=== PATIENT | male | born 1985 | race Caucasian/White ===

== ENCOUNTER 2016-09-05 02:10 | Emergency (ER) | payer MEDICARE, OTHER ==
[~2016-09-05] VITALS: Ht 165.1 cm; Wt 104.5 kg
[~2016-09-05 02:10] MED LIST: AMIT25TA9 PO; OLAN10TA20 PO
[2016-09-05] MEDS ORDERED: CLON1 PO (02:27)
[2016-09-05] MEDS ORDERED: GABA-531 PO (02:27)
[2016-09-05] MEDS ORDERED: ANTIBIOTIC PO (02:27)
[2016-09-05 03:05] LABS: ANION GAP 15 mmol/L (8-16); BASOPHILS # (AUTO) 0.05 K/uL (0.00-0.20); BASOPHILS % (AUTO) 0.5 % (0.0-2.0); CARBON DIOXIDE 21 mmol/L (22-29); CHLORIDE 109 mmol/L (98-107); CREATININE 1.21 mg/dL (0.60-1.30); EOSINOPHILS # (AUTO) 0.06 K/uL (0.00-0.70); EOSINOPHILS % (AUTO) 0.66 % (1.0-6.0); GLOMERULAR FILTR. RATE CALC > 60 mL/min (>60); HEMOGLOBIN 17.2 g/dL (13.5-17.5); LYMPHOCYTES # (AUTO) 2.4 K/uL (1.0-4.8); LYMPHOCYTES % (AUTO) 26.3 % (22.0-44.0); MEAN CORPUSCULAR HEMOGLOBIN 30.3 pg (26.0-34.0); MEAN CORPUSCULAR HGB CONC 33.7 G/dL (31.0-37.0); MEAN CORPUSCULAR VOLUME 90 fL (80-100); MONOCYTES # (AUTO) 0.6 K/uL (0.1-1.0); MONOCYTES % (AUTO) 6.6 % (2.0-9.0); NEUTROPHILS % (AUTO) 65.8 % (40.0-70.0); PLATELET COUNT (AUTO) 338 K/uL (150-450); POTASSIUM 3.7 mmol/L (3.5-5.1); RED BLOOD CELL COUNT(AUTO) 5.68 MIL/uL (4.50-5.90); RED CELL DISTRIBUTION WIDTH 13.1 % (11.5-14.5); SODIUM SERUM 145 mmol/L (136-145); UREA NITROGEN, BLOOD 7 mg/dL (7-18); WHITE BLOOD COUNT (AUTO) 9.1 K/uL (4.5-11.0)
[2016-09-05 03:12] LABS: ALANINE AMINOTRANSFERASE 58 U/L (12-78); ALBUMIN 4.5 g/dL (3.4-5.0); ASPARTATE AMINOTRANSFERASE 35 U/L (15-37); BILIRUBIN,TOTAL 0.3 mg/dL (0.1-1.0); TOTAL PROTEIN, SERUM 8.5 g/dL (6.4-8.2)
[2016-09-05 03:24] VITALS: BP 111/85
[2016-09-05] MEDS ORDERED: ClonazePAM 1 MG TABLET PO ONE (03:45)
== END 2016-09-05 03:59 | disposition home or self-care (01) ==
LOC: EMS 02:12
DX: F32.9 Major depressive disorder, single episode, unspecified (principal); F20.9 Schizophrenia, unspecified; F41.9 Anxiety disorder, unspecified
CPT/HCPCS: 36415; 80053; 80307; 85025; 99285; G0480

== ENCOUNTER 2017-01-21 14:20 | Inpatient (IN) | payer MEDICARE, OTHER ==
[~2017-01-21] VITALS: Ht 172.7 cm; Wt 85.9 kg
[~2017-01-21 14:20] MED LIST changes: -AMIT25TA9 PO; +ANTIBIOTIC PO; +CLON1 PO; +GABA-531 PO; -OLAN10TA20 PO
[2017-01-21 15:54] LABS: BASOPHILS % (AUTO) 0.4 % (0.0-2.0); EOSINOPHILS % (AUTO) 0.1 % (1.0-6.0); HEMATOCRIT 49.3 % (41-53); HEMOGLOBIN 17.1 g/dL (13.5-17.5); LYMPHOCYTES # (AUTO) 2.4 K/uL (1.0-4.8); LYMPHOCYTES % (AUTO) 18.6 % (22.0-44.0); MEAN CORPUSCULAR HEMOGLOBIN 30.7 pg (26.0-34.0); MEAN CORPUSCULAR HGB CONC 34.8 G/dL (31.0-37.0); MEAN CORPUSCULAR VOLUME 88 fL (80-100); MONOCYTES # (AUTO) 0.9 K/uL (0.1-1.0); MONOCYTES % (AUTO) 7.3 % (2.0-9.0); NEUTROPHILS # (AUTO) 9.3 K/uL (1.8-7.7); NEUTROPHILS % (AUTO) 73.6 % (40.0-70.0); PLATELET COUNT (AUTO) 290 K/uL (150-450); RED BLOOD CELL COUNT(AUTO) 5.59 MIL/uL (4.50-5.90); RED CELL DISTRIBUTION WIDTH 13.7 % (11.5-14.5); WHITE BLOOD COUNT (AUTO) 12.7 K/uL (4.5-11.0)
[2017-01-21 16:20] LABS: ALANINE AMINOTRANSFERASE 35 U/L (12-78); ALBUMIN 5.1 g/dL (3.4-5.0); ANION GAP 12 mmol/L (8-16); ASPARTATE AMINOTRANSFERASE 19 U/L (15-37); BILIRUBIN,TOTAL 1.6 mg/dL (0.1-1.0); CALCIUM, TOTAL 10.3 mg/dL (8.8-10.5); CARBON DIOXIDE 28 mmol/L (22-29); CHLORIDE 101 mmol/L (98-107); CREATININE 0.99 mg/dL (0.60-1.30); GLOMERULAR FILTR. RATE CALC > 60 mL/min (>60); POTASSIUM 4.2 mmol/L (3.5-5.1); SODIUM SERUM 141 mmol/L (136-145); TOTAL PROTEIN, SERUM 9.1 g/dL (6.4-8.2); UREA NITROGEN, BLOOD 24 mg/dL (7-18)
[2017-01-21] MEDS ORDERED: LORazepam 2 MG TABLET PO ONE (19:30)
[2017-01-21] MEDS ORDERED: BENZTROPINE MESYLATE 1 MG TABLET PO ONE (19:30)
[2017-01-21] MEDS ORDERED: HALOPERIDOL 5 MG TABLET PO ONE (19:30)
[2017-01-21] MEDS ORDERED: INFLUENZA VIRUS VACCINE QVS 2017-18 (3YR+)/PF 60 MCG/0.5 ML SYRINGE IM ONE (21:30)
[2017-01-21] MEDS ORDERED: -PHARMACY VACCINE NOTE- MISC ONE ×2 (21:30)
[2017-01-21] MEDS ORDERED: PNEUMOCOCCAL VACCINE POLYVALENT 0.5 ML VIAL [PPSV23] IM ONE (21:30)
[2017-01-21] MEDS: ZOLPIDEM TARTRATE 10 MG TABLET PO PRN (22:23)
[2017-01-21] MEDS: QUEtiapine FUMARATE 100 MG TABLET PO PRN (22:27)
[2017-01-22 08:11] VITALS: BP 114/66
[2017-01-22 08:45] LABS: APPEARANCE,URINE TURBID (CLEAR); GLUCOSE, URINE (UA) NEGATIVE (NEGATIVE); KETONES,URINE 15 mg/dL (NEGATIVE); LEUKOCYTE ESTERASE ,URINE NEGATIVE (NEGATIVE); OCCULT BLOOD,URINE NEGATIVE (NEGATIVE); PROTEIN,URINE TRACE (NEGATIVE)
[2017-01-22 09:04] LABS: SQUAMOUS EPITHELIAL CELL,UR Few /LPF (None Seen); WBC,URINE 0-2 /HPF (0-5)
[2017-01-22 09:05] LABS: AMORPHOUS SEDIMENT,UR Many /LPF (None Seen); CALCIUM OXALATE CRYSTALS,UR Rare /LPF (None Seen)
[2017-01-22] MEDS ORDERED: MAGNESIUM HYDROXIDE SUSPENSION 30 ML UDCUP PO PRN (13:45)
[2017-01-22] MEDS ORDERED: PROMETHAZINE HCL 25 MG TABLET PO PRN (13:45)
[2017-01-22] MEDS ORDERED: GuaiFENesin/D-METHORPHAN [SUGAR-FREE] 200-20MG/10 ML SYRUP UDCUP PO PRN (13:45)
[2017-01-22] MEDS ORDERED: OLANZapine 5 MG RAPDIS TABLET PO PRN (13:45)
[2017-01-22] MEDS ORDERED: LOPERAMIDE HCL 2 MG CAPSULE PO PRN (13:45)
[2017-01-22] MEDS ORDERED: ACETAMINOPHEN 325 MG TABLET PO PRN (13:45)
[2017-01-22] MEDS ORDERED: MAG HYDROX/AL HYDROX/SIMETH ES 30 ML SUSPENSION UDCUP PO PRN (13:45)
[2017-01-22] MEDS ORDERED: HydrOXYzine PAMOATE 50 MG CAPSULE PO PRN (13:45)
[2017-01-22] MEDS: LORazepam 2 MG TABLET PO PRN (16:02)
[2017-01-22 16:06] VITALS: BP 119/69
[2017-01-22] MEDS: THIAMINE HCL 100 MG TABLET PO SCH (16:31)
[2017-01-22] MEDS: QUEtiapine FUMARATE 100 MG TABLET PO PRN (17:26)
[2017-01-22] MEDS: DIVALPROEX SODIUM 500 MG ER TABLET PO SCH (20:27)
[2017-01-22] MEDS ORDERED: OLANZapine 5 MG RAPDIS TABLET PO SCH (21:00)
[2017-01-23 08:13] VITALS: BP 117/68
[2017-01-23] MEDS: NALTREXONE HCL 50 MG TABLET PO SCH (08:16)
[2017-01-23] MEDS: MULTIVITAMINS WITH MINERALS, THERAPEUTIC TABLET PO SCH (08:17)
[2017-01-23] MEDS: THIAMINE HCL 100 MG TABLET PO SCH ×2 (08:17→16:18)
[2017-01-23] MEDS: FOLIC ACID 1 MG TABLET PO SCH (08:17)
[2017-01-23 16:01] VITALS: BP 111/62
[2017-01-23] MEDS: OLANZapine 10 MG RAPDIS TABLET PO SCH (20:32)
[2017-01-23] MEDS: DIVALPROEX SODIUM 500 MG ER TABLET PO SCH (20:32)
[2017-01-23] MEDS: ZOLPIDEM TARTRATE 10 MG TABLET PO PRN (20:40)
[2017-01-23] MEDS: LORazepam 2 MG TABLET PO PRN (21:24)
[2017-01-24 00:03] VITALS: BP 118/76
[2017-01-24 08:24] VITALS: BP 118/60
[2017-01-24] MEDS: MULTIVITAMINS WITH MINERALS, THERAPEUTIC TABLET PO SCH (08:37)
[2017-01-24] MEDS: NALTREXONE HCL 50 MG TABLET PO SCH (08:37)
[2017-01-24] MEDS: THIAMINE HCL 100 MG TABLET PO SCH ×2 (08:37→16:33)
[2017-01-24] MEDS: FOLIC ACID 1 MG TABLET PO SCH (08:37)
[2017-01-24 16:20] VITALS: BP 111/65
[2017-01-24] MEDS: DIVALPROEX SODIUM 500 MG ER TABLET PO SCH (20:40)
[2017-01-24] MEDS: OLANZapine 10 MG RAPDIS TABLET PO SCH (20:40)
[2017-01-24] MEDS: LORazepam 2 MG TABLET PO PRN (21:38)
[2017-01-25 06:23] VITALS: BP 104/60
[2017-01-25 08:00] VITALS: BP 120/66
[2017-01-25] MEDS: NALTREXONE HCL 50 MG TABLET PO SCH (08:41)
[2017-01-25] MEDS: FOLIC ACID 1 MG TABLET PO SCH (08:41)
[2017-01-25] MEDS: MULTIVITAMINS WITH MINERALS, THERAPEUTIC TABLET PO SCH (08:41)
[2017-01-25] MEDS: THIAMINE HCL 100 MG TABLET PO SCH ×2 (08:41→16:37)
[2017-01-25 16:01] VITALS: BP 121/66
[2017-01-25] MEDS: DIVALPROEX SODIUM 500 MG ER TABLET PO SCH (20:43)
[2017-01-25] MEDS: OLANZapine 10 MG RAPDIS TABLET PO SCH (20:43)
[2017-01-25] MEDS: LORazepam 2 MG TABLET PO PRN (21:23)
[2017-01-26 00:04] VITALS: BP 117/75
[2017-01-26] MEDS: ZOLPIDEM TARTRATE 10 MG TABLET PO PRN ×2 (00:07→22:39)
[2017-01-26] MEDS: MULTIVITAMINS WITH MINERALS, THERAPEUTIC TABLET PO SCH (08:33)
[2017-01-26] MEDS: NALTREXONE HCL 50 MG TABLET PO SCH (08:33)
[2017-01-26] MEDS: FOLIC ACID 1 MG TABLET PO SCH (08:33)
[2017-01-26] MEDS: THIAMINE HCL 100 MG TABLET PO SCH ×2 (08:33→16:52)
[2017-01-26 08:35] VITALS: BP 119/63
[2017-01-26] MEDS: LORazepam 2 MG TABLET PO PRN ×2 (14:27→19:34)
[2017-01-26 16:34] VITALS: BP 110/80
[2017-01-26] MEDS: DIVALPROEX SODIUM 500 MG ER TABLET PO SCH (20:51)
[2017-01-26] MEDS: OLANZapine 10 MG RAPDIS TABLET PO SCH (20:51)
[2017-01-27 00:15] VITALS: BP 128/93
[2017-01-27] MEDS: LORazepam 2 MG TABLET PO PRN ×3 (00:26→19:12)
[2017-01-27 08:27] VITALS: BP 115/69
[2017-01-27] MEDS: MULTIVITAMINS WITH MINERALS, THERAPEUTIC TABLET PO SCH (08:35)
[2017-01-27] MEDS: FOLIC ACID 1 MG TABLET PO SCH (08:35)
[2017-01-27] MEDS: THIAMINE HCL 100 MG TABLET PO SCH ×2 (08:35→16:30)
[2017-01-27] MEDS: NALTREXONE HCL 50 MG TABLET PO SCH (08:35)
[2017-01-27 08:48] LABS: BASOPHILS % (AUTO) 0.8 % (0.0-2.0); EOSINOPHILS % (AUTO) 2.2 % (1.0-6.0); HEMATOCRIT 43.9 % (41-53); LYMPHOCYTES # (AUTO) 3.3 K/uL (1.0-4.8); LYMPHOCYTES % (AUTO) 35.8 % (22.0-44.0); MEAN CORPUSCULAR HEMOGLOBIN 30.1 pg (26.0-34.0); MEAN CORPUSCULAR HGB CONC 34.2 G/dL (31.0-37.0); MEAN CORPUSCULAR VOLUME 88 fL (80-100); MONOCYTES # (AUTO) 0.6 K/uL (0.1-1.0); MONOCYTES % (AUTO) 6.4 % (2.0-9.0); NEUTROPHILS # (AUTO) 5.1 K/uL (1.8-7.7); NEUTROPHILS % (AUTO) 54.8 % (40.0-70.0); PLATELET COUNT (AUTO) 267 K/uL (150-450); RED BLOOD CELL COUNT(AUTO) 4.99 MIL/uL (4.50-5.90); RED CELL DISTRIBUTION WIDTH 14.1 % (11.5-14.5); WHITE BLOOD COUNT (AUTO) 9.3 K/uL (4.5-11.0)
[2017-01-27] MEDS ORDERED: DIVA500T52 PO (14:43)
[2017-01-27 16:03] VITALS: BP 117/76
[2017-01-27] MEDS: DIVALPROEX SODIUM 500 MG ER TABLET PO SCH (20:16)
[2017-01-27] MEDS: OLANZapine 10 MG RAPDIS TABLET PO SCH (20:16)
[2017-01-27] MEDS: ZOLPIDEM TARTRATE 10 MG TABLET PO PRN (20:55)
[2017-01-28 00:02] VITALS: BP 121/79
[2017-01-28 08:19] VITALS: BP 121/70
[2017-01-28] MEDS: FOLIC ACID 1 MG TABLET PO SCH (08:25)
[2017-01-28] MEDS: THIAMINE HCL 100 MG TABLET PO SCH ×2 (08:25→16:28)
[2017-01-28] MEDS: NALTREXONE HCL 50 MG TABLET PO SCH (08:25)
[2017-01-28] MEDS: MULTIVITAMINS WITH MINERALS, THERAPEUTIC TABLET PO SCH (08:25)
[2017-01-28] MEDS: LORazepam 2 MG TABLET PO PRN (13:17)
[2017-01-28] MEDS ORDERED: NALT50TA PO (15:30)
[2017-01-28] MEDS ORDERED: DIVA500T52 PO (15:30)
[2017-01-28] MEDS ORDERED: OLAN10TA22 PO (15:30)
[2017-01-28 16:02] VITALS: BP 115/72
[2017-01-28] MEDS: DIVALPROEX SODIUM 500 MG ER TABLET PO SCH (20:20)
[2017-01-28] MEDS: OLANZapine 10 MG RAPDIS TABLET PO SCH (20:21)
[2017-01-29 00:05] VITALS: BP 121/78
[2017-01-29] MEDS: MULTIVITAMINS WITH MINERALS, THERAPEUTIC TABLET PO SCH (08:22)
[2017-01-29] MEDS: FOLIC ACID 1 MG TABLET PO SCH (08:22)
[2017-01-29] MEDS: NALTREXONE HCL 50 MG TABLET PO SCH (08:22)
[2017-01-29 08:23] VITALS: BP 117/57
[2017-01-29] MEDS: THIAMINE HCL 100 MG TABLET PO SCH (08:23)
== END 2017-01-29 13:53 | disposition home or self-care (01) | DRG 885 ==
LOC: EMS 14:23 → B2X 19:48
PROVIDERS: ADMIT Psychiatry & Neurology Psychiatry; ATTEND Psychiatry & Neurology Psychiatry
DX: F20.0 Paranoid schizophrenia (principal); Z91.19 Patient's noncompliance with other medical treatment and regimen; E66.9 Obesity, unspecified; G47.00 Insomnia, unspecified; Z79.899 Other long term (current) drug therapy; Z81.8 Family history of other mental and behavioral disorders; Z28.21 Immunization not carried out because of patient refusal
CPT/HCPCS: 80307; 87081; 87086; 99285; G0480

== ENCOUNTER 2017-05-13 22:40 | Emergency (ER) | payer MEDICARE ==
[~2017-05-13] VITALS: Ht 170.2 cm; Wt 85.3 kg
[~2017-05-13 22:40] MED LIST changes: -ANTIBIOTIC PO; -CLON1 PO; +DIVA500T52 PO; -GABA-531 PO; +NALT50TA PO; +OLAN10TA22 PO
[2017-05-14] MEDS ORDERED: LORazepam 1 MG TABLET PO ONE (01:45)
[2017-05-14 01:53] VITALS: BP 133/86
== END 2017-05-14 01:53 | disposition home or self-care (01) ==
LOC: EMS 22:43
DX: F41.9 Anxiety disorder, unspecified (principal); G47.00 Insomnia, unspecified; F20.9 Schizophrenia, unspecified; Z79.899 Other long term (current) drug therapy
CPT/HCPCS: 99284

== ENCOUNTER 2017-05-15 23:05 | Emergency (ER) | payer MEDICARE ==
[~2017-05-15] VITALS: Ht 170.2 cm; Wt 100.0 kg
[2017-05-16 03:57] VITALS: BP 126/90
[2017-05-16] MEDS ORDERED: ClonazePAM 1 MG TABLET PO ONE (04:00)
== END 2017-05-16 05:00 | disposition home or self-care (01) ==
LOC: EMS 23:07
DX: G47.00 Insomnia, unspecified (principal); F41.9 Anxiety disorder, unspecified; F20.9 Schizophrenia, unspecified; Z76.0 Encounter for issue of repeat prescription
CPT/HCPCS: 99283

== ENCOUNTER 2017-08-01 13:34 | Emergency (ER) | payer MEDICARE, MEDICAID ==
[~2017-08-01] VITALS: Ht 175.3 cm; Wt 90.9 kg
[2017-08-01 13:38] VITALS: BP 153/103
== END 2017-08-01 15:27 | disposition left against medical advice (07) ==
LOC: EMS 13:36
DX: F20.0 Paranoid schizophrenia (principal); F41.9 Anxiety disorder, unspecified
CPT/HCPCS: 99284

== ENCOUNTER 2017-08-08 13:31 | Inpatient (IN) | payer MEDICARE, MEDICAID ==
[~2017-08-08] VITALS: Ht 167.6 cm; Wt 92.5 kg
[2017-08-08 16:37] LABS: BASOPHILS % (AUTO) 0.5 % (0.0-2.0); EOSINOPHILS % (AUTO) 0.1 % (1.0-6.0); HEMATOCRIT 45.5 % (41-53); LYMPHOCYTES # (AUTO) 1.1 K/uL (1.0-4.8); LYMPHOCYTES % (AUTO) 6.5 % (22.0-44.0); MEAN CORPUSCULAR HEMOGLOBIN 30.3 pg (26.0-34.0); MEAN CORPUSCULAR HGB CONC 35.1 G/dL (31.0-37.0); MEAN CORPUSCULAR VOLUME 86 fL (80-100); MONOCYTES # (AUTO) 1.1 K/uL (0.1-1.0); MONOCYTES % (AUTO) 6.4 % (2.0-9.0); NEUTROPHILS # (AUTO) 14.3 K/uL (1.8-7.7); PLATELET COUNT (AUTO) 261 K/uL (150-450); RED BLOOD CELL COUNT(AUTO) 5.27 MIL/uL (4.50-5.90); RED CELL DISTRIBUTION WIDTH 13.1 % (11.5-14.5)
[2017-08-08 16:38] LABS: NEUTROPHILS % (AUTO) 86.5 % (40.0-70.0)
[2017-08-08 16:46] LABS: ANION GAP 5 mmol/L (8-16); CALCIUM, TOTAL 8.8 mg/dL (8.8-10.5); CARBON DIOXIDE 28 mmol/L (22-29); CHLORIDE 105 mmol/L (98-107); CREATININE 0.98 mg/dL (0.60-1.30); GLOMERULAR FILTR. RATE CALC > 60 mL/min (>60); GLUCOSE,RANDOM 101 mg/dL (70-110); SODIUM SERUM 138 mmol/L (136-145); UREA NITROGEN, BLOOD 17 mg/dL (7-18)
[2017-08-08 16:54] LABS: ALANINE AMINOTRANSFERASE 46 U/L (12-78); ALBUMIN 4.3 g/dL (3.4-5.0); ALKALINE PHOSPHATASE 86 U/L (46-116); ASPARTATE AMINOTRANSFERASE 24 U/L (15-37); BILIRUBIN,TOTAL 1.5 mg/dL (0.1-1.0); TOTAL PROTEIN, SERUM 8.1 g/dL (6.4-8.2)
[2017-08-08 17:16] LABS: VALPROIC ACID < 3 mcg/mL (50-100)
[2017-08-08] MEDS ORDERED: LORazepam 2 MG/ML VIAL IM ONE (17:45)
[2017-08-08] MEDS ORDERED: HALOPERIDOL LACTATE 5 MG/ML VIAL IM ONE (17:45)
[2017-08-08] MEDS ORDERED: LORazepam 2 MG TABLET PO PRN (18:15)
[2017-08-08] MEDS ORDERED: HALOPERIDOL 5 MG TABLET PO PRN (18:15)
[2017-08-08] MEDS ORDERED: ZOLPIDEM TARTRATE 10 MG TABLET PO PRN (18:15)
[2017-08-08 21:37] VITALS: BP 123/73
[2017-08-09 06:40] VITALS: BP 127/75
[2017-08-09 08:24] VITALS: BP 107/65
[2017-08-09 09:06] LABS: BASOPHILS % (AUTO) 0.4 % (0.0-2.0); EOSINOPHILS % (AUTO) 0.2 % (1.0-6.0); HEMATOCRIT 46.8 % (41-53); HEMOGLOBIN 16.4 g/dL (13.5-17.5); LYMPHOCYTES # (AUTO) 2.2 K/uL (1.0-4.8); LYMPHOCYTES % (AUTO) 12.7 % (22.0-44.0); MEAN CORPUSCULAR HEMOGLOBIN 30.5 pg (26.0-34.0); MEAN CORPUSCULAR VOLUME 87 fL (80-100); MONOCYTES # (AUTO) 1.5 K/uL (0.1-1.0); MONOCYTES % (AUTO) 8.5 % (2.0-9.0); NEUTROPHILS # (AUTO) 13.9 K/uL (1.8-7.7); NEUTROPHILS % (AUTO) 78.2 % (40.0-70.0); PLATELET COUNT (AUTO) 280 K/uL (150-450); RED BLOOD CELL COUNT(AUTO) 5.38 MIL/uL (4.50-5.90); RED CELL DISTRIBUTION WIDTH 13.3 % (11.5-14.5)
[2017-08-09] MEDS ORDERED: IBUPROFEN 400 MG TABLET PO PRN (10:00)
[2017-08-09] MEDS ORDERED: ACETAMINOPHEN 325 MG TABLET PO PRN (10:00)
[2017-08-09 16:04] VITALS: BP 126/73
[2017-08-09] MEDS: OLANZapine 10 MG TABLET PO SCH (20:57)
[2017-08-09] MEDS: DIVALPROEX SODIUM 500 MG ER TABLET PO SCH (20:57)
[2017-08-09] MEDS ORDERED: DIVALPROEX SODIUM 500 MG DR TABLET PO SCH (21:00)
[2017-08-10 00:15] VITALS: BP 128/88
[2017-08-10 08:29] VITALS: BP 133/72
[2017-08-10 08:50] LABS: AMPHET/METH SCREEN,URINE NEGATIVE (NEGATIVE); BARBITURATE SCREEN, URINE NEGATIVE (NEGATIVE); BENZODIAZEPINES SCREEN,URINE NEGATIVE (NEGATIVE); CANNABINOID SCREEN,URINE POSITIVE (NEGATIVE); COCAINE SCREEN,URINE NEGATIVE (NEGATIVE); METHADONE SCREEN, URINE NEGATIVE (NEGATIVE); OPIATE SCREEN,URINE NEGATIVE (NEGATIVE)
[2017-08-10 08:51] LABS: PHENCYCLIDINE SCREEN,URINE NEGATIVE (NEGATIVE)
[2017-08-10 16:03] VITALS: BP 117/71
[2017-08-10] MEDS: OLANZapine 10 MG TABLET PO SCH (20:40)
[2017-08-10] MEDS: DIVALPROEX SODIUM 500 MG ER TABLET PO SCH (20:42)
[2017-08-11 00:30] VITALS: BP 135/78
[2017-08-11 07:54] LABS: APPEARANCE,URINE CLOUDY (CLEAR); BILIRUBIN,URINE NEGATIVE (NEGATIVE); GLUCOSE, URINE (UA) NEGATIVE (NEGATIVE); KETONES,URINE NEGATIVE (NEGATIVE); LEUKOCYTE ESTERASE ,URINE NEGATIVE (NEGATIVE); NITRATE,URINE NEGATIVE (NEGATIVE); OCCULT BLOOD,URINE NEGATIVE (NEGATIVE); PROTEIN,URINE NEGATIVE (NEGATIVE)
[2017-08-11 08:05] LABS: RBC,URINE None Seen /HPF (0-2)
[2017-08-11 08:06] LABS: AMORPHOUS SEDIMENT,UR Moderate /LPF (None Seen); BACTERIA,URINE Few /HPF (None Seen); SQUAMOUS EPITHELIAL CELL,UR None Seen /LPF (None Seen); WBC,URINE 0-2 /HPF (0-5)
[2017-08-11 08:15] VITALS: BP 126/74
[2017-08-11 13:03] LABS: AMPHET/METH SCREEN,URINE NEGATIVE (NEGATIVE); BARBITURATE SCREEN, URINE NEGATIVE (NEGATIVE); BENZODIAZEPINES SCREEN,URINE NEGATIVE (NEGATIVE); CANNABINOID SCREEN,URINE POSITIVE (NEGATIVE); COCAINE SCREEN,URINE NEGATIVE (NEGATIVE); METHADONE SCREEN, URINE NEGATIVE (NEGATIVE); OPIATE SCREEN,URINE NEGATIVE (NEGATIVE)
[2017-08-11 13:07] LABS: PHENCYCLIDINE SCREEN,URINE NEGATIVE (NEGATIVE)
[2017-08-11 16:05] VITALS: BP 117/63
[2017-08-11] MEDS: MAGNESIUM HYDROXIDE SUSPENSION 30 ML UDCUP PO PRN (16:30)
[2017-08-11] MEDS: OLANZapine 10 MG TABLET PO SCH (20:34)
[2017-08-11] MEDS: DIVALPROEX SODIUM 500 MG ER TABLET PO SCH (20:34)
[2017-08-12 05:26] VITALS: BP 126/84
[2017-08-12 08:28] VITALS: BP 127/79
[2017-08-12 16:04] VITALS: BP 127/73
[2017-08-12] MEDS: MAGNESIUM HYDROXIDE SUSPENSION 30 ML UDCUP PO PRN (18:45)
[2017-08-12] MEDS: DIVALPROEX SODIUM 500 MG ER TABLET PO SCH (20:41)
[2017-08-12] MEDS: OLANZapine 10 MG TABLET PO SCH (20:41)
[2017-08-13 05:51] VITALS: BP 118/81
[2017-08-13 08:19] VITALS: BP 123/79
[2017-08-13 16:07] VITALS: BP 111/65
[2017-08-13] MEDS: OLANZapine 10 MG TABLET PO SCH (20:42)
[2017-08-13] MEDS: DIVALPROEX SODIUM 500 MG ER TABLET PO SCH (20:42)
[2017-08-14 02:04] VITALS: BP 123/67
[2017-08-14 08:14] VITALS: BP 129/85
[2017-08-14 08:45] LABS: BASOPHILS % (AUTO) 0.7 % (0.0-2.0); EOSINOPHILS % (AUTO) 1.5 % (1.0-6.0); HEMATOCRIT 42.7 % (41-53); HEMOGLOBIN 15.4 g/dL (13.5-17.5); LYMPHOCYTES # (AUTO) 3.9 K/uL (1.0-4.8); MEAN CORPUSCULAR HEMOGLOBIN 30.9 pg (26.0-34.0); MEAN CORPUSCULAR HGB CONC 35.9 G/dL (31.0-37.0); MEAN CORPUSCULAR VOLUME 86 fL (80-100); MONOCYTES # (AUTO) 0.8 K/uL (0.1-1.0); MONOCYTES % (AUTO) 7.4 % (2.0-9.0); NEUTROPHILS # (AUTO) 5.9 K/uL (1.8-7.7); NEUTROPHILS % (AUTO) 54.4 % (40.0-70.0); PLATELET COUNT (AUTO) 314 K/uL (150-450); RED BLOOD CELL COUNT(AUTO) 4.97 MIL/uL (4.50-5.90); RED CELL DISTRIBUTION WIDTH 12.8 % (11.5-14.5)
[2017-08-14 16:12] VITALS: BP 141/84
[2017-08-14] MEDS: OLANZapine 10 MG TABLET PO SCH (20:37)
[2017-08-14] MEDS: DIVALPROEX SODIUM 500 MG ER TABLET PO SCH (20:37)
[2017-08-15 02:11] VITALS: BP 124/73
[2017-08-15 08:39] VITALS: BP 132/85
[2017-08-15] MEDS ORDERED: OLAN10TA3 PO (10:04)
== END 2017-08-15 13:10 | disposition home or self-care (01) | DRG 885 ==
LOC: EMS 13:32 → B2X 19:11
PROVIDERS: ADMIT Psychiatry & Neurology Child & Adolescent Psychiatry; ATTEND Psychiatry & Neurology Child & Adolescent Psychiatry
DX: F20.0 Paranoid schizophrenia (principal); R45.851 Suicidal ideations; D72.829 Elevated white blood cell count, unspecified; E66.9 Obesity, unspecified; G47.00 Insomnia, unspecified; K59.00 Constipation, unspecified; E80.6 Other disorders of bilirubin metabolism; F41.9 Anxiety disorder, unspecified; Z91.14 Patient's other noncompliance with medication regimen; Z79.899 Other long term (current) drug therapy; Z68.32 Body mass index [BMI] 32.0-32.9, adult
CPT/HCPCS: 80307; 84443; 90472; 99285; G0480; J1630; J2060

== ENCOUNTER 2018-01-03 01:06 | Emergency (ER) | payer MEDICARE, MEDICAID ==
[~2018-01-03] VITALS: Ht 170.2 cm; Wt 101.0 kg
[~2018-01-03 01:06] MED LIST changes: -DIVA500T52 PO; -NALT50TA PO; -OLAN10TA22 PO; +OLAN10TA3 PO; +SERT100T12 PO
[2018-01-03 02:03] LABS: BASOPHILS % (AUTO) 0.8 % (0.0-2.0); EOSINOPHILS % (AUTO) 0.2 % (1.0-6.0); HEMATOCRIT 48.6 % (41-53); HEMOGLOBIN 17.1 g/dL (13.5-17.5); LYMPHOCYTES # (AUTO) 2.9 K/uL (1.0-4.8); LYMPHOCYTES % (AUTO) 19.2 % (22.0-44.0); MEAN CORPUSCULAR HEMOGLOBIN 30.4 pg (26.0-34.0); MEAN CORPUSCULAR HGB CONC 35.3 G/dL (31.0-37.0); MEAN CORPUSCULAR VOLUME 86 fL (80-100); MONOCYTES # (AUTO) 1.2 K/uL (0.1-1.0); MONOCYTES % (AUTO) 7.9 % (2.0-9.0); NEUTROPHILS % (AUTO) 71.9 % (40.0-70.0); PLATELET COUNT (AUTO) 338 K/uL (150-450); RED BLOOD CELL COUNT(AUTO) 5.64 MIL/uL (4.50-5.90)
[2018-01-03 02:12] LABS: ANION GAP 12 mmol/L (8-16); CALCIUM, TOTAL 9.2 mg/dL (8.8-10.5); CARBON DIOXIDE 23 mmol/L (22-29); CHLORIDE 103 mmol/L (98-107); CREATININE 1.04 mg/dL (0.60-1.30); GLOMERULAR FILTR. RATE CALC > 60 mL/min (>60); GLUCOSE,RANDOM 101 mg/dL (70-110); POTASSIUM 4.3 mmol/L (3.5-5.1); SODIUM SERUM 138 mmol/L (136-145); UREA NITROGEN, BLOOD 9 mg/dL (7-18)
[2018-01-03 02:18] LABS: ALANINE AMINOTRANSFERASE 63 U/L (12-78); ALBUMIN 4.5 g/dL (3.4-5.0); ALKALINE PHOSPHATASE 89 U/L (46-116); ASPARTATE AMINOTRANSFERASE 68 U/L (15-37); BILIRUBIN,TOTAL 0.7 mg/dL (0.1-1.0); TOTAL PROTEIN, SERUM 8.3 g/dL (6.4-8.2)
[2018-01-03 03:40] LABS: AMPHET/METH SCREEN,URINE POSITIVE (NEGATIVE); BARBITURATE SCREEN, URINE NEGATIVE (NEGATIVE); BENZODIAZEPINES SCREEN,URINE NEGATIVE (NEGATIVE); CANNABINOID SCREEN,URINE NEGATIVE (NEGATIVE); COCAINE SCREEN,URINE NEGATIVE (NEGATIVE); METHADONE SCREEN, URINE NEGATIVE (NEGATIVE); OPIATE SCREEN,URINE NEGATIVE (NEGATIVE); PHENCYCLIDINE SCREEN,URINE NEGATIVE (NEGATIVE)
[2018-01-03 06:12] VITALS: BP 121/71
== END 2018-01-03 06:05 | disposition home or self-care (01) ==
LOC: EMS 01:07
DX: F20.0 Paranoid schizophrenia (principal); F41.9 Anxiety disorder, unspecified; Z79.899 Other long term (current) drug therapy; F15.10 Other stimulant abuse, uncomplicated; F15.129 Other stimulant abuse with intoxication, unspecified
CPT/HCPCS: 36415; 80053; 80307; 85025; 99285; G0480

== ENCOUNTER 2018-02-11 17:04 | Inpatient (IN) | payer MEDICARE, MEDICAID ==
[~2018-02-11] VITALS: Ht 170.2 cm; Wt 103.4 kg
[2018-02-11] MEDS ORDERED: ZOLPIDEM TARTRATE 10 MG TABLET PO PRN (17:45)
[2018-02-11] MEDS ORDERED: HALOPERIDOL 5 MG TABLET PO PRN (17:45)
[2018-02-11] MEDS ORDERED: ALBUTEROL SULFATE HFA 90 MCG/PUFF 8 GM INHALER IH PRN (20:15)
[2018-02-11] MEDS ORDERED: NICOTINE 14 MG/24 HOUR PATCH TD PRN (20:15)
[2018-02-11] MEDS ORDERED: GuaiFENesin/D-METHORPHAN [SUGAR-FREE] 200-20MG/10 ML SYRUP UDCUP PO PRN (20:15)
[2018-02-11] MEDS ORDERED: IBUPROFEN 400 MG TABLET PO PRN (20:15)
[2018-02-11] MEDS ORDERED: PETROLATUM,WHITE 71 GM JELLY TP PRN (20:15)
[2018-02-11] MEDS ORDERED: DOCUSATE SODIUM 100 MG CAPSULE PO PRN (20:15)
[2018-02-11] MEDS ORDERED: MAGNESIUM HYDROXIDE SUSPENSION 30 ML UDCUP PO PRN (20:15)
[2018-02-11] MEDS ORDERED: MAG HYDROX/AL HYDROX/SIMETH ES 30 ML SUSPENSION UDCUP PO PRN (20:15)
[2018-02-11] MEDS ORDERED: ACETAMINOPHEN 325 MG TABLET PO PRN (20:15)
[2018-02-11] MEDS ORDERED: CloNIDine HCL 0.1 MG TABLET PO PRN (20:15)
[2018-02-11] MEDS ORDERED: ONDANSETRON HCL 4 MG TABLET PO PRN (20:15)
[2018-02-11] MEDS ORDERED: LOPERAMIDE HCL 2 MG CAPSULE PO PRN (20:15)
[2018-02-11] MEDS: SERTRALINE HCL 100 MG TABLET PO SCH (20:34)
[2018-02-11] MEDS: OLANZapine 10 MG TABLET PO SCH (20:34)
[2018-02-11 21:18] VITALS: BP 128/79
[2018-02-12 05:39] VITALS: BP 121/67
[2018-02-12 08:23] LABS: BASOPHILS % (AUTO) 0.5 % (0.0-2.0); EOSINOPHILS % (AUTO) 0.5 % (1.0-6.0); HEMATOCRIT 46.7 % (41-53); HEMOGLOBIN 16.3 g/dL (13.5-17.5); LYMPHOCYTES # (AUTO) 2.6 K/uL (1.0-4.8); LYMPHOCYTES % (AUTO) 24.3 % (22.0-44.0); MEAN CORPUSCULAR HEMOGLOBIN 30.7 pg (26.0-34.0); MEAN CORPUSCULAR HGB CONC 34.9 G/dL (31.0-37.0); MEAN CORPUSCULAR VOLUME 88 fL (80-100); MONOCYTES # (AUTO) 0.7 K/uL (0.1-1.0); MONOCYTES % (AUTO) 6.3 % (2.0-9.0); NEUTROPHILS # (AUTO) 7.2 K/uL (1.8-7.7); NEUTROPHILS % (AUTO) 68.4 % (40.0-70.0); PLATELET COUNT (AUTO) 296 K/uL (150-450); RED CELL DISTRIBUTION WIDTH 13.7 % (11.5-14.5)
[2018-02-12 08:24] VITALS: BP 137/80
[2018-02-12 08:31] LABS: HEMOGLOBIN A1C 5.2 % (4.5-6.2)
[2018-02-12 08:44] LABS: ALANINE AMINOTRANSFERASE 51 U/L (12-78); ALKALINE PHOSPHATASE 80 U/L (46-116); ANION GAP 9 mmol/L (8-16); ASPARTATE AMINOTRANSFERASE 27 U/L (15-37); BILIRUBIN,TOTAL 0.6 mg/dL (0.1-1.0); CALCIUM, TOTAL 8.8 mg/dL (8.8-10.5); CARBON DIOXIDE 26 mmol/L (22-29); CHLORIDE 106 mmol/L (98-107); CHOL/HDL RATIO 5.4 (4.2-7.3); CHOLESTEROL 179 mg/dL (131-200); CREATININE 0.95 mg/dL (0.60-1.30); FREE T4 (FREE THYROXINE) 1.18 ng/dL (0.76-1.46); GLOMERULAR FILTR. RATE CALC > 60 mL/min (>60); GLUCOSE,RANDOM 102 mg/dL (70-110); HDL CHOLESTEROL 33 mg/dL (40-60); LDL CHOL (CALC.) 128 mg/dL (0-130); POTASSIUM 4.2 mmol/L (3.5-5.1); SODIUM SERUM 141 mmol/L (136-145); TOTAL PROTEIN, SERUM 7.3 g/dL (6.4-8.2); TRIGLYCERIDES 92 mg/dL (15-150); UREA NITROGEN, BLOOD 16 mg/dL (7-18)
[2018-02-12 16:07] VITALS: BP 141/87
[2018-02-12 18:00] VITALS: BP 126/72
[2018-02-12] MEDS: SERTRALINE HCL 100 MG TABLET PO SCH (20:34)
[2018-02-12] MEDS: OLANZapine 10 MG TABLET PO SCH (20:34)
[2018-02-12] MEDS: DiphenhydrAMINE HCL 25 MG CAPSULE PO SCH (20:34)
[2018-02-13 04:56] VITALS: BP 121/72
[2018-02-13 08:19] VITALS: BP 172/101
[2018-02-13 09:20] VITALS: BP 118/86
[2018-02-13 16:10] VITALS: BP 119/90
[2018-02-13] MEDS: OLANZapine 10 MG TABLET PO SCH (20:32)
[2018-02-13] MEDS: SERTRALINE HCL 100 MG TABLET PO SCH (20:32)
[2018-02-13] MEDS: DiphenhydrAMINE HCL 25 MG CAPSULE PO SCH (20:32)
[2018-02-14 06:33] VITALS: BP 123/96
[2018-02-14 08:00] VITALS: BP 125/86
[2018-02-14 16:08] VITALS: BP 129/81
[2018-02-14] MEDS: SERTRALINE HCL 100 MG TABLET PO SCH (20:41)
[2018-02-14] MEDS: DiphenhydrAMINE HCL 25 MG CAPSULE PO SCH (20:41)
[2018-02-14] MEDS: OLANZapine 10 MG TABLET PO SCH (20:41)
[2018-02-15 04:51] VITALS: BP 126/78
[2018-02-15 08:57] VITALS: BP 139/87
[2018-02-15 16:14] VITALS: BP 122/87
[2018-02-15] MEDS: OLANZapine 10 MG TABLET PO SCH (20:38)
[2018-02-15] MEDS: SERTRALINE HCL 100 MG TABLET PO SCH (20:38)
[2018-02-15] MEDS: DiphenhydrAMINE HCL 25 MG CAPSULE PO SCH (20:38)
[2018-02-16 06:43] VITALS: BP 120/81
[2018-02-16 08:28] VITALS: BP 132/67
[2018-02-16 16:07] VITALS: BP 124/85
[2018-02-16] MEDS: DiphenhydrAMINE HCL 25 MG CAPSULE PO SCH (20:40)
[2018-02-16] MEDS: SERTRALINE HCL 100 MG TABLET PO SCH (20:40)
[2018-02-16] MEDS: OLANZapine 10 MG TABLET PO SCH (20:40)
[2018-02-17 05:32] VITALS: BP 130/86
[2018-02-17 08:17] VITALS: BP 140/83
[2018-02-17 16:35] VITALS: BP 135/93
[2018-02-17] MEDS: DIVALPROEX SODIUM 500 MG ER TABLET PO SCH (17:35)
[2018-02-17] MEDS: DiphenhydrAMINE HCL 25 MG CAPSULE PO SCH (20:42)
[2018-02-17] MEDS: OLANZapine 10 MG TABLET PO SCH (20:43)
[2018-02-17] MEDS: SERTRALINE HCL 100 MG TABLET PO SCH (20:43)
[2018-02-18 06:19] VITALS: BP 128/86
[2018-02-18 08:11] VITALS: BP_SYST 133; BP_SYST 140; BP_DIAS 91; BP_DIAS 99
[2018-02-18] MEDS: DIVALPROEX SODIUM 500 MG ER TABLET PO SCH (08:46)
[2018-02-18] MEDS ORDERED: BuPROPion HCL XL 150 MG ER TABLET PO SCH (10:45)
[2018-02-18] MEDS: TOPIRAMATE 25 MG TABLET PO SCH (16:11)
[2018-02-18 17:03] VITALS: BP 129/97
[2018-02-18] MEDS: SERTRALINE HCL 100 MG TABLET PO SCH (20:29)
[2018-02-18] MEDS: OLANZapine 10 MG TABLET PO SCH (20:29)
[2018-02-18] MEDS: DiphenhydrAMINE HCL 25 MG CAPSULE PO SCH (20:29)
[2018-02-19 05:04] VITALS: BP 118/86
[2018-02-19 08:25] VITALS: BP 136/89
[2018-02-19] MEDS: TOPIRAMATE 25 MG TABLET PO SCH ×2 (08:54→16:30)
[2018-02-19 16:12] VITALS: BP 134/85
[2018-02-19] MEDS: OLANZapine 10 MG TABLET PO SCH (19:55)
[2018-02-19] MEDS: SERTRALINE HCL 100 MG TABLET PO SCH (19:55)
[2018-02-19] MEDS: DiphenhydrAMINE HCL 25 MG CAPSULE PO SCH (19:55)
[2018-02-20 07:04] VITALS: BP 133/97
[2018-02-20] MEDS: TOPIRAMATE 25 MG TABLET PO SCH ×2 (08:21→16:23)
[2018-02-20 08:24] LABS: BASOPHILS % (AUTO) 0.6 % (0.0-2.0); EOSINOPHILS % (AUTO) 3.7 % (1.0-6.0); HEMATOCRIT 46.4 % (41-53); HEMOGLOBIN 16.1 g/dL (13.5-17.5); LYMPHOCYTES # (AUTO) 3.5 K/uL (1.0-4.8); LYMPHOCYTES % (AUTO) 30.6 % (22.0-44.0); MEAN CORPUSCULAR HEMOGLOBIN 29.7 pg (26.0-34.0); MEAN CORPUSCULAR HGB CONC 34.6 G/dL (31.0-37.0); MEAN CORPUSCULAR VOLUME 86 fL (80-100); MONOCYTES # (AUTO) 0.8 K/uL (0.1-1.0); NEUTROPHILS # (AUTO) 6.6 K/uL (1.8-7.7); NEUTROPHILS % (AUTO) 58.1 % (40.0-70.0); PLATELET COUNT (AUTO) 324 K/uL (150-450); RED CELL DISTRIBUTION WIDTH 13.6 % (11.5-14.5)
[2018-02-20 08:43] LABS: ALANINE AMINOTRANSFERASE 90 U/L (12-78); ALBUMIN 3.5 g/dL (3.4-5.0); ALKALINE PHOSPHATASE 113 U/L (46-116); ANION GAP 10 mmol/L (8-16); ASPARTATE AMINOTRANSFERASE 43 U/L (15-37); BILIRUBIN,TOTAL 0.3 mg/dL (0.1-1.0); CALCIUM, TOTAL 8.5 mg/dL (8.8-10.5); CARBON DIOXIDE 24 mmol/L (22-29); CHLORIDE 106 mmol/L (98-107); CREATININE 0.95 mg/dL (0.60-1.30); GLOMERULAR FILTR. RATE CALC > 60 mL/min (>60); GLUCOSE,RANDOM 85 mg/dL (70-110); POTASSIUM 3.7 mmol/L (3.5-5.1); SODIUM SERUM 140 mmol/L (136-145); TOTAL PROTEIN, SERUM 7.1 g/dL (6.4-8.2); UREA NITROGEN, BLOOD 17 mg/dL (7-18); VALPROIC ACID 4 mcg/mL (50-100)
[2018-02-20 09:06] VITALS: BP 121/78
[2018-02-20] MEDS: LORazepam 2 MG TABLET PO PRN (14:46)
[2018-02-20 17:58] VITALS: BP 132/86
[2018-02-20] MEDS: OLANZapine 10 MG TABLET PO SCH (20:43)
[2018-02-20] MEDS: SERTRALINE HCL 100 MG TABLET PO SCH (20:43)
[2018-02-20] MEDS: DiphenhydrAMINE HCL 25 MG CAPSULE PO SCH (20:43)
[2018-02-21 06:33] VITALS: BP 124/76
[2018-02-21 08:20] VITALS: BP 114/80
[2018-02-21 08:42] LABS: BASOPHILS % (AUTO) 0.7 % (0.0-2.0); EOSINOPHILS % (AUTO) 3.1 % (1.0-6.0); HEMATOCRIT 47.2 % (41-53); HEMOGLOBIN 16.4 g/dL (13.5-17.5); LYMPHOCYTES # (AUTO) 3.6 K/uL (1.0-4.8); LYMPHOCYTES % (AUTO) 34.1 % (22.0-44.0); MEAN CORPUSCULAR HEMOGLOBIN 30.4 pg (26.0-34.0); MEAN CORPUSCULAR HGB CONC 34.8 G/dL (31.0-37.0); MEAN CORPUSCULAR VOLUME 87 fL (80-100); MONOCYTES # (AUTO) 0.9 K/uL (0.1-1.0); MONOCYTES % (AUTO) 7.9 % (2.0-9.0); NEUTROPHILS # (AUTO) 5.8 K/uL (1.8-7.7); NEUTROPHILS % (AUTO) 54.2 % (40.0-70.0); PLATELET COUNT (AUTO) 332 K/uL (150-450); RED CELL DISTRIBUTION WIDTH 13.7 % (11.5-14.5)
[2018-02-21] MEDS: TOPIRAMATE 25 MG TABLET PO SCH ×2 (09:27→16:26)
[2018-02-21] MEDS: LORazepam 2 MG TABLET PO PRN (12:56)
[2018-02-21 16:00] VITALS: BP 114/61
[2018-02-21] MEDS: SERTRALINE HCL 100 MG TABLET PO SCH (21:18)
[2018-02-21] MEDS: OLANZapine 10 MG TABLET PO SCH (21:18)
[2018-02-21] MEDS: DiphenhydrAMINE HCL 25 MG CAPSULE PO SCH (21:19)
[2018-02-22] VITALS: BP 119/88
[2018-02-22 08:10] VITALS: BP 118/82
[2018-02-22] MEDS: TOPIRAMATE 25 MG TABLET PO SCH ×2 (08:32→16:20)
[2018-02-22 16:25] VITALS: BP 121/90
[2018-02-22] MEDS: OLANZapine 10 MG TABLET PO SCH (20:23)
[2018-02-22] MEDS: DiphenhydrAMINE HCL 25 MG CAPSULE PO SCH (20:23)
[2018-02-22] MEDS: SERTRALINE HCL 100 MG TABLET PO SCH (20:23)
[2018-02-23 03:52] VITALS: BP 129/90
[2018-02-23 08:20] VITALS: BP 132/83
[2018-02-23] MEDS: TOPIRAMATE 25 MG TABLET PO SCH ×2 (08:37→16:11)
[2018-02-23 17:46] VITALS: BP 118/60
[2018-02-23] MEDS: SERTRALINE HCL 100 MG TABLET PO SCH (20:35)
[2018-02-23] MEDS: DiphenhydrAMINE HCL 25 MG CAPSULE PO SCH (20:35)
[2018-02-23] MEDS: OLANZapine 10 MG TABLET PO SCH (20:35)
[2018-02-24 03:50] VITALS: BP 120/86
[2018-02-24 08:26] VITALS: BP 121/82
[2018-02-24] MEDS: TOPIRAMATE 25 MG TABLET PO SCH ×2 (08:43→16:25)
[2018-02-24] MEDS: LORazepam 2 MG TABLET PO PRN (16:25)
[2018-02-24 16:31] VITALS: BP 113/80
[2018-02-24] MEDS: OLANZapine 10 MG TABLET PO SCH (20:34)
[2018-02-24] MEDS: DiphenhydrAMINE HCL 25 MG CAPSULE PO SCH (20:34)
[2018-02-24] MEDS: SERTRALINE HCL 100 MG TABLET PO SCH (20:34)
[2018-02-25 00:23] VITALS: BP 125/92
[2018-02-25 08:00] VITALS: BP 140/88
[2018-02-25] MEDS: TOPIRAMATE 25 MG TABLET PO SCH ×2 (08:50→16:45)
[2018-02-25] MEDS: LORazepam 2 MG TABLET PO PRN (12:02)
[2018-02-25 16:34] VITALS: BP 111/87
[2018-02-25] MEDS: OLANZapine 10 MG TABLET PO SCH (20:27)
[2018-02-25] MEDS: SERTRALINE HCL 100 MG TABLET PO SCH (20:27)
[2018-02-25] MEDS: DiphenhydrAMINE HCL 25 MG CAPSULE PO SCH (20:27)
[2018-02-26 02:56] VITALS: BP 124/93
[2018-02-26 08:16] VITALS: BP 126/72
[2018-02-26] MEDS: TOPIRAMATE 25 MG TABLET PO SCH ×2 (09:05→16:28)
[2018-02-26] MEDS: LORazepam 2 MG TABLET PO PRN ×2 (11:17→16:28)
[2018-02-26 17:04] VITALS: BP 137/95
[2018-02-26] MEDS: DiphenhydrAMINE HCL 25 MG CAPSULE PO SCH (20:22)
[2018-02-26] MEDS: OLANZapine 10 MG TABLET PO SCH (20:22)
[2018-02-26] MEDS: SERTRALINE HCL 100 MG TABLET PO SCH (20:22)
[2018-02-26] MEDS: ZOLPIDEM TARTRATE 10 MG TABLET PO PRN (22:11)
[2018-02-27 01:37] VITALS: BP 118/62
[2018-02-27] MEDS: TOPIRAMATE 25 MG TABLET PO SCH ×2 (08:27→16:35)
[2018-02-27 08:32] VITALS: BP 116/84
[2018-02-27] MEDS: LORazepam 2 MG TABLET PO PRN ×2 (10:59→15:57)
[2018-02-27 16:18] VITALS: BP 121/74
[2018-02-27] MEDS: DiphenhydrAMINE HCL 25 MG CAPSULE PO SCH (20:30)
[2018-02-27] MEDS: SERTRALINE HCL 100 MG TABLET PO SCH (20:30)
[2018-02-27] MEDS: OLANZapine 10 MG TABLET PO SCH (20:30)
[2018-02-27] MEDS: ZOLPIDEM TARTRATE 10 MG TABLET PO PRN (23:51)
[2018-02-28 00:05] VITALS: BP 128/78
[2018-02-28] MEDS: LORazepam 2 MG TABLET PO PRN ×2 (00:32→09:45)
[2018-02-28 08:15] VITALS: BP 124/84
[2018-02-28] MEDS: TOPIRAMATE 25 MG TABLET PO SCH (08:28)
[2018-02-28] MEDS ORDERED: SERT100T12 PO (11:32)
[2018-02-28] MEDS ORDERED: DIPH50 PO (11:32)
[2018-02-28] MEDS ORDERED: TOPI25 PO (11:32)
== END 2018-02-28 12:30 | disposition home or self-care (01) | DRG 885 ==
LOC: B2X 17:46
PROVIDERS: ADMIT Psychiatry & Neurology Psychiatry; ATTEND Psychiatry & Neurology Psychiatry
DX: F20.0 Paranoid schizophrenia (principal); Z28.21 Immunization not carried out because of patient refusal; D72.829 Elevated white blood cell count, unspecified; E78.5 Hyperlipidemia, unspecified; F10.10 Alcohol abuse, uncomplicated; F12.90 Cannabis use, unspecified, uncomplicated; G47.33 Obstructive sleep apnea (adult) (pediatric); I10 Essential (primary) hypertension; K21.9 Gastro-esophageal reflux disease without esophagitis; Z91.19 Patient's noncompliance with other medical treatment and regimen; E05.90 Thyrotoxicosis, unspecified without thyrotoxic crisis or storm; F19.10 Other psychoactive substance abuse, uncomplicated; Z71.41 Alcohol abuse counseling and surveillance of alcoholic; Z71.51 Drug abuse counseling and surveillance of drug abuser; F41.9 Anxiety disorder, unspecified
CPT/HCPCS: 83036; 84439; 84443

== ENCOUNTER 2018-03-20 22:58 | Emergency (ER) | payer MEDICARE, MEDICAID ==
[~2018-03-20] VITALS: Ht 170.2 cm; Wt 107.7 kg
[~2018-03-20 22:58] MED LIST changes: +DIPH50 PO; +TOPI25 PO
[2018-03-20 23:34] LABS: APPEARANCE,URINE CLEAR (CLEAR); BILIRUBIN,URINE NEGATIVE (NEGATIVE); GLUCOSE, URINE (UA) NEGATIVE (NEGATIVE); KETONES,URINE NEGATIVE (NEGATIVE); LEUKOCYTE ESTERASE ,URINE NEGATIVE (NEGATIVE); NITRATE,URINE NEGATIVE (NEGATIVE); OCCULT BLOOD,URINE NEGATIVE (NEGATIVE); PROTEIN,URINE NEGATIVE (NEGATIVE); UROBILINOGEN,URINE 0.2 mg/dL (<=1.0)
[2018-03-20 23:39] LABS: AMPHET/METH SCREEN,URINE NEGATIVE (NEGATIVE); BARBITURATE SCREEN, URINE NEGATIVE (NEGATIVE); BENZODIAZEPINES SCREEN,URINE NEGATIVE (NEGATIVE); CANNABINOID SCREEN,URINE NEGATIVE (NEGATIVE); COCAINE SCREEN,URINE NEGATIVE (NEGATIVE); METHADONE SCREEN, URINE NEGATIVE (NEGATIVE); OPIATE SCREEN,URINE NEGATIVE (NEGATIVE); PHENCYCLIDINE SCREEN,URINE NEGATIVE (NEGATIVE)
[2018-03-21] MEDS ORDERED: ALPRAZolam 1 MG TABLET PO ONE (00:15)
[2018-03-21 00:40] LABS: BASOPHILS % (AUTO) 0.9 % (0.0-2.0); EOSINOPHILS % (AUTO) 0.4 % (1.0-6.0); HEMATOCRIT 45.4 % (41-53); HEMOGLOBIN 15.4 g/dL (13.5-17.5); LYMPHOCYTES # (AUTO) 2.5 K/uL (1.0-4.8); LYMPHOCYTES % (AUTO) 24.6 % (22.0-44.0); MEAN CORPUSCULAR HEMOGLOBIN 29.5 pg (26.0-34.0); MEAN CORPUSCULAR HGB CONC 33.9 G/dL (31.0-37.0); MEAN CORPUSCULAR VOLUME 87 fL (80-100); MONOCYTES # (AUTO) 0.9 K/uL (0.1-1.0); MONOCYTES % (AUTO) 8.8 % (2.0-9.0); NEUTROPHILS # (AUTO) 6.6 K/uL (1.8-7.7); NEUTROPHILS % (AUTO) 65.3 % (40.0-70.0); PLATELET COUNT (AUTO) 344 K/uL (150-450); RED BLOOD CELL COUNT(AUTO) 5.23 MIL/uL (4.50-5.90); RED CELL DISTRIBUTION WIDTH 13.8 % (11.5-14.5)
[2018-03-21 00:49] LABS: ANION GAP 13 mmol/L (8-16); CALCIUM, TOTAL 9.1 mg/dL (8.8-10.5); CARBON DIOXIDE 23 mmol/L (22-29); CHLORIDE 105 mmol/L (98-107); CREATININE 0.98 mg/dL (0.60-1.30); GLOMERULAR FILTR. RATE CALC > 60 mL/min (>60); GLUCOSE,RANDOM 135 mg/dL (70-110); SODIUM SERUM 141 mmol/L (136-145); UREA NITROGEN, BLOOD 9 mg/dL (7-18)
[2018-03-21 00:55] LABS: ALANINE AMINOTRANSFERASE 48 U/L (12-78); ALBUMIN 3.8 g/dL (3.4-5.0); ALKALINE PHOSPHATASE 94 U/L (46-116); ASPARTATE AMINOTRANSFERASE 26 U/L (15-37); BILIRUBIN,TOTAL 0.2 mg/dL (0.1-1.0); TOTAL PROTEIN, SERUM 7.6 g/dL (6.4-8.2)
[2018-03-21 01:00] VITALS: BP 130/80
== END 2018-03-21 01:33 | disposition home or self-care (01) ==
LOC: EMS 22:59
DX: F41.9 Anxiety disorder, unspecified (principal); R00.0 Tachycardia, unspecified; F20.9 Schizophrenia, unspecified; F29 Unspecified psychosis not due to a substance or known physiological condition
CPT/HCPCS: 36415; 80053; 80307; 81003; 84484; 85025; 93005; 99284; G0480

== ENCOUNTER 2018-05-04 21:49 | Inpatient (IN) | payer MEDICAID, MEDICARE ==
[~2018-05-04] VITALS: Ht 170.2 cm; Wt 104.8 kg
[2018-05-04 22:43] VITALS: BP 136/85
[2018-05-05 00:20] VITALS: BP 115/81
[2018-05-05] MEDS: ZOLPIDEM TARTRATE 10 MG TABLET PO PRN (00:33)
[2018-05-05] MEDS: LORazepam 2 MG TABLET PO PRN ×4 (00:33→17:28)
[2018-05-05 05:30] VITALS: BP 120/70
[2018-05-05] MEDS ORDERED: ONDANSETRON HCL 4 MG TABLET PO PRN (07:45)
[2018-05-05] MEDS ORDERED: NICOTINE 14 MG/24 HOUR PATCH TD PRN (07:45)
[2018-05-05] MEDS ORDERED: CloNIDine HCL 0.1 MG TABLET PO PRN (07:45)
[2018-05-05] MEDS ORDERED: MAG HYDROX/AL HYDROX/SIMETH ES 30 ML SUSPENSION UDCUP PO PRN (07:45)
[2018-05-05] MEDS ORDERED: MAGNESIUM HYDROXIDE SUSPENSION 30 ML UDCUP PO PRN (07:45)
[2018-05-05] MEDS ORDERED: ACETAMINOPHEN 325 MG TABLET PO PRN (07:45)
[2018-05-05] MEDS ORDERED: ALBUTEROL SULFATE HFA 90 MCG/PUFF 8 GM INHALER IH PRN (07:45)
[2018-05-05] MEDS ORDERED: GuaiFENesin/D-METHORPHAN [SUGAR-FREE] 200-20MG/10 ML SYRUP UDCUP PO PRN (07:45)
[2018-05-05] MEDS ORDERED: DOCUSATE SODIUM 100 MG CAPSULE PO PRN (07:45)
[2018-05-05] MEDS ORDERED: IBUPROFEN 400 MG TABLET PO PRN (07:45)
[2018-05-05] MEDS ORDERED: LOPERAMIDE HCL 2 MG CAPSULE PO PRN (07:45)
[2018-05-05] MEDS ORDERED: PETROLATUM,WHITE 71 GM JELLY TP PRN (07:45)
[2018-05-05 08:24] LABS: BASOPHILS % (AUTO) 0.3 % (0.0-2.0); EOSINOPHILS % (AUTO) 0.7 % (1.0-6.0); HEMATOCRIT 47.9 % (41-53); HEMOGLOBIN 16.4 g/dL (13.5-17.5); LYMPHOCYTES # (AUTO) 2.1 K/uL (1.0-4.8); LYMPHOCYTES % (AUTO) 21.3 % (22.0-44.0); MEAN CORPUSCULAR HEMOGLOBIN 29.5 pg (26.0-34.0); MEAN CORPUSCULAR HGB CONC 34.3 G/dL (31.0-37.0); MEAN CORPUSCULAR VOLUME 86 fL (80-100); MONOCYTES # (AUTO) 0.7 K/uL (0.1-1.0); MONOCYTES % (AUTO) 6.8 % (2.0-9.0); NEUTROPHILS # (AUTO) 6.9 K/uL (1.8-7.7); NEUTROPHILS % (AUTO) 70.9 % (40.0-70.0); PLATELET COUNT (AUTO) 291 K/uL (150-450); RED BLOOD CELL COUNT(AUTO) 5.57 MIL/uL (4.50-5.90); RED CELL DISTRIBUTION WIDTH 13.8 % (11.5-14.5)
[2018-05-05 08:26] VITALS: BP 122/78
[2018-05-05 09:01] LABS: HEMOGLOBIN A1C 5.5 % (4.5-6.2)
[2018-05-05 09:25] LABS: ALANINE AMINOTRANSFERASE 43 U/L (12-78); ALBUMIN 3.6 g/dL (3.4-5.0); ALKALINE PHOSPHATASE 60 U/L (46-116); ANION GAP 11 mmol/L (8-16); ASPARTATE AMINOTRANSFERASE 29 U/L (15-37); BILIRUBIN,TOTAL 0.4 mg/dL (0.1-1.0); CALCIUM, TOTAL 8.8 mg/dL (8.8-10.5); CARBON DIOXIDE 24 mmol/L (22-29); CHLORIDE 103 mmol/L (98-107); CHOL/HDL RATIO 5.8 (4.2-7.3); CHOLESTEROL 175 mg/dL (131-200); CREATININE 0.75 mg/dL (0.60-1.30); FREE T4 (FREE THYROXINE) 1.35 ng/dL (0.76-1.46); GLOMERULAR FILTR. RATE CALC > 60 mL/min (>60); GLUCOSE,RANDOM 92 mg/dL (70-110); HDL CHOLESTEROL 30 mg/dL (40-60); LDL CHOL (CALC.) 116 mg/dL (0-130); POTASSIUM 3.6 mmol/L (3.5-5.1); SODIUM SERUM 138 mmol/L (136-145); THYROID STIMULATING HORMONE 0.68 uIU/mL (0.36-3.74); TOTAL PROTEIN, SERUM 6.7 g/dL (6.4-8.2); TRIGLYCERIDES 145 mg/dL (15-150); UREA NITROGEN, BLOOD 9 mg/dL (7-18)
[2018-05-05] MEDS: BuPROPion HCL XL 150 MG ER TABLET PO SCH (10:00)
[2018-05-05] MEDS: DIVALPROEX SODIUM 500 MG ER TABLET PO SCH ×4 (10:00→17:00)
[2018-05-05] MEDS: TOPIRAMATE 25 MG TABLET PO SCH ×2 (10:07→16:47)
[2018-05-05 17:45] VITALS: BP 116/66
[2018-05-05] MEDS: OLANZapine 10 MG TABLET PO SCH (21:30)
[2018-05-05] MEDS: DiphenhydrAMINE HCL 25 MG CAPSULE PO SCH (21:30)
[2018-05-05] MEDS: SERTRALINE HCL 100 MG TABLET PO SCH (21:30)
[2018-05-06 06:22] VITALS: BP 118/68
[2018-05-06] MEDS: BuPROPion HCL XL 150 MG ER TABLET PO SCH ×2 (08:15→08:58)
[2018-05-06] MEDS: DIVALPROEX SODIUM 500 MG ER TABLET PO SCH ×4 (08:15→17:00)
[2018-05-06] MEDS: TOPIRAMATE 25 MG TABLET PO SCH ×2 (08:16→16:19)
[2018-05-06 08:20] VITALS: BP 137/72
[2018-05-06 08:53] LABS: BASOPHILS % (AUTO) 0.7 % (0.0-2.0); EOSINOPHILS % (AUTO) 1.3 % (1.0-6.0); HEMATOCRIT 49.8 % (41-53); HEMOGLOBIN 16.9 g/dL (13.5-17.5); LYMPHOCYTES # (AUTO) 2.9 K/uL (1.0-4.8); LYMPHOCYTES % (AUTO) 29.8 % (22.0-44.0); MEAN CORPUSCULAR HEMOGLOBIN 29.4 pg (26.0-34.0); MEAN CORPUSCULAR HGB CONC 33.9 G/dL (31.0-37.0); MEAN CORPUSCULAR VOLUME 87 fL (80-100); MONOCYTES # (AUTO) 0.6 K/uL (0.1-1.0); NEUTROPHILS # (AUTO) 6.1 K/uL (1.8-7.7); NEUTROPHILS % (AUTO) 62.2 % (40.0-70.0); PLATELET COUNT (AUTO) 280 K/uL (150-450); RED BLOOD CELL COUNT(AUTO) 5.73 MIL/uL (4.50-5.90); RED CELL DISTRIBUTION WIDTH 13.9 % (11.5-14.5)
[2018-05-06 09:08] LABS: HEMOGLOBIN A1C 5.2 % (4.5-6.2)
[2018-05-06 09:47] LABS: ALANINE AMINOTRANSFERASE 42 U/L (12-78); ALBUMIN 3.6 g/dL (3.4-5.0); ALKALINE PHOSPHATASE 61 U/L (46-116); ANION GAP 10 mmol/L (8-16); ASPARTATE AMINOTRANSFERASE 24 U/L (15-37); BILIRUBIN,TOTAL 0.5 mg/dL (0.1-1.0); CALCIUM, TOTAL 8.9 mg/dL (8.8-10.5); CARBON DIOXIDE 23 mmol/L (22-29); CHLORIDE 105 mmol/L (98-107); CHOL/HDL RATIO 5.6 (4.2-7.3); CHOLESTEROL 178 mg/dL (131-200); CREATININE 0.93 mg/dL (0.60-1.30); GLOMERULAR FILTR. RATE CALC > 60 mL/min (>60); GLUCOSE,RANDOM 81 mg/dL (70-110); HDL CHOLESTEROL 32 mg/dL (40-60); LDL CHOL (CALC.) 121 mg/dL (0-130); POTASSIUM 4.4 mmol/L (3.5-5.1); SODIUM SERUM 138 mmol/L (136-145); THYROID STIMULATING HORMONE 0.23 uIU/mL (0.36-3.74); TOTAL PROTEIN, SERUM 6.5 g/dL (6.4-8.2); TRIGLYCERIDES 123 mg/dL (15-150); UREA NITROGEN, BLOOD 12 mg/dL (7-18)
[2018-05-06] MEDS: LORazepam 2 MG TABLET PO PRN ×2 (10:06→20:58)
[2018-05-06 16:07] VITALS: BP 113/66
[2018-05-06] MEDS: DiphenhydrAMINE HCL 25 MG CAPSULE PO SCH ×2 (20:02→21:00)
[2018-05-06] MEDS: OLANZapine 10 MG TABLET PO SCH ×2 (20:02→21:00)
[2018-05-06] MEDS: SERTRALINE HCL 100 MG TABLET PO SCH ×2 (20:03→21:00)
[2018-05-06] MEDS: ZOLPIDEM TARTRATE 10 MG TABLET PO PRN (20:42)
[2018-05-07 00:55] VITALS: BP 119/74
[2018-05-07] MEDS: LORazepam 2 MG TABLET PO PRN ×3 (08:30→17:09)
[2018-05-07] MEDS: DIVALPROEX SODIUM 500 MG ER TABLET PO SCH ×2 (08:41→16:10)
[2018-05-07] MEDS: TOPIRAMATE 25 MG TABLET PO SCH ×2 (08:42→16:09)
[2018-05-07] MEDS: BuPROPion HCL XL 150 MG ER TABLET PO SCH (08:42)
[2018-05-07 09:10] VITALS: BP 125/72
[2018-05-07 16:45] VITALS: BP 122/91
[2018-05-07] MEDS: DiphenhydrAMINE HCL 25 MG CAPSULE PO SCH (20:05)
[2018-05-07] MEDS: OLANZapine 10 MG TABLET PO SCH (20:05)
[2018-05-07] MEDS: SERTRALINE HCL 100 MG TABLET PO SCH (20:05)
[2018-05-08 00:51] VITALS: BP 118/70
[2018-05-08] MEDS: TOPIRAMATE 25 MG TABLET PO SCH ×2 (08:08→16:18)
[2018-05-08] MEDS: DIVALPROEX SODIUM 500 MG ER TABLET PO SCH ×2 (08:08→16:18)
[2018-05-08 08:34] VITALS: BP 121/69
[2018-05-08] MEDS: BuPROPion HCL XL 150 MG ER TABLET PO SCH (09:00)
[2018-05-08] MEDS: LORazepam 2 MG TABLET PO PRN ×2 (13:02→17:27)
[2018-05-08 16:07] VITALS: BP 120/80
[2018-05-08] MEDS: OLANZapine 10 MG TABLET PO SCH (20:13)
[2018-05-08] MEDS: DiphenhydrAMINE HCL 25 MG CAPSULE PO SCH (20:13)
[2018-05-08] MEDS: SERTRALINE HCL 100 MG TABLET PO SCH (20:13)
[2018-05-09 01:25] VITALS: BP 118/78
[2018-05-09 08:42] VITALS: BP 124/81
[2018-05-09] MEDS: BuPROPion HCL XL 150 MG ER TABLET PO SCH (09:22)
[2018-05-09] MEDS: TOPIRAMATE 25 MG TABLET PO SCH ×3 (09:22→17:00)
[2018-05-09] MEDS: DIVALPROEX SODIUM 500 MG ER TABLET PO SCH ×3 (09:23→17:00)
[2018-05-09] MEDS: LORazepam 2 MG TABLET PO PRN ×2 (12:51→17:37)
[2018-05-09 16:51] VITALS: BP 147/90
[2018-05-09] MEDS: DiphenhydrAMINE HCL 25 MG CAPSULE PO SCH (20:56)
[2018-05-09] MEDS: OLANZapine 10 MG TABLET PO SCH (20:57)
[2018-05-09] MEDS: SERTRALINE HCL 100 MG TABLET PO SCH (20:57)
[2018-05-10 01:39] VITALS: BP 120/68
[2018-05-10] MEDS: LORazepam 2 MG TABLET PO PRN ×2 (08:17→13:18)
[2018-05-10] MEDS: TOPIRAMATE 25 MG TABLET PO SCH ×3 (08:17→16:48)
[2018-05-10 08:18] VITALS: BP 124/90
[2018-05-10] MEDS: BuPROPion HCL XL 150 MG ER TABLET PO SCH (08:21)
[2018-05-10] MEDS: DIVALPROEX SODIUM 500 MG ER TABLET PO SCH ×3 (08:21→16:48)
[2018-05-10 16:10] VITALS: BP 113/65
[2018-05-10] MEDS: DiphenhydrAMINE HCL 25 MG CAPSULE PO SCH (20:30)
[2018-05-10] MEDS: OLANZapine 10 MG TABLET PO SCH (20:30)
[2018-05-10] MEDS: SERTRALINE HCL 100 MG TABLET PO SCH (20:30)
[2018-05-11 00:47] VITALS: BP 105/65
[2018-05-11 08:19] VITALS: BP 118/68
[2018-05-11] MEDS: DIVALPROEX SODIUM 500 MG ER TABLET PO SCH ×2 (08:21→16:14)
[2018-05-11] MEDS: TOPIRAMATE 25 MG TABLET PO SCH ×2 (08:21→16:14)
[2018-05-11] MEDS: BuPROPion HCL XL 150 MG ER TABLET PO SCH (08:31)
[2018-05-11] MEDS: LORazepam 2 MG TABLET PO PRN ×2 (11:17→17:10)
[2018-05-11 16:42] VITALS: BP 107/60
[2018-05-11] MEDS: OLANZapine 10 MG TABLET PO SCH (20:18)
[2018-05-11] MEDS: DiphenhydrAMINE HCL 25 MG CAPSULE PO SCH (20:18)
[2018-05-11] MEDS: SERTRALINE HCL 100 MG TABLET PO SCH (20:18)
[2018-05-12 00:57] VITALS: BP 118/73
[2018-05-12 08:22] VITALS: BP 123/88
[2018-05-12] MEDS: DIVALPROEX SODIUM 500 MG ER TABLET PO SCH ×2 (08:25→16:58)
[2018-05-12] MEDS: BuPROPion HCL XL 150 MG ER TABLET PO SCH (08:25)
[2018-05-12] MEDS: TOPIRAMATE 25 MG TABLET PO SCH ×2 (08:25→16:58)
[2018-05-12] MEDS: LORazepam 2 MG TABLET PO PRN ×2 (10:09→16:58)
[2018-05-12 16:21] VITALS: BP_SYST 88
[2018-05-12] MEDS: OLANZapine 10 MG TABLET PO SCH (20:22)
[2018-05-12] MEDS: ZOLPIDEM TARTRATE 10 MG TABLET PO PRN (20:22)
[2018-05-12] MEDS: SERTRALINE HCL 100 MG TABLET PO SCH (20:22)
[2018-05-12] MEDS: DiphenhydrAMINE HCL 25 MG CAPSULE PO SCH (20:22)
[2018-05-13 00:20] VITALS: BP 121/75
[2018-05-13] MEDS: BuPROPion HCL XL 150 MG ER TABLET PO SCH (08:03)
[2018-05-13] MEDS: DIVALPROEX SODIUM 500 MG ER TABLET PO SCH ×2 (08:03→16:35)
[2018-05-13] MEDS: TOPIRAMATE 25 MG TABLET PO SCH ×2 (08:03→16:35)
[2018-05-13 08:20] VITALS: BP 121/72
[2018-05-13] MEDS: LORazepam 2 MG TABLET PO PRN ×2 (11:28→16:07)
[2018-05-13 16:21] VITALS: BP 120/78
[2018-05-13] MEDS: DiphenhydrAMINE HCL 25 MG CAPSULE PO SCH (20:04)
[2018-05-13] MEDS: SERTRALINE HCL 100 MG TABLET PO SCH (20:05)
[2018-05-13] MEDS: OLANZapine 10 MG TABLET PO SCH (20:06)
[2018-05-14 01:22] VITALS: BP 111/76
[2018-05-14 08:11] VITALS: BP 116/87
[2018-05-14] MEDS: TOPIRAMATE 25 MG TABLET PO SCH ×2 (09:03→16:09)
[2018-05-14] MEDS: DIVALPROEX SODIUM 500 MG ER TABLET PO SCH ×2 (09:03→16:09)
[2018-05-14] MEDS: BuPROPion HCL XL 150 MG ER TABLET PO SCH (09:03)
[2018-05-14] MEDS: LORazepam 2 MG TABLET PO PRN ×3 (11:06→21:54)
[2018-05-14 16:10] VITALS: BP 117/86
[2018-05-14] MEDS: SERTRALINE HCL 100 MG TABLET PO SCH (20:11)
[2018-05-14] MEDS: DiphenhydrAMINE HCL 25 MG CAPSULE PO SCH (20:11)
[2018-05-14] MEDS: OLANZapine 10 MG TABLET PO SCH (20:12)
[2018-05-14] MEDS: ZOLPIDEM TARTRATE 10 MG TABLET PO PRN (20:19)
[2018-05-15 00:42] VITALS: BP 112/70
[2018-05-15 08:30] VITALS: BP 110/61
[2018-05-15] MEDS: TOPIRAMATE 25 MG TABLET PO SCH (09:01)
[2018-05-15] MEDS: DIVALPROEX SODIUM 500 MG ER TABLET PO SCH (09:01)
[2018-05-15] MEDS: BuPROPion HCL XL 150 MG ER TABLET PO SCH (09:01)
[2018-05-15] MEDS: LORazepam 2 MG TABLET PO PRN (10:15)
[2018-05-15] MEDS ORDERED: DIVA250T4 PO (11:00)
[2018-05-15] MEDS ORDERED: OLAN10TA3 PO (11:00)
[2018-05-15] MEDS ORDERED: BUPR-93 PO (11:00)
[2018-05-15] MEDS ORDERED: SERT100T12 PO (11:00)
[2018-05-15] MEDS ORDERED: TOPI25 PO (11:00)
[2018-05-15] MEDS ORDERED: DIPH50 PO (11:02)
== END 2018-05-15 13:30 | disposition home or self-care (01) | DRG 885 ==
LOC: B2S 22:39 → EDSTATUS 23:00 → B2S 05-05 08:58
PROVIDERS: ADMIT Psychiatry & Neurology Child & Adolescent Psychiatry; ATTEND Psychiatry & Neurology Child & Adolescent Psychiatry
DX: F20.0 Paranoid schizophrenia (principal); F10.10 Alcohol abuse, uncomplicated; K59.00 Constipation, unspecified
CPT/HCPCS: 83036; 84439; 84443

== ENCOUNTER 2018-05-20 12:36 | Inpatient (IN) | payer MEDICARE ==
[~2018-05-20] VITALS: Ht 172.7 cm; Wt 103.4 kg
[~2018-05-20 12:36] MED LIST changes: +BUPR-93 PO; +DIVA250T4 PO
[2018-05-20 14:40] VITALS: BP 128/91
[2018-05-20] MEDS ORDERED: DIVA-78 PO (15:17)
[2018-05-20 17:11] VITALS: BP 132/90
[2018-05-20] MEDS: LORazepam 2 MG TABLET PO PRN (19:13)
[2018-05-20] MEDS: ZOLPIDEM TARTRATE 10 MG TABLET PO PRN (20:52)
[2018-05-20] MEDS: HALOPERIDOL 5 MG TABLET PO PRN (21:38)
[2018-05-20] MEDS ORDERED: PETROLATUM,WHITE 28 GM JELLY TP PRN (21:45)
[2018-05-20] MEDS ORDERED: MAGNESIUM HYDROXIDE SUSPENSION 30 ML UDCUP PO PRN (21:45)
[2018-05-20] MEDS ORDERED: CloNIDine HCL 0.1 MG TABLET PO PRN (21:45)
[2018-05-20] MEDS ORDERED: NICOTINE 14 MG/24 HOUR PATCH TD PRN (21:45)
[2018-05-20] MEDS ORDERED: LOPERAMIDE HCL 2 MG CAPSULE PO PRN (21:45)
[2018-05-20] MEDS ORDERED: ACETAMINOPHEN 325 MG TABLET PO PRN (21:45)
[2018-05-20] MEDS ORDERED: ONDANSETRON HCL 4 MG TABLET PO PRN (21:45)
[2018-05-20] MEDS ORDERED: GuaiFENesin/D-METHORPHAN [SUGAR-FREE] 200-20MG/10 ML SYRUP UDCUP PO PRN (21:45)
[2018-05-20] MEDS ORDERED: MAG HYDROX/AL HYDROX/SIMETH ES 30 ML SUSPENSION UDCUP PO PRN (21:45)
[2018-05-20] MEDS ORDERED: DOCUSATE SODIUM 100 MG CAPSULE PO PRN (21:45)
[2018-05-20] MEDS ORDERED: ALBUTEROL SULFATE HFA 90 MCG/PUFF 8 GM INHALER IH PRN (21:45)
[2018-05-21 07:16] VITALS: BP 140/89
[2018-05-21 08:25] VITALS: BP 122/68
[2018-05-21 08:27] LABS: BASOPHILS % (AUTO) 0.6 % (0.0-2.0); EOSINOPHILS % (AUTO) 0.1 % (1.0-6.0); HEMATOCRIT 49.7 % (41-53); HEMOGLOBIN 16.6 g/dL (13.5-17.5); LYMPHOCYTES # (AUTO) 2.8 K/uL (1.0-4.8); LYMPHOCYTES % (AUTO) 26.3 % (22.0-44.0); MEAN CORPUSCULAR HGB CONC 33.4 G/dL (31.0-37.0); MEAN CORPUSCULAR VOLUME 87 fL (80-100); MONOCYTES # (AUTO) 1.1 K/uL (0.1-1.0); MONOCYTES % (AUTO) 10.6 % (2.0-9.0); NEUTROPHILS # (AUTO) 6.7 K/uL (1.8-7.7); NEUTROPHILS % (AUTO) 62.4 % (40.0-70.0); PLATELET COUNT (AUTO) 297 K/uL (150-450); RED BLOOD CELL COUNT(AUTO) 5.71 MIL/uL (4.50-5.90); RED CELL DISTRIBUTION WIDTH 13.9 % (11.5-14.5)
[2018-05-21 08:53] LABS: ALANINE AMINOTRANSFERASE 56 U/L (12-78); ALKALINE PHOSPHATASE 79 U/L (46-116); ANION GAP 11 mmol/L (8-16); ASPARTATE AMINOTRANSFERASE 27 U/L (15-37); BILIRUBIN,TOTAL 0.7 mg/dL (0.1-1.0); CALCIUM, TOTAL 9.3 mg/dL (8.8-10.5); CARBON DIOXIDE 25 mmol/L (22-29); CHLORIDE 104 mmol/L (98-107); CHOLESTEROL 209 mg/dL (131-200); CREATININE 0.83 mg/dL (0.60-1.30); FREE T4 (FREE THYROXINE) 1.16 ng/dL (0.76-1.46); GLOMERULAR FILTR. RATE CALC > 60 mL/min (>60); GLUCOSE,RANDOM 94 mg/dL (70-110); HDL CHOLESTEROL 26 mg/dL (40-60); LDL CHOL (CALC.) 151 mg/dL (0-130); POTASSIUM 4.1 mmol/L (3.5-5.1); SODIUM SERUM 140 mmol/L (136-145); THYROID STIMULATING HORMONE 0.71 uIU/mL (0.36-3.74); TOTAL PROTEIN, SERUM 7.2 g/dL (6.4-8.2); TRIGLYCERIDES 160 mg/dL (15-150); UREA NITROGEN, BLOOD 15 mg/dL (7-18)
[2018-05-21 09:18] LABS: HEMOGLOBIN A1C 5.6 % (4.5-6.2)
[2018-05-21] MEDS: DIVALPROEX SODIUM 500 MG DR TABLET PO SCH ×2 (10:47→16:33)
[2018-05-21] MEDS: BuPROPion HCL XL 150 MG ER TABLET PO SCH (10:47)
[2018-05-21] MEDS: LORazepam 2 MG TABLET PO PRN (13:09)
[2018-05-21 16:19] VITALS: BP 140/77
[2018-05-21] MEDS: OLANZapine 10 MG TABLET PO SCH (20:46)
[2018-05-21] MEDS: ZOLPIDEM TARTRATE 10 MG TABLET PO PRN (20:54)
[2018-05-22 04:35] VITALS: BP 107/80
[2018-05-22] MEDS: IBUPROFEN 400 MG TABLET PO PRN (04:48)
[2018-05-22 08:19] VITALS: BP 140/74
[2018-05-22] MEDS: DIVALPROEX SODIUM 500 MG DR TABLET PO SCH ×2 (08:40→16:37)
[2018-05-22] MEDS: BuPROPion HCL XL 150 MG ER TABLET PO SCH (08:40)
[2018-05-22] MEDS: LORazepam 2 MG TABLET PO PRN ×2 (11:53→16:24)
[2018-05-22 16:46] VITALS: BP 140/81
[2018-05-22] MEDS: OLANZapine 10 MG TABLET PO SCH (20:38)
[2018-05-22] MEDS: ZOLPIDEM TARTRATE 10 MG TABLET PO PRN (20:52)
[2018-05-23 02:53] VITALS: BP 134/84
[2018-05-23] MEDS: LORazepam 2 MG TABLET PO PRN ×3 (06:43→16:17)
[2018-05-23 08:16] VITALS: BP 120/66
[2018-05-23] MEDS: BuPROPion HCL XL 150 MG ER TABLET PO SCH (08:39)
[2018-05-23] MEDS: DIVALPROEX SODIUM 500 MG DR TABLET PO SCH ×2 (08:40→16:34)
[2018-05-23] MEDS: HALOPERIDOL 5 MG TABLET PO PRN (12:32)
[2018-05-23 16:55] VITALS: BP 142/95
[2018-05-23] MEDS: OLANZapine 10 MG TABLET PO SCH (20:35)
[2018-05-23] MEDS: ZOLPIDEM TARTRATE 10 MG TABLET PO PRN (21:04)
[2018-05-24 00:16] VITALS: BP 132/82
[2018-05-24] MEDS: LORazepam 2 MG TABLET PO PRN ×4 (07:00→22:52)
[2018-05-24 08:17] VITALS: BP 126/82
[2018-05-24] MEDS: DIVALPROEX SODIUM 500 MG DR TABLET PO SCH ×2 (08:35→16:47)
[2018-05-24] MEDS: BuPROPion HCL XL 150 MG ER TABLET PO SCH (08:35)
[2018-05-24 16:18] VITALS: BP 140/80
[2018-05-24] MEDS: OLANZapine 10 MG TABLET PO SCH (20:37)
[2018-05-24] MEDS: ZOLPIDEM TARTRATE 10 MG TABLET PO PRN (20:54)
[2018-05-25 01:33] VITALS: BP 144/68
[2018-05-25 08:29] VITALS: BP 108/66
[2018-05-25] MEDS: BuPROPion HCL XL 150 MG ER TABLET PO SCH (08:45)
[2018-05-25] MEDS: DIVALPROEX SODIUM 500 MG DR TABLET PO SCH ×2 (08:45→16:26)
[2018-05-25] MEDS: LORazepam 2 MG TABLET PO PRN ×3 (10:51→20:15)
[2018-05-25 16:09] VITALS: BP 123/72
[2018-05-25] MEDS: OLANZapine 10 MG TABLET PO SCH (20:15)
[2018-05-26 01:23] VITALS: BP 120/73
[2018-05-26] MEDS: DIVALPROEX SODIUM 500 MG DR TABLET PO SCH ×2 (08:18→16:39)
[2018-05-26] MEDS: LORazepam 2 MG TABLET PO PRN ×3 (08:18→19:19)
[2018-05-26] MEDS: BuPROPion HCL XL 150 MG ER TABLET PO SCH (08:18)
[2018-05-26 08:26] VITALS: BP 138/77
[2018-05-26 16:17] VITALS: BP 122/73
[2018-05-26] MEDS: OLANZapine 10 MG TABLET PO SCH (20:34)
[2018-05-27 00:34] VITALS: BP 104/61
[2018-05-27] MEDS: ZOLPIDEM TARTRATE 10 MG TABLET PO PRN (00:46)
[2018-05-27] MEDS: LORazepam 2 MG TABLET PO PRN ×4 (01:16→23:41)
[2018-05-27 08:31] VITALS: BP 122/81
[2018-05-27] MEDS: DIVALPROEX SODIUM 500 MG DR TABLET PO SCH ×2 (08:35→16:37)
[2018-05-27] MEDS: BuPROPion HCL XL 150 MG ER TABLET PO SCH (08:35)
[2018-05-27 12:14] VITALS: BP 135/92
[2018-05-27] MEDS: IBUPROFEN 400 MG TABLET PO PRN (12:14)
[2018-05-27 16:19] VITALS: BP 140/86
[2018-05-27] MEDS: OLANZapine 10 MG TABLET PO SCH (20:33)
[2018-05-28] MEDS: ZOLPIDEM TARTRATE 10 MG TABLET PO PRN (00:06)
[2018-05-28 00:10] VITALS: BP 148/80
[2018-05-28] MEDS: BuPROPion HCL XL 150 MG ER TABLET PO SCH (08:10)
[2018-05-28] MEDS: LORazepam 2 MG TABLET PO PRN ×2 (08:10→15:57)
[2018-05-28] MEDS: DIVALPROEX SODIUM 500 MG DR TABLET PO SCH ×2 (08:10→16:39)
[2018-05-28 08:21] VITALS: BP 140/80
[2018-05-28 16:37] VITALS: BP 124/71
[2018-05-28] MEDS: OLANZapine 10 MG TABLET PO SCH (20:34)
[2018-05-29] MEDS: ZOLPIDEM TARTRATE 10 MG TABLET PO PRN (00:14)
[2018-05-29 00:50] VITALS: BP 127/82
[2018-05-29] MEDS: LORazepam 2 MG TABLET PO PRN (01:40)
[2018-05-29 08:24] VITALS: BP 122/72
[2018-05-29] MEDS: DIVALPROEX SODIUM 500 MG DR TABLET PO SCH (08:26)
[2018-05-29] MEDS: BuPROPion HCL XL 150 MG ER TABLET PO SCH (08:26)
== END 2018-05-29 14:42 | disposition home or self-care (01) | DRG 885 ==
LOC: B2X 15:12
PROVIDERS: ADMIT Psychiatry & Neurology Child & Adolescent Psychiatry; ATTEND Psychiatry & Neurology Child & Adolescent Psychiatry
DX: F20.9 Schizophrenia, unspecified (principal); F10.10 Alcohol abuse, uncomplicated; F41.9 Anxiety disorder, unspecified; K59.00 Constipation, unspecified; G47.00 Insomnia, unspecified; Y90.9 Presence of alcohol in blood, level not specified; E05.90 Thyrotoxicosis, unspecified without thyrotoxic crisis or storm; E78.5 Hyperlipidemia, unspecified; Z71.6 Tobacco abuse counseling; Z71.41 Alcohol abuse counseling and surveillance of alcoholic; Z91.14 Patient's other noncompliance with medication regimen
CPT/HCPCS: 83036; 84439; 84443; 87081

== ENCOUNTER 2018-09-25 21:44 | Inpatient (IN) | payer MEDICARE, MEDICAID ==
[~2018-09-25] VITALS: Ht 170.2 cm; Wt 101.6 kg
[~2018-09-25 21:44] MED LIST changes: -DIPH50 PO; +DIVA-78 PO; -DIVA250T4 PO; -SERT100T12 PO; -TOPI25 PO
[2018-09-25 22:51] VITALS: BP 126/96
[2018-09-25 22:53] VITALS: BP 126/96
[2018-09-26] VITALS (12 sets, daily range): BP systolic 116–155; BP diastolic 69–100
[2018-09-26] MEDS: ZOLPIDEM TARTRATE 10 MG TABLET PO PRN (01:37)
[2018-09-26] MEDS: LORazepam 2 MG TABLET PO PRN ×3 (01:37→17:16)
[2018-09-26] MEDS ORDERED: ALBUTEROL SULFATE HFA 90 MCG/PUFF 8 GM INHALER IH PRN (07:00)
[2018-09-26] MEDS ORDERED: CloNIDine HCL 0.1 MG TABLET PO PRN (07:00)
[2018-09-26] MEDS ORDERED: MAG HYDROX/AL HYDROX/SIMETH ES 30 ML SUSPENSION UDCUP PO PRN (07:00)
[2018-09-26] MEDS ORDERED: ONDANSETRON HCL 4 MG TABLET PO PRN (07:00)
[2018-09-26] MEDS ORDERED: GuaiFENesin/D-METHORPHAN [SUGAR-FREE] 200-20MG/10 ML SYRUP UDCUP PO PRN (07:00)
[2018-09-26] MEDS ORDERED: MAGNESIUM HYDROXIDE SUSPENSION 30 ML UDCUP PO PRN (07:00)
[2018-09-26] MEDS ORDERED: LOPERAMIDE HCL 2 MG CAPSULE PO PRN (07:00)
[2018-09-26] MEDS ORDERED: ACETAMINOPHEN 325 MG TABLET PO PRN (07:00)
[2018-09-26] MEDS ORDERED: DOCUSATE SODIUM 100 MG CAPSULE PO PRN (07:00)
[2018-09-26] MEDS ORDERED: NICOTINE 14 MG/24 HOUR PATCH TD PRN (07:00)
[2018-09-26] MEDS ORDERED: PETROLATUM,WHITE 28 GM JELLY TP PRN (07:00)
[2018-09-26] MEDS: IBUPROFEN 400 MG TABLET PO PRN ×2 (07:20→16:16)
[2018-09-26 08:21] LABS: BASOPHILS % (AUTO) 0.9 % (0.0-2.0); EOSINOPHILS % (AUTO) 2.5 % (1.0-6.0); HEMATOCRIT 46.8 % (41-53); HEMOGLOBIN 15.6 g/dL (13.5-17.5); LYMPHOCYTES # (AUTO) 2.9 K/uL (1.0-4.8); LYMPHOCYTES % (AUTO) 34.9 % (22.0-44.0); MEAN CORPUSCULAR HEMOGLOBIN 30.3 pg (26.0-34.0); MEAN CORPUSCULAR HGB CONC 33.3 G/dL (31.0-37.0); MEAN CORPUSCULAR VOLUME 91 fL (80-100); MONOCYTES # (AUTO) 0.8 K/uL (0.1-1.0); MONOCYTES % (AUTO) 9.3 % (2.0-9.0); NEUTROPHILS # (AUTO) 4.3 K/uL (1.8-7.7); NEUTROPHILS % (AUTO) 52.4 % (40.0-70.0); PLATELET COUNT (AUTO) 119 K/uL (150-450); RED BLOOD CELL COUNT(AUTO) 5.15 MIL/uL (4.50-5.90); RED CELL DISTRIBUTION WIDTH 13.5 % (11.5-14.5)
[2018-09-26] MEDS: DIVALPROEX SODIUM 500 MG DR TABLET PO SCH ×2 (10:31→17:03)
[2018-09-26] MEDS: BuPROPion HCL XL 150 MG ER TABLET PO SCH (10:31)
[2018-09-27] MEDS: LORazepam 2 MG TABLET PO PRN ×3 (00:16→23:59)
[2018-09-27] MEDS: ZOLPIDEM TARTRATE 10 MG TABLET PO PRN (00:17)
[2018-09-27 00:45] VITALS: BP 122/75
[2018-09-27] MEDS: IBUPROFEN 400 MG TABLET PO PRN ×2 (00:51→14:23)
[2018-09-27] MEDS: HALOPERIDOL 5 MG TABLET PO PRN ×2 (03:54→23:59)
[2018-09-27 05:41] VITALS: BP 125/76
[2018-09-27 07:33] LABS: ALANINE AMINOTRANSFERASE 42 U/L (12-78); ALBUMIN 3.2 g/dL (3.4-5.0); ALKALINE PHOSPHATASE 71 U/L (46-116); ANION GAP 10 mmol/L (8-16); ASPARTATE AMINOTRANSFERASE 25 U/L (15-37); BILIRUBIN,TOTAL 0.3 mg/dL (0.1-1.0); CALCIUM, TOTAL 8.9 mg/dL (8.8-10.5); CARBON DIOXIDE 26 mmol/L (22-29); CHLORIDE 106 mmol/L (98-107); CHOL/HDL RATIO 5.7 (4.2-7.3); CHOLESTEROL 170 mg/dL (131-200); CREATININE 0.97 mg/dL (0.60-1.30); GLOMERULAR FILTR. RATE CALC > 60 mL/min (>60); GLUCOSE,RANDOM 80 mg/dL (70-110); HDL CHOLESTEROL 30 mg/dL (40-60); LDL CHOL (CALC.) 97 mg/dL (0-130); POTASSIUM 4.4 mmol/L (3.5-5.1); SODIUM SERUM 142 mmol/L (136-145); THYROID STIMULATING HORMONE 0.97 uIU/mL (0.36-3.74); TRIGLYCERIDES 217 mg/dL (15-150); UREA NITROGEN, BLOOD 12 mg/dL (7-18); VALPROIC ACID 48 mcg/mL (50-100)
[2018-09-27] MEDS: DIVALPROEX SODIUM 500 MG DR TABLET PO SCH (08:31)
[2018-09-27] MEDS: BuPROPion HCL XL 150 MG ER TABLET PO SCH (08:31)
[2018-09-27 08:48] VITALS: BP 124/87
[2018-09-27 14:23] VITALS: BP 122/76
[2018-09-27 16:08] VITALS: BP 121/84
[2018-09-27] MEDS: DIVALPROEX SODIUM 250 MG DR TABLET PO SCH (17:03)
[2018-09-27 23:53] VITALS: BP 136/92
[2018-09-28] VITALS (7 sets, daily range): BP systolic 112–130; BP diastolic 62–81
[2018-09-28] MEDS: ZOLPIDEM TARTRATE 10 MG TABLET PO PRN (01:22)
[2018-09-28 07:42] LABS: AMPHET/METH SCREEN,URINE NEGATIVE (NEGATIVE); BARBITURATE SCREEN, URINE NEGATIVE (NEGATIVE); BENZODIAZEPINES SCREEN,URINE NEGATIVE (NEGATIVE); CANNABINOID SCREEN,URINE POSITIVE (NEGATIVE); COCAINE SCREEN,URINE NEGATIVE (NEGATIVE); METHADONE SCREEN, URINE NEGATIVE (NEGATIVE); OPIATE SCREEN,URINE NEGATIVE (NEGATIVE); PHENCYCLIDINE SCREEN,URINE NEGATIVE (NEGATIVE)
[2018-09-28 07:55] LABS: APPEARANCE,URINE CLOUDY (CLEAR); BILIRUBIN,URINE NEGATIVE (NEGATIVE); GLUCOSE, URINE (UA) NEGATIVE (NEGATIVE); KETONES,URINE NEGATIVE (NEGATIVE); LEUKOCYTE ESTERASE ,URINE NEGATIVE (NEGATIVE); NITRATE,URINE NEGATIVE (NEGATIVE); OCCULT BLOOD,URINE NEGATIVE (NEGATIVE); PH,URINE 7.5 (5.0-8.0); PROTEIN,URINE NEGATIVE (NEGATIVE); UROBILINOGEN,URINE 0.2 mg/dL (<=1.0)
[2018-09-28] MEDS: BuPROPion HCL XL 150 MG ER TABLET PO SCH (08:28)
[2018-09-28] MEDS: DIVALPROEX SODIUM 250 MG DR TABLET PO SCH ×2 (08:28→16:05)
[2018-09-28] MEDS: IBUPROFEN 400 MG TABLET PO PRN (10:42)
[2018-09-28] MEDS: LORazepam 2 MG TABLET PO PRN ×2 (10:42→16:13)
[2018-09-29] MEDS: ZOLPIDEM TARTRATE 10 MG TABLET PO PRN (00:43)
[2018-09-29 01:33] VITALS: BP 120/81
[2018-09-29] MEDS: LORazepam 2 MG TABLET PO PRN ×3 (01:37→15:43)
[2018-09-29 02:57] VITALS: BP 138/90
[2018-09-29] MEDS: IBUPROFEN 400 MG TABLET PO PRN ×2 (02:57→16:06)
[2018-09-29 08:19] VITALS: BP 125/71
[2018-09-29] MEDS: BuPROPion HCL XL 150 MG ER TABLET PO SCH (08:37)
[2018-09-29] MEDS: DIVALPROEX SODIUM 250 MG DR TABLET PO SCH ×2 (08:37→16:34)
[2018-09-29 10:54] VITALS: BP 125/71
[2018-09-29 16:06] VITALS: BP 120/78
[2018-09-29 18:42] VITALS: BP 119/70
[2018-09-30 00:09] VITALS: BP 123/89
[2018-09-30 00:10] VITALS: BP 123/89
[2018-09-30] MEDS: ZOLPIDEM TARTRATE 10 MG TABLET PO PRN (00:11)
[2018-09-30] MEDS: LORazepam 2 MG TABLET PO PRN (00:53)
[2018-09-30 02:38] VITALS: BP 118/70
[2018-09-30] MEDS: IBUPROFEN 400 MG TABLET PO PRN (02:38)
[2018-09-30 08:09] VITALS: BP 121/74
[2018-09-30 08:22] VITALS: BP 121/74
[2018-09-30] MEDS: DIVALPROEX SODIUM 250 MG DR TABLET PO SCH (08:41)
[2018-09-30] MEDS: BuPROPion HCL XL 150 MG ER TABLET PO SCH (08:42)
== END 2018-09-30 11:00 | disposition home or self-care (01) | DRG 885 ==
LOC: B2X 23:54
PROVIDERS: ADMIT Psychiatry & Neurology Psychiatry; ATTEND Psychiatry & Neurology Psychiatry
DX: F20.9 Schizophrenia, unspecified (principal); K86.1 Other chronic pancreatitis; R45.851 Suicidal ideations; D69.6 Thrombocytopenia, unspecified; F10.10 Alcohol abuse, uncomplicated; F41.9 Anxiety disorder, unspecified; G47.00 Insomnia, unspecified; F32.9 Major depressive disorder, single episode, unspecified; F19.10 Other psychoactive substance abuse, uncomplicated; Z71.41 Alcohol abuse counseling and surveillance of alcoholic; Z71.51 Drug abuse counseling and surveillance of drug abuser
CPT/HCPCS: 80307; 84436; 84443; 87081

== ENCOUNTER 2018-10-03 10:52 | Inpatient (IN) | payer MEDICARE, MEDICAID ==
[~2018-10-03] VITALS: Ht 172.7 cm; Wt 103.6 kg
[~2018-10-03 10:52] MED LIST changes: -OLAN10TA3 PO
[2018-10-03 10:59] VITALS: BP 145/95
[2018-10-03] MEDS ORDERED: HALOPERIDOL 5 MG TABLET PO PRN (11:30)
[2018-10-03 12:37] VITALS: BP 145/82
[2018-10-03] MEDS: LORazepam 2 MG TABLET PO PRN ×2 (13:23→18:01)
[2018-10-03] MEDS ORDERED: ALBUTEROL SULFATE HFA 90 MCG/PUFF 8 GM INHALER IH PRN (13:30)
[2018-10-03] MEDS ORDERED: ONDANSETRON HCL 4 MG TABLET PO PRN (13:30)
[2018-10-03] MEDS ORDERED: PETROLATUM,WHITE 28 GM JELLY TP PRN (13:30)
[2018-10-03] MEDS ORDERED: LOPERAMIDE HCL 2 MG CAPSULE PO PRN (13:30)
[2018-10-03] MEDS ORDERED: GuaiFENesin/D-METHORPHAN [SUGAR-FREE] 200-20MG/10 ML SYRUP UDCUP PO PRN (13:30)
[2018-10-03] MEDS ORDERED: NICOTINE 14 MG/24 HOUR PATCH TD PRN (13:30)
[2018-10-03] MEDS ORDERED: CloNIDine HCL 0.1 MG TABLET PO PRN (13:30)
[2018-10-03] MEDS ORDERED: MAGNESIUM HYDROXIDE SUSPENSION 30 ML UDCUP PO PRN (13:30)
[2018-10-03] MEDS ORDERED: DOCUSATE SODIUM 100 MG CAPSULE PO PRN (13:30)
[2018-10-03] MEDS ORDERED: MAG HYDROX/AL HYDROX/SIMETH ES 30 ML SUSPENSION UDCUP PO PRN (13:30)
[2018-10-03 16:14] VITALS: BP 133/74
[2018-10-03] MEDS: DIVALPROEX SODIUM 500 MG DR TABLET PO SCH (16:41)
[2018-10-03] MEDS: IBUPROFEN 400 MG TABLET PO PRN (17:25)
[2018-10-03] MEDS: ZOLPIDEM TARTRATE 10 MG TABLET PO PRN (20:32)
[2018-10-04 06:44] VITALS: BP 130/81
[2018-10-04] MEDS: LORazepam 2 MG TABLET PO PRN ×3 (06:56→16:38)
[2018-10-04 07:27] LABS: BASOPHILS % (AUTO) 0.7 % (0.0-2.0); EOSINOPHILS % (AUTO) 1.2 % (1.0-6.0); HEMATOCRIT 48.6 % (41-53); HEMOGLOBIN 16.2 g/dL (13.5-17.5); LYMPHOCYTES # (AUTO) 2.6 K/uL (1.0-4.8); MEAN CORPUSCULAR HEMOGLOBIN 29.9 pg (26.0-34.0); MEAN CORPUSCULAR HGB CONC 33.4 G/dL (31.0-37.0); MEAN CORPUSCULAR VOLUME 90 fL (80-100); MONOCYTES # (AUTO) 1.3 K/uL (0.1-1.0); MONOCYTES % (AUTO) 11.2 % (2.0-9.0); NEUTROPHILS # (AUTO) 7.7 K/uL (1.8-7.7); NEUTROPHILS % (AUTO) 64.9 % (40.0-70.0); PLATELET COUNT (AUTO) 241 K/uL (150-450); RED BLOOD CELL COUNT(AUTO) 5.43 MIL/uL (4.50-5.90); RED CELL DISTRIBUTION WIDTH 13.7 % (11.5-14.5)
[2018-10-04 07:47] LABS: HEMOGLOBIN A1C 4.8 % (4.5-6.2)
[2018-10-04 07:59] LABS: ALANINE AMINOTRANSFERASE 37 U/L (12-78); ALBUMIN 3.3 g/dL (3.4-5.0); ALKALINE PHOSPHATASE 76 U/L (46-116); ANION GAP 7 mmol/L (8-16); ASPARTATE AMINOTRANSFERASE 24 U/L (15-37); BILIRUBIN,TOTAL 0.7 mg/dL (0.1-1.0); CALCIUM, TOTAL 8.9 mg/dL (8.8-10.5); CARBON DIOXIDE 29 mmol/L (22-29); CHLORIDE 103 mmol/L (98-107); CHOL/HDL RATIO 4.6 (4.2-7.3); CHOLESTEROL 101 mg/dL (131-200); CREATININE 0.98 mg/dL (0.60-1.30); FREE T4 (FREE THYROXINE) 1.28 ng/dL (0.76-1.46); GLOMERULAR FILTR. RATE CALC > 60 mL/min (>60); GLUCOSE,RANDOM 94 mg/dL (70-110); HDL CHOLESTEROL 22 mg/dL (40-60); LDL CHOL (CALC.) 52 mg/dL (0-130); POTASSIUM 3.9 mmol/L (3.5-5.1); SODIUM SERUM 139 mmol/L (136-145); THYROID STIMULATING HORMONE 0.82 uIU/mL (0.36-3.74); TOTAL PROTEIN, SERUM 6.6 g/dL (6.4-8.2); TRIGLYCERIDES 134 mg/dL (15-150); UREA NITROGEN, BLOOD 13 mg/dL (7-18)
[2018-10-04] MEDS: BuPROPion HCL XL 150 MG ER TABLET PO SCH (08:20)
[2018-10-04] MEDS: DIVALPROEX SODIUM 500 MG DR TABLET PO SCH (08:20)
[2018-10-04 08:50] VITALS: BP 138/77
[2018-10-04 16:17] VITALS: BP 118/83
[2018-10-04] MEDS: IBUPROFEN 400 MG TABLET PO PRN (18:03)
[2018-10-04 18:05] VITALS: BP 122/78
[2018-10-04] MEDS: DIVALPROEX SODIUM 250 MG DR TABLET PO SCH (20:29)
[2018-10-04] MEDS: OLANZapine 10 MG TABLET PO SCH (20:29)
[2018-10-05 05:05] VITALS: BP 120/81
[2018-10-05] MEDS: LORazepam 2 MG TABLET PO PRN ×2 (08:02→18:12)
[2018-10-05 08:04] LABS: AMPHET/METH SCREEN,URINE POSITIVE (NEGATIVE); BARBITURATE SCREEN, URINE NEGATIVE (NEGATIVE); BENZODIAZEPINES SCREEN,URINE NEGATIVE (NEGATIVE); CANNABINOID SCREEN,URINE POSITIVE (NEGATIVE); COCAINE SCREEN,URINE NEGATIVE (NEGATIVE); METHADONE SCREEN, URINE NEGATIVE (NEGATIVE); OPIATE SCREEN,URINE NEGATIVE (NEGATIVE)
[2018-10-05 08:06] LABS: PHENCYCLIDINE SCREEN,URINE NEGATIVE (NEGATIVE)
[2018-10-05 08:14] VITALS: BP 124/80
[2018-10-05 08:16] LABS: APPEARANCE,URINE CLEAR (CLEAR); BILIRUBIN,URINE NEGATIVE (NEGATIVE); GLUCOSE, URINE (UA) NEGATIVE (NEGATIVE); KETONES,URINE NEGATIVE (NEGATIVE); LEUKOCYTE ESTERASE ,URINE NEGATIVE (NEGATIVE); NITRATE,URINE NEGATIVE (NEGATIVE); OCCULT BLOOD,URINE NEGATIVE (NEGATIVE); PROTEIN,URINE NEGATIVE (NEGATIVE); UROBILINOGEN,URINE 0.2 mg/dL (<=1.0)
[2018-10-05] MEDS: BuPROPion HCL XL 150 MG ER TABLET PO SCH (08:33)
[2018-10-05] MEDS: DIVALPROEX SODIUM 250 MG DR TABLET PO SCH ×2 (08:33→20:32)
[2018-10-05 16:18] VITALS: BP 116/68
[2018-10-05] MEDS: OLANZapine 10 MG TABLET PO SCH (20:31)
[2018-10-05] MEDS: ZOLPIDEM TARTRATE 10 MG TABLET PO PRN (21:27)
[2018-10-06 00:21] VITALS: BP 122/78
[2018-10-06] MEDS: LORazepam 2 MG TABLET PO PRN ×4 (00:22→14:20)
[2018-10-06 08:26] VITALS: BP 122/80
[2018-10-06] MEDS: BuPROPion HCL XL 150 MG ER TABLET PO SCH (08:46)
[2018-10-06] MEDS: DIVALPROEX SODIUM 250 MG DR TABLET PO SCH ×2 (08:46→20:34)
[2018-10-06 16:23] VITALS: BP 109/67
[2018-10-06] MEDS: OLANZapine 10 MG TABLET PO SCH (20:34)
[2018-10-07 05:55] VITALS: BP 101/62
[2018-10-07 08:16] VITALS: BP 115/68
[2018-10-07 08:16] LABS: BASOPHILS % (AUTO) 0.5 % (0.0-2.0); EOSINOPHILS % (AUTO) 0.9 % (1.0-6.0); HEMATOCRIT 46.8 % (41-53); HEMOGLOBIN 15.9 g/dL (13.5-17.5); LYMPHOCYTES # (AUTO) 2.5 K/uL (1.0-4.8); MEAN CORPUSCULAR HEMOGLOBIN 30.4 pg (26.0-34.0); MEAN CORPUSCULAR VOLUME 90 fL (80-100); MONOCYTES % (AUTO) 9.5 % (2.0-9.0); NEUTROPHILS # (AUTO) 6.5 K/uL (1.8-7.7); NEUTROPHILS % (AUTO) 64.1 % (40.0-70.0); PLATELET COUNT (AUTO) 275 K/uL (150-450); RED BLOOD CELL COUNT(AUTO) 5.22 MIL/uL (4.50-5.90); RED CELL DISTRIBUTION WIDTH 13.5 % (11.5-14.5)
[2018-10-07] MEDS: BuPROPion HCL XL 150 MG ER TABLET PO SCH (08:34)
[2018-10-07] MEDS: DIVALPROEX SODIUM 250 MG DR TABLET PO SCH ×2 (08:34→20:35)
[2018-10-07] MEDS: LORazepam 2 MG TABLET PO PRN ×2 (08:50→16:33)
[2018-10-07] MEDS: IBUPROFEN 400 MG TABLET PO PRN ×2 (08:51→18:29)
[2018-10-07 16:11] VITALS: BP 119/78
[2018-10-07 18:30] VITALS: BP 123/82
[2018-10-07] MEDS: OLANZapine 10 MG TABLET PO SCH (20:35)
[2018-10-07] MEDS: ZOLPIDEM TARTRATE 10 MG TABLET PO PRN (21:59)
[2018-10-08 00:03] VITALS: BP 117/76
[2018-10-08] MEDS: LORazepam 2 MG TABLET PO PRN ×3 (05:08→17:24)
[2018-10-08] MEDS: DIVALPROEX SODIUM 250 MG DR TABLET PO SCH ×2 (08:13→20:33)
[2018-10-08] MEDS: BuPROPion HCL XL 150 MG ER TABLET PO SCH (08:13)
[2018-10-08 08:17] VITALS: BP 119/82
[2018-10-08] MEDS: IBUPROFEN 400 MG TABLET PO PRN (16:09)
[2018-10-08 16:11] VITALS: BP 123/90
[2018-10-08 18:40] VITALS: BP 117/73
[2018-10-08] MEDS: OLANZapine 10 MG TABLET PO SCH (20:33)
[2018-10-08] MEDS: ZOLPIDEM TARTRATE 10 MG TABLET PO PRN (21:08)
[2018-10-09] VITALS: BP 139/83
[2018-10-09 08:24] VITALS: BP 123/80
[2018-10-09] MEDS: DIVALPROEX SODIUM 250 MG DR TABLET PO SCH ×2 (08:31→20:21)
[2018-10-09] MEDS: BuPROPion HCL XL 150 MG ER TABLET PO SCH (08:31)
[2018-10-09] MEDS: LORazepam 2 MG TABLET PO PRN ×3 (09:06→14:03)
[2018-10-09 12:51] VITALS: BP 118/78
[2018-10-09] MEDS: IBUPROFEN 400 MG TABLET PO PRN (12:51)
[2018-10-09 16:50] VITALS: BP 136/78
[2018-10-09] MEDS: OLANZapine 10 MG TABLET PO SCH (20:21)
[2018-10-09] MEDS: ZOLPIDEM TARTRATE 10 MG TABLET PO PRN (21:39)
[2018-10-10 00:10] VITALS: BP 128/72
[2018-10-10] MEDS: LORazepam 2 MG TABLET PO PRN ×2 (00:47→23:31)
[2018-10-10 08:31] VITALS: BP 122/89
[2018-10-10] MEDS: DIVALPROEX SODIUM 250 MG DR TABLET PO SCH ×2 (09:02→20:30)
[2018-10-10] MEDS: BuPROPion HCL XL 150 MG ER TABLET PO SCH (09:02)
[2018-10-10 16:13] VITALS: BP 106/69
[2018-10-10] MEDS: OLANZapine 10 MG TABLET PO SCH (20:30)
[2018-10-11 00:05] VITALS: BP 127/81
[2018-10-11] MEDS: ZOLPIDEM TARTRATE 10 MG TABLET PO PRN (01:16)
[2018-10-11 08:25] VITALS: BP 118/76
[2018-10-11] MEDS: BuPROPion HCL XL 150 MG ER TABLET PO SCH (08:29)
[2018-10-11] MEDS: DIVALPROEX SODIUM 250 MG DR TABLET PO SCH ×2 (08:29→20:13)
[2018-10-11] MEDS: LORazepam 2 MG TABLET PO PRN ×2 (12:28→20:48)
[2018-10-11 16:24] VITALS: BP 113/64
[2018-10-11] MEDS: OLANZapine 10 MG TABLET PO SCH (20:13)
[2018-10-12 00:20] VITALS: BP 116/76
[2018-10-12] MEDS: LORazepam 2 MG TABLET PO PRN ×3 (00:47→22:34)
[2018-10-12] MEDS: ZOLPIDEM TARTRATE 10 MG TABLET PO PRN ×2 (00:47→23:40)
[2018-10-12] MEDS: BuPROPion HCL XL 150 MG ER TABLET PO SCH (08:03)
[2018-10-12] MEDS: DIVALPROEX SODIUM 250 MG DR TABLET PO SCH ×2 (08:03→20:22)
[2018-10-12 08:15] VITALS: BP 122/80
[2018-10-12 10:42] VITALS: BP 118/76
[2018-10-12] MEDS: ACETAMINOPHEN 325 MG TABLET PO PRN (10:42)
[2018-10-12 16:17] VITALS: BP 123/66
[2018-10-12] MEDS: OLANZapine 10 MG TABLET PO SCH (20:21)
[2018-10-13] MEDS: IBUPROFEN 400 MG TABLET PO PRN ×2 (01:28→08:28)
[2018-10-13 01:30] VITALS: BP 116/74
[2018-10-13 08:20] VITALS: BP 122/76
[2018-10-13] MEDS: DIVALPROEX SODIUM 250 MG DR TABLET PO SCH ×2 (08:28→20:36)
[2018-10-13] MEDS: BuPROPion HCL XL 150 MG ER TABLET PO SCH (08:28)
[2018-10-13] MEDS: LORazepam 2 MG TABLET PO PRN ×2 (08:29→23:41)
[2018-10-13 16:29] VITALS: BP 117/65
[2018-10-13] MEDS: OLANZapine 10 MG TABLET PO SCH (20:36)
[2018-10-13] MEDS: ZOLPIDEM TARTRATE 10 MG TABLET PO PRN (23:41)
[2018-10-14 00:03] VITALS: BP 121/89
[2018-10-14 08:23] VITALS: BP 122/79
[2018-10-14] MEDS: DIVALPROEX SODIUM 250 MG DR TABLET PO SCH ×2 (08:36→20:49)
[2018-10-14] MEDS: LORazepam 2 MG TABLET PO PRN ×2 (08:36→15:54)
[2018-10-14] MEDS: BuPROPion HCL XL 150 MG ER TABLET PO SCH (08:36)
[2018-10-14] MEDS: ACETAMINOPHEN 325 MG TABLET PO PRN (08:37)
[2018-10-14 16:02] VITALS: BP 116/79
[2018-10-14] MEDS: OLANZapine 10 MG TABLET PO SCH (20:49)
[2018-10-15] MEDS: ZOLPIDEM TARTRATE 10 MG TABLET PO PRN (00:57)
[2018-10-15 00:58] VITALS: BP 139/91
[2018-10-15] MEDS: LORazepam 2 MG TABLET PO PRN ×2 (01:36→08:05)
[2018-10-15] MEDS: BuPROPion HCL XL 150 MG ER TABLET PO SCH (08:05)
[2018-10-15] MEDS: DIVALPROEX SODIUM 250 MG DR TABLET PO SCH ×2 (08:05→20:07)
[2018-10-15 08:15] VITALS: BP 121/76
[2018-10-15] MEDS ORDERED: OLAN20TA2 PO (16:24)
[2018-10-15 18:37] VITALS: BP 119/86
[2018-10-15] MEDS: OLANZapine 10 MG TABLET PO SCH (20:06)
== END 2018-10-15 20:30 | disposition home or self-care (01) | DRG 885 ==
LOC: B2X 12:07 → EDSTATUS 12:08
PROVIDERS: ADMIT Psychiatry & Neurology Psychiatry; ATTEND Psychiatry & Neurology Psychiatry
DX: F20.0 Paranoid schizophrenia (principal); K86.1 Other chronic pancreatitis; F15.10 Other stimulant abuse, uncomplicated; D72.829 Elevated white blood cell count, unspecified; F10.10 Alcohol abuse, uncomplicated; F32.9 Major depressive disorder, single episode, unspecified; G47.00 Insomnia, unspecified; Z71.41 Alcohol abuse counseling and surveillance of alcoholic; Z71.51 Drug abuse counseling and surveillance of drug abuser
CPT/HCPCS: 80307; 83036; 84439; 84443; 87081

== ENCOUNTER 2018-11-05 10:03 | Emergency (ER) | payer MEDICARE, MEDICAID ==
[~2018-11-05] VITALS: Ht 170.2 cm; Wt 105.0 kg
[~2018-11-05 10:03] MED LIST changes: +OLAN20TA2 PO
[2018-11-05] MEDS ORDERED: HydrOXYzine PAMOATE 50 MG CAPSULE PO ONE (10:45)
[2018-11-05] MEDS: HALOPERIDOL 5 MG TABLET PO ONE ×2 (11:52→11:54)
[2018-11-05 14:07] VITALS: BP 162/99
== END 2018-11-05 13:56 | disposition left against medical advice (07) ==
LOC: EMS 10:08
DX: I10 Essential (primary) hypertension (principal); F20.0 Paranoid schizophrenia; F41.9 Anxiety disorder, unspecified; F19.90 Other psychoactive substance use, unspecified, uncomplicated
CPT/HCPCS: 93005

== ENCOUNTER 2018-12-19 13:56 | Inpatient (IN) | payer MEDICARE, MEDICAID ==
[~2018-12-19] VITALS: Ht 170.2 cm; Wt 102.6 kg
[2018-12-19 14:27] VITALS: BP 142/93
[2018-12-19] MEDS ORDERED: HALOPERIDOL 5 MG TABLET PO PRN (14:30)
[2018-12-19] MEDS ORDERED: INFLUENZA VIRUS VACCINE QVS 2019-20 (3YR+)/PF 60 MCG/0.5 ML SYRINGE IM ONE (15:00)
[2018-12-19 16:00] VITALS: BP 160/94
[2018-12-19] MEDS: LORazepam 2 MG TABLET PO PRN ×2 (16:17→23:13)
[2018-12-19] MEDS ORDERED: ACETAMINOPHEN 325 MG TABLET PO PRN (17:45)
[2018-12-19] MEDS ORDERED: ALBUTEROL SULFATE HFA 90 MCG/PUFF 8 GM INHALER IH PRN (17:45)
[2018-12-19] MEDS ORDERED: CloNIDine HCL 0.1 MG TABLET PO PRN (17:45)
[2018-12-19] MEDS ORDERED: LOPERAMIDE HCL 2 MG CAPSULE PO PRN (17:45)
[2018-12-19] MEDS ORDERED: ONDANSETRON HCL 4 MG TABLET PO PRN (17:45)
[2018-12-19] MEDS ORDERED: PETROLATUM,WHITE 28 GM JELLY TP PRN (17:45)
[2018-12-19] MEDS ORDERED: BENZOCAINE/MENTHOL LOZENGE MM PRN (17:45)
[2018-12-19] MEDS ORDERED: IBUPROFEN 600 MG TABLET PO PRN (17:45)
[2018-12-19] MEDS ORDERED: MAG HYDROX/AL HYDROX/SIMETH ES 30 ML SUSPENSION UDCUP PO PRN (17:45)
[2018-12-19] MEDS ORDERED: BACITRACIN 28.4 GM OINTMENT TP PRN (17:45)
[2018-12-19] MEDS: ZOLPIDEM TARTRATE 10 MG TABLET PO PRN (20:16)
[2018-12-20 00:45] VITALS: BP 124/80
[2018-12-20] MEDS: LORazepam 2 MG TABLET PO PRN ×3 (05:03→14:39)
[2018-12-20 07:49] LABS: BASOPHILS % (AUTO) 0.7 % (0.0-2.0); EOSINOPHILS % (AUTO) 0.8 % (1.0-6.0); HEMATOCRIT 49.4 % (41-53); HEMOGLOBIN 17.1 g/dL (13.5-17.5); LYMPHOCYTES % (AUTO) 24.2 % (22.0-44.0); MEAN CORPUSCULAR HEMOGLOBIN 30.6 pg (26.0-34.0); MEAN CORPUSCULAR HGB CONC 34.7 G/dL (31.0-37.0); MEAN CORPUSCULAR VOLUME 88 fL (80-100); MONOCYTES # (AUTO) 0.9 K/uL (0.1-1.0); NEUTROPHILS # (AUTO) 8.2 K/uL (1.8-7.7); NEUTROPHILS % (AUTO) 67.3 % (40.0-70.0); PLATELET COUNT (AUTO) 396 K/uL (150-450); RED BLOOD CELL COUNT(AUTO) 5.59 MIL/uL (4.50-5.90); RED CELL DISTRIBUTION WIDTH 13.4 % (11.5-14.5)
[2018-12-20 08:15] LABS: ALANINE AMINOTRANSFERASE 48 U/L (12-78); ALBUMIN 4.2 g/dL (3.4-5.0); ALKALINE PHOSPHATASE 90 U/L (46-116); ANION GAP 12 mmol/L (8-16); ASPARTATE AMINOTRANSFERASE 23 U/L (15-37); BILIRUBIN,TOTAL 0.6 mg/dL (0.1-1.0); CALCIUM, TOTAL 9.8 mg/dL (8.8-10.5); CARBON DIOXIDE 23 mmol/L (22-29); CHLORIDE 103 mmol/L (98-107); CHOL/HDL RATIO 6.1 (4.2-7.3); CHOLESTEROL 183 mg/dL (131-200); CREATININE 0.91 mg/dL (0.60-1.30); FREE T4 (FREE THYROXINE) 1.24 ng/dL (0.76-1.46); GLOMERULAR FILTR. RATE CALC > 60 mL/min (>60); GLUCOSE,RANDOM 108 mg/dL (70-110); HDL CHOLESTEROL 30 mg/dL (40-60); LDL CHOL (CALC.) 88 mg/dL (0-130); POTASSIUM 4.7 mmol/L (3.5-5.1); SODIUM SERUM 138 mmol/L (136-145); THYROID STIMULATING HORMONE 1.09 uIU/mL (0.36-3.74); TOTAL PROTEIN, SERUM 7.5 g/dL (6.4-8.2); TRIGLYCERIDES 326 mg/dL (15-150); UREA NITROGEN, BLOOD 13 mg/dL (7-18)
[2018-12-20 08:22] LABS: HEMOGLOBIN A1C 5.8 % (4.5-6.2)
[2018-12-20] MEDS: OMEPRAZOLE 20 MG CAPSULE PO SCH (08:26)
[2018-12-20] MEDS: DOCUSATE SODIUM 100 MG CAPSULE PO SCH (08:28)
[2018-12-20 08:44] VITALS: BP 119/91
[2018-12-20] MEDS: DIVALPROEX SODIUM 250 MG DR TABLET PO SCH ×2 (10:00→16:13)
[2018-12-20] MEDS: BuPROPion HCL XL 150 MG ER TABLET PO SCH (10:00)
[2018-12-20] MEDS ORDERED: DICLOFENAC SODIUM 1% 100 GM GEL [2GM] TP PRN (11:00)
[2018-12-20 16:04] VITALS: BP 118/68
[2018-12-20] MEDS: TraMADol HCL 50 MG TABLET PO PRN (16:10)
[2018-12-20 17:10] VITALS: BP 115/76
[2018-12-20] MEDS: OLANZapine 10 MG TABLET PO SCH (20:03)
[2018-12-20] MEDS: ZOLPIDEM TARTRATE 10 MG TABLET PO PRN (21:44)
[2018-12-21 00:05] VITALS: BP 119/88
[2018-12-21] MEDS: LORazepam 2 MG TABLET PO PRN ×4 (00:10→21:44)
[2018-12-21 08:18] VITALS: BP 135/73
[2018-12-21] MEDS: BuPROPion HCL XL 150 MG ER TABLET PO SCH (09:00)
[2018-12-21] MEDS: DIVALPROEX SODIUM 250 MG DR TABLET PO SCH ×3 (09:00→17:00)
[2018-12-21] MEDS: OMEPRAZOLE 20 MG CAPSULE PO SCH (09:00)
[2018-12-21] MEDS: DOCUSATE SODIUM 100 MG CAPSULE PO SCH (09:00)
[2018-12-21 16:05] VITALS: BP 126/85
[2018-12-21] MEDS: TraMADol HCL 50 MG TABLET PO PRN (17:52)
[2018-12-21 18:52] VITALS: BP 122/74
[2018-12-21] MEDS: ZOLPIDEM TARTRATE 10 MG TABLET PO PRN (21:04)
[2018-12-21] MEDS: OLANZapine 10 MG TABLET PO SCH (21:04)
[2018-12-22 01:07] VITALS: BP 114/62
[2018-12-22] MEDS: LORazepam 2 MG TABLET PO PRN (05:00)
[2018-12-22] MEDS ORDERED: OMEPRAZOLE 20 MG CAPSULE PO PRN (08:15)
[2018-12-22] MEDS ORDERED: DOCUSATE SODIUM 100 MG CAPSULE PO PRN (08:15)
[2018-12-22] MEDS: DIVALPROEX SODIUM 250 MG DR TABLET PO SCH ×2 (09:25→16:41)
[2018-12-22] MEDS: BuPROPion HCL XL 150 MG ER TABLET PO SCH (09:26)
[2018-12-22 11:00] VITALS: BP 124/84
[2018-12-22] MEDS: TraMADol HCL 50 MG TABLET PO PRN ×2 (11:07→11:10)
[2018-12-22 16:01] VITALS: BP 121/66
[2018-12-22] MEDS: OLANZapine 10 MG TABLET PO SCH (20:41)
[2018-12-22] MEDS: ZOLPIDEM TARTRATE 10 MG TABLET PO PRN (23:41)
[2018-12-23] VITALS: BP 112/71
[2018-12-23 08:21] VITALS: BP 117/79
[2018-12-23] MEDS: DIVALPROEX SODIUM 250 MG DR TABLET PO SCH ×2 (08:32→16:29)
[2018-12-23] MEDS: BuPROPion HCL XL 150 MG ER TABLET PO SCH (08:32)
[2018-12-23 16:47] VITALS: BP 121/79
[2018-12-23] MEDS: OLANZapine 10 MG TABLET PO SCH (20:26)
[2018-12-23] MEDS: ZOLPIDEM TARTRATE 10 MG TABLET PO PRN (21:18)
[2018-12-24 00:44] VITALS: BP 121/66
[2018-12-24] MEDS: BuPROPion HCL XL 150 MG ER TABLET PO SCH (08:07)
[2018-12-24] MEDS: DIVALPROEX SODIUM 250 MG DR TABLET PO SCH ×2 (08:08→16:30)
[2018-12-24 08:11] VITALS: BP 119/72
[2018-12-24 16:02] VITALS: BP 116/88
[2018-12-24] MEDS: OLANZapine 10 MG TABLET PO SCH (20:28)
[2018-12-24] MEDS: ZOLPIDEM TARTRATE 10 MG TABLET PO PRN (21:46)
[2018-12-25 01:28] VITALS: BP 120/76
[2018-12-25] MEDS: BuPROPion HCL XL 150 MG ER TABLET PO SCH (08:01)
[2018-12-25] MEDS: DIVALPROEX SODIUM 250 MG DR TABLET PO SCH ×2 (08:01→16:33)
[2018-12-25 08:11] VITALS: BP 135/77
[2018-12-25 16:23] VITALS: BP 126/83
[2018-12-25] MEDS: OLANZapine 10 MG TABLET PO SCH (20:36)
[2018-12-25] MEDS: ZOLPIDEM TARTRATE 10 MG TABLET PO PRN (20:52)
[2018-12-26] VITALS: BP 46/88
[2018-12-26] MEDS: TraMADol HCL 50 MG TABLET PO PRN (00:05)
[2018-12-26] MEDS: DIVALPROEX SODIUM 250 MG DR TABLET PO SCH ×2 (08:13→16:33)
[2018-12-26] MEDS: BuPROPion HCL XL 150 MG ER TABLET PO SCH (08:13)
[2018-12-26 08:28] VITALS: BP 120/80
[2018-12-26 18:48] VITALS: BP 115/87
[2018-12-26] MEDS: OLANZapine 10 MG TABLET PO SCH (20:12)
[2018-12-26] MEDS: ZOLPIDEM TARTRATE 10 MG TABLET PO PRN (20:43)
[2018-12-27 00:18] VITALS: BP 123/79
[2018-12-27] MEDS: TraMADol HCL 50 MG TABLET PO PRN (00:35)
[2018-12-27 08:25] VITALS: BP 133/79
[2018-12-27] MEDS: BuPROPion HCL XL 150 MG ER TABLET PO SCH (08:39)
[2018-12-27] MEDS: DIVALPROEX SODIUM 250 MG DR TABLET PO SCH ×2 (08:39→16:31)
[2018-12-27 16:11] VITALS: BP 132/84
[2018-12-27] MEDS: OLANZapine 10 MG TABLET PO SCH (20:30)
[2018-12-27] MEDS: ZOLPIDEM TARTRATE 10 MG TABLET PO PRN (21:51)
[2018-12-28 04:22] VITALS: BP 115/88
[2018-12-28] MEDS: TraMADol HCL 50 MG TABLET PO PRN (04:24)
[2018-12-28] MEDS: DIVALPROEX SODIUM 250 MG DR TABLET PO SCH ×2 (08:28→16:35)
[2018-12-28] MEDS: BuPROPion HCL XL 150 MG ER TABLET PO SCH (08:28)
[2018-12-28 08:51] VITALS: BP 115/79
[2018-12-28 17:30] VITALS: BP 117/80
[2018-12-28] MEDS: OLANZapine 10 MG TABLET PO SCH (20:30)
[2018-12-28] MEDS: MAGNESIUM HYDROXIDE SUSPENSION 30 ML UDCUP PO PRN (22:30)
[2018-12-29 00:17] VITALS: BP 113/68
[2018-12-29] MEDS: ZOLPIDEM TARTRATE 10 MG TABLET PO PRN (01:28)
[2018-12-29 08:32] VITALS: BP 120/75
[2018-12-29] MEDS: DIVALPROEX SODIUM 250 MG DR TABLET PO SCH ×2 (08:39→16:31)
[2018-12-29] MEDS: BuPROPion HCL XL 150 MG ER TABLET PO SCH (08:39)
[2018-12-29 16:08] VITALS: BP 119/75
[2018-12-29] MEDS: OLANZapine 10 MG TABLET PO SCH (20:02)
[2018-12-30] VITALS: BP 119/86
[2018-12-30] MEDS: ZOLPIDEM TARTRATE 10 MG TABLET PO PRN ×2 (00:05→22:54)
[2018-12-30] MEDS: TraMADol HCL 50 MG TABLET PO PRN (00:30)
[2018-12-30 08:17] VITALS: BP 123/90
[2018-12-30] MEDS: DIVALPROEX SODIUM 250 MG DR TABLET PO SCH ×2 (08:31→16:38)
[2018-12-30] MEDS: BuPROPion HCL XL 150 MG ER TABLET PO SCH (08:31)
[2018-12-30] MEDS: OMEGA-3/DHA/EPA/FISH OIL 1,000 MG CAPSULE PO SCH (08:54)
[2018-12-30 16:11] VITALS: BP 113/67
[2018-12-30] MEDS: MAGNESIUM HYDROXIDE SUSPENSION 30 ML UDCUP PO PRN (20:01)
[2018-12-30] MEDS: OLANZapine 10 MG TABLET PO SCH (20:35)
[2018-12-31 04:09] VITALS: BP 112/89
[2018-12-31 07:56] LABS: BAND NEUTROPHILS % (MANUAL) 0 % (0-5)
[2018-12-31 08:01] VITALS: BP 115/88
[2018-12-31 08:13] LABS: HEMATOCRIT 45.8 % (41-53); MEAN CORPUSCULAR VOLUME 88 fL (80-100); PLATELET COUNT (AUTO) 273 K/uL (150-450); RED BLOOD CELL COUNT(AUTO) 5.18 MIL/uL (4.50-5.90); RED CELL DISTRIBUTION WIDTH 13.5 % (11.5-14.5)
[2018-12-31 08:16] LABS: ANION GAP 6 mmol/L (8-16); CALCIUM, TOTAL 8.8 mg/dL (8.8-10.5); CARBON DIOXIDE 28 mmol/L (22-29); CHLORIDE 106 mmol/L (98-107); CREATININE 0.91 mg/dL (0.60-1.30); GLOMERULAR FILTR. RATE CALC > 60 mL/min (>60); GLUCOSE,RANDOM 107 mg/dL (70-110); PHOSPHORUS 3.7 mg/dL (2.5-4.9); POTASSIUM 4.1 mmol/L (3.5-5.1); SODIUM SERUM 140 mmol/L (136-145); UREA NITROGEN, BLOOD 12 mg/dL (7-18)
[2018-12-31] MEDS: OMEGA-3/DHA/EPA/FISH OIL 1,000 MG CAPSULE PO SCH (08:24)
[2018-12-31] MEDS: BuPROPion HCL XL 150 MG ER TABLET PO SCH (08:24)
[2018-12-31] MEDS: DIVALPROEX SODIUM 250 MG DR TABLET PO SCH (08:24)
[2018-12-31 08:43] LABS: LYMPHOCYTES % (MANUAL) 30 % (22-44); MONOCYTES % (MANUAL) 5 % (2-9); SEGMENTED NEUTROPHILS % 65 % (40-70)
== END 2018-12-31 13:20 | disposition home or self-care (01) | DRG 885 ==
LOC: B2X 14:39
PROVIDERS: ADMIT Psychiatry & Neurology Child & Adolescent Psychiatry; ATTEND Psychiatry & Neurology Child & Adolescent Psychiatry
DX: F20.0 Paranoid schizophrenia (principal); E66.9 Obesity, unspecified; F41.0 Panic disorder [episodic paroxysmal anxiety]; G47.00 Insomnia, unspecified; F41.9 Anxiety disorder, unspecified; K59.00 Constipation, unspecified
CPT/HCPCS: 83036; 83735; 84100; 84439; 84443; 85007; 90686

== ENCOUNTER 2019-02-14 02:27 | Inpatient (IN) | payer MEDICARE, MEDICAID ==
[~2019-02-14] VITALS: Ht 172.7 cm; Wt 105.2 kg
[2019-02-14] MEDS ORDERED: HALOPERIDOL 5 MG TABLET PO PRN (04:15)
[2019-02-14] MEDS: LORazepam 2 MG TABLET PO PRN ×4 (04:53→20:20)
[2019-02-14] MEDS ORDERED: INFLUENZA VIRUS VACCINE QVS 2019-20 (3YR+)/PF 60 MCG/0.5 ML SYRINGE IM ONE (06:45)
[2019-02-14 06:57] VITALS: BP 131/80
[2019-02-14 08:22] VITALS: BP 39/84
[2019-02-14] MEDS: BuPROPion HCL XL 150 MG ER TABLET PO SCH (13:37)
[2019-02-14] MEDS ORDERED: DOCUSATE SODIUM 100 MG CAPSULE PO PRN (14:15)
[2019-02-14] MEDS ORDERED: CloNIDine HCL 0.1 MG TABLET PO PRN (14:15)
[2019-02-14] MEDS ORDERED: IBUPROFEN 600 MG TABLET PO PRN (14:15)
[2019-02-14] MEDS ORDERED: BENZOCAINE/MENTHOL LOZENGE MM PRN (14:15)
[2019-02-14] MEDS ORDERED: MAG HYDROX/AL HYDROX/SIMETH ES 30 ML SUSPENSION UDCUP PO PRN (14:15)
[2019-02-14] MEDS ORDERED: PETROLATUM,WHITE 28 GM JELLY TP PRN (14:15)
[2019-02-14] MEDS ORDERED: OMEPRAZOLE 20 MG CAPSULE PO PRN (14:15)
[2019-02-14] MEDS ORDERED: MAGNESIUM HYDROXIDE SUSPENSION 30 ML UDCUP PO PRN (14:15)
[2019-02-14] MEDS ORDERED: ACETAMINOPHEN 325 MG TABLET PO PRN (14:15)
[2019-02-14] MEDS ORDERED: BACITRACIN 28.4 GM OINTMENT TP PRN (14:15)
[2019-02-14] MEDS ORDERED: ALBUTEROL SULFATE HFA 90 MCG/PUFF 8 GM INHALER IH PRN (14:15)
[2019-02-14] MEDS ORDERED: LOPERAMIDE HCL 2 MG CAPSULE PO PRN (14:15)
[2019-02-14] MEDS ORDERED: ONDANSETRON HCL 4 MG TABLET PO PRN (14:15)
[2019-02-14] MEDS: IBUPROFEN 600 MG TABLET PO PRN (14:34)
[2019-02-14] MEDS ORDERED: DICLOFENAC SODIUM 1% 100 GM GEL [2GM] TP PRN (14:45)
[2019-02-14] MEDS: DIVALPROEX SODIUM 500 MG DR TABLET PO SCH (16:06)
[2019-02-14] MEDS: OLANZapine 10 MG TABLET PO SCH ×2 (16:06→17:00)
[2019-02-14 16:07] VITALS: BP 132/82
[2019-02-14] MEDS: TraMADol HCL 50 MG TABLET PO PRN ×2 (16:07→22:28)
[2019-02-15] MEDS: ZOLPIDEM TARTRATE 10 MG TABLET PO PRN (00:01)
[2019-02-15 00:04] VITALS: BP 121/75
[2019-02-15] MEDS: TraMADol HCL 50 MG TABLET PO PRN ×2 (05:16→22:32)
[2019-02-15] MEDS: LORazepam 2 MG TABLET PO PRN ×2 (05:16→22:31)
[2019-02-15 07:06] LABS: BASOPHILS % (AUTO) 0.9 % (0.0-2.0); EOSINOPHILS % (AUTO) 1.1 % (1.0-6.0); HEMATOCRIT 45.6 % (41-53); HEMOGLOBIN 15.8 g/dL (13.5-17.5); LYMPHOCYTES # (AUTO) 2.3 K/uL (1.0-4.8); LYMPHOCYTES % (AUTO) 25.2 % (22.0-44.0); MEAN CORPUSCULAR HGB CONC 34.6 G/dL (31.0-37.0); MEAN CORPUSCULAR VOLUME 87 fL (80-100); MONOCYTES # (AUTO) 0.6 K/uL (0.1-1.0); NEUTROPHILS # (AUTO) 6.1 K/uL (1.8-7.7); NEUTROPHILS % (AUTO) 65.8 % (40.0-70.0); PLATELET COUNT (AUTO) 311 K/uL (150-450); RED BLOOD CELL COUNT(AUTO) 5.25 MIL/uL (4.50-5.90); RED CELL DISTRIBUTION WIDTH 13.3 % (11.5-14.5)
[2019-02-15 07:41] LABS: ALANINE AMINOTRANSFERASE 42 U/L (12-78); ALBUMIN 3.8 g/dL (3.4-5.0); ALKALINE PHOSPHATASE 77 U/L (46-116); ANION GAP 11 mmol/L (8-16); ASPARTATE AMINOTRANSFERASE 20 U/L (15-37); BILIRUBIN,TOTAL 0.5 mg/dL (0.1-1.0); CALCIUM, TOTAL 8.5 mg/dL (8.8-10.5); CARBON DIOXIDE 24 mmol/L (22-29); CHLORIDE 103 mmol/L (98-107); CHOL/HDL RATIO 4.5 (4.2-7.3); CHOLESTEROL 154 mg/dL (131-200); FREE T4 (FREE THYROXINE) 1.45 ng/dL (0.76-1.46); GLOMERULAR FILTR. RATE CALC > 60 mL/min (>60); GLUCOSE,RANDOM 92 mg/dL (70-110); HDL CHOLESTEROL 34 mg/dL (40-60); LDL CHOL (CALC.) 102 mg/dL (0-130); POTASSIUM 3.9 mmol/L (3.5-5.1); SODIUM SERUM 138 mmol/L (136-145); THYROID STIMULATING HORMONE 0.63 uIU/mL (0.36-3.74); TOTAL PROTEIN, SERUM 7.4 g/dL (6.4-8.2); TRIGLYCERIDES 91 mg/dL (15-150); UREA NITROGEN, BLOOD 10 mg/dL (7-18)
[2019-02-15 08:18] VITALS: BP 140/86
[2019-02-15] MEDS: BuPROPion HCL XL 150 MG ER TABLET PO SCH (08:42)
[2019-02-15] MEDS: DIVALPROEX SODIUM 500 MG DR TABLET PO SCH ×2 (08:42→16:15)
[2019-02-15] MEDS: OLANZapine 10 MG TABLET PO SCH ×2 (08:42→16:16)
[2019-02-15 16:26] VITALS: BP 116/89
[2019-02-15 22:32] VITALS: BP 121/85
[2019-02-16 01:51] VITALS: BP 117/89
[2019-02-16 08:51] VITALS: BP 110/62
[2019-02-16] MEDS: OLANZapine 10 MG TABLET PO SCH ×2 (09:07→16:31)
[2019-02-16] MEDS: DIVALPROEX SODIUM 500 MG DR TABLET PO SCH ×2 (09:07→16:31)
[2019-02-16] MEDS: BuPROPion HCL XL 150 MG ER TABLET PO SCH (09:58)
[2019-02-16] MEDS: LORazepam 2 MG TABLET PO PRN ×2 (14:37→21:05)
[2019-02-16 16:04] VITALS: BP 122/84
[2019-02-16] MEDS: TraMADol HCL 50 MG TABLET PO PRN (22:51)
[2019-02-17 02:30] VITALS: BP 122/71
[2019-02-17] MEDS: OLANZapine 10 MG TABLET PO SCH ×2 (08:30→16:38)
[2019-02-17] MEDS: BuPROPion HCL XL 150 MG ER TABLET PO SCH (08:30)
[2019-02-17] MEDS: DIVALPROEX SODIUM 500 MG DR TABLET PO SCH ×2 (08:30→16:38)
[2019-02-17 08:31] VITALS: BP 131/82
[2019-02-17] MEDS: LORazepam 2 MG TABLET PO PRN ×2 (08:34→17:26)
[2019-02-17] MEDS: TraMADol HCL 50 MG TABLET PO PRN (09:46)
[2019-02-17 09:48] VITALS: BP 139/99
[2019-02-17] MEDS: ClonazePAM 1 MG TABLET PO SCH (16:37)
[2019-02-17 17:25] VITALS: BP 118/72
[2019-02-18 00:50] VITALS: BP 104/73
[2019-02-18] MEDS: ZOLPIDEM TARTRATE 10 MG TABLET PO PRN ×2 (02:51→21:43)
[2019-02-18 04:20] VITALS: BP 106/72
[2019-02-18] MEDS: TraMADol HCL 50 MG TABLET PO PRN ×3 (04:22→21:43)
[2019-02-18 08:16] VITALS: BP 130/80
[2019-02-18] MEDS: OLANZapine 10 MG TABLET PO SCH ×2 (09:36→16:24)
[2019-02-18] MEDS: ClonazePAM 1 MG TABLET PO SCH ×2 (09:36→16:24)
[2019-02-18] MEDS: BuPROPion HCL XL 150 MG ER TABLET PO SCH (09:36)
[2019-02-18] MEDS: DIVALPROEX SODIUM 500 MG DR TABLET PO SCH ×2 (09:36→16:24)
[2019-02-18 13:41] VITALS: BP 124/72
[2019-02-18 16:06] VITALS: BP 123/79
[2019-02-19 00:07] VITALS: BP 139/87
[2019-02-19 08:07] VITALS: BP 140/80
[2019-02-19] MEDS: ClonazePAM 1 MG TABLET PO SCH ×2 (08:44→16:25)
[2019-02-19] MEDS: DIVALPROEX SODIUM 500 MG DR TABLET PO SCH ×2 (08:44→16:25)
[2019-02-19] MEDS: OLANZapine 10 MG TABLET PO SCH ×2 (08:45→16:25)
[2019-02-19] MEDS: BuPROPion HCL XL 150 MG ER TABLET PO SCH (08:45)
[2019-02-19] MEDS: TraMADol HCL 50 MG TABLET PO PRN (11:23)
[2019-02-19 16:11] VITALS: BP 101/68
[2019-02-20 00:25] VITALS: BP 133/90
[2019-02-20] MEDS: ZOLPIDEM TARTRATE 10 MG TABLET PO PRN (02:11)
[2019-02-20 04:59] VITALS: BP 135/83
[2019-02-20] MEDS: TraMADol HCL 50 MG TABLET PO PRN ×2 (05:01→21:08)
[2019-02-20 08:11] VITALS: BP 139/98
[2019-02-20] MEDS: ClonazePAM 1 MG TABLET PO SCH ×2 (08:46→18:00)
[2019-02-20] MEDS: OLANZapine 10 MG TABLET PO SCH ×2 (08:46→18:00)
[2019-02-20] MEDS: BuPROPion HCL XL 150 MG ER TABLET PO SCH (08:47)
[2019-02-20] MEDS: DIVALPROEX SODIUM 500 MG DR TABLET PO SCH ×2 (08:47→18:01)
[2019-02-20 16:00] VITALS: BP 130/74
[2019-02-21 00:43] VITALS: BP 117/73
[2019-02-21 08:23] VITALS: BP 143/100
[2019-02-21] MEDS: ClonazePAM 1 MG TABLET PO SCH ×2 (08:38→16:32)
[2019-02-21] MEDS: OLANZapine 10 MG TABLET PO SCH ×2 (08:38→16:32)
[2019-02-21] MEDS: DIVALPROEX SODIUM 500 MG DR TABLET PO SCH ×2 (08:39→16:32)
[2019-02-21] MEDS: BuPROPion HCL XL 150 MG ER TABLET PO SCH (08:39)
[2019-02-21] MEDS: TraMADol HCL 50 MG TABLET PO PRN (08:39)
[2019-02-21 16:05] VITALS: BP 114/68
[2019-02-22 01:00] VITALS: BP 132/76
[2019-02-22 08:04] VITALS: BP 136/88
[2019-02-22] MEDS: BuPROPion HCL XL 150 MG ER TABLET PO SCH (08:48)
[2019-02-22] MEDS: DIVALPROEX SODIUM 500 MG DR TABLET PO SCH ×2 (08:49→16:28)
[2019-02-22] MEDS: OLANZapine 10 MG TABLET PO SCH ×2 (08:49→16:28)
[2019-02-22] MEDS: ClonazePAM 1 MG TABLET PO SCH ×2 (08:49→16:28)
[2019-02-22 11:05] VITALS: BP 134/88
[2019-02-22] MEDS: TraMADol HCL 50 MG TABLET PO PRN (11:05)
[2019-02-22 16:03] VITALS: BP 133/78
[2019-02-23 02:42] VITALS: BP 139/95
[2019-02-23 08:16] VITALS: BP 130/86
[2019-02-23] MEDS: OLANZapine 10 MG TABLET PO SCH ×2 (08:59→16:35)
[2019-02-23] MEDS: DIVALPROEX SODIUM 500 MG DR TABLET PO SCH ×2 (08:59→16:34)
[2019-02-23] MEDS: ClonazePAM 1 MG TABLET PO SCH ×2 (08:59→16:34)
[2019-02-23] MEDS: BuPROPion HCL XL 150 MG ER TABLET PO SCH (08:59)
[2019-02-23] MEDS: TraMADol HCL 50 MG TABLET PO PRN ×2 (10:15→18:03)
[2019-02-23 16:10] VITALS: BP 139/99
[2019-02-23 18:04] VITALS: BP 140/91
[2019-02-23] MEDS: NYSTATIN 15 GM POWDER BOTTLE TP SCH (21:44)
[2019-02-24 06:52] VITALS: BP 107/72
[2019-02-24] MEDS: OLANZapine 10 MG TABLET PO SCH ×2 (08:00→16:44)
[2019-02-24] MEDS: TraMADol HCL 50 MG TABLET PO PRN ×2 (08:01→17:09)
[2019-02-24] MEDS: DIVALPROEX SODIUM 500 MG DR TABLET PO SCH ×2 (08:01→16:44)
[2019-02-24] MEDS: ClonazePAM 1 MG TABLET PO SCH ×2 (08:02→16:44)
[2019-02-24] MEDS: BuPROPion HCL XL 150 MG ER TABLET PO SCH (08:02)
[2019-02-24] MEDS: NYSTATIN 15 GM POWDER BOTTLE TP SCH ×2 (08:03→16:44)
[2019-02-24 08:23] VITALS: BP 130/90
[2019-02-24 16:05] VITALS: BP 132/88
[2019-02-24 17:10] VITALS: BP 125/82
[2019-02-25 01:25] VITALS: BP 125/78
[2019-02-25] MEDS: ZOLPIDEM TARTRATE 10 MG TABLET PO PRN (01:27)
[2019-02-25 08:06] VITALS: BP 130/76
[2019-02-25] MEDS: ClonazePAM 1 MG TABLET PO SCH (09:34)
[2019-02-25] MEDS: BuPROPion HCL XL 150 MG ER TABLET PO SCH (09:34)
[2019-02-25] MEDS: DIVALPROEX SODIUM 500 MG DR TABLET PO SCH (09:34)
[2019-02-25] MEDS: OLANZapine 10 MG TABLET PO SCH (09:34)
[2019-02-25] MEDS: NYSTATIN 15 GM POWDER BOTTLE TP SCH (09:36)
[2019-02-25] MEDS: IBUPROFEN 600 MG TABLET PO PRN (09:54)
[2019-02-25] MEDS ORDERED: DIVA-78 PO (11:49)
[2019-02-25] MEDS ORDERED: OLAN7.5T2 PO (11:49)
[2019-02-25] MEDS ORDERED: CLON1TAB13 PO (11:52)
== END 2019-02-25 13:55 | disposition home or self-care (01) | DRG 885 ==
LOC: B2X 03:58
PROVIDERS: ADMIT Psychiatry & Neurology Psychiatry; ATTEND Psychiatry & Neurology Psychiatry
DX: F20.0 Paranoid schizophrenia (principal); K86.1 Other chronic pancreatitis; F94.0 Selective mutism; I10 Essential (primary) hypertension; Z72.0 Tobacco use; Z91.14 Patient's other noncompliance with medication regimen; Z53.20 Procedure and treatment not carried out because of patient's decision for unspecified reasons
CPT/HCPCS: 84439; 84443

== ENCOUNTER 2019-04-01 15:56 | Inpatient (IN) | payer MEDICARE, MEDICAID ==
[~2019-04-01] VITALS: Ht 172.7 cm; Wt 104.3 kg
[~2019-04-01 15:56] MED LIST changes: +CLON1TAB13 PO; -OLAN20TA2 PO; +OLAN7.5T2 PO
[2019-04-01 17:38] VITALS: BP 135/86
[2019-04-01] MEDS: LORazepam 2 MG TABLET PO PRN (19:25)
[2019-04-01 20:25] VITALS: BP 137/92
[2019-04-01] MEDS: IBUPROFEN 600 MG TABLET PO PRN (20:31)
[2019-04-02] MEDS: LORazepam 2 MG TABLET PO PRN ×4 (02:29→18:06)
[2019-04-02] MEDS: ZOLPIDEM TARTRATE 10 MG TABLET PO PRN ×2 (02:29→20:31)
[2019-04-02 02:40] VITALS: BP 142/97
[2019-04-02 08:26] VITALS: BP 140/90
[2019-04-02 08:42] LABS: BASOPHILS % (AUTO) 0.4 % (0.0-2.0); EOSINOPHILS % (AUTO) 1.2 % (1.0-6.0); LYMPHOCYTES # (AUTO) 2.7 K/uL (1.0-4.8); LYMPHOCYTES % (AUTO) 44.9 % (22.0-44.0); MEAN CORPUSCULAR HEMOGLOBIN 30.1 pg (26.0-34.0); MEAN CORPUSCULAR HGB CONC 34.1 G/dL (31.0-37.0); MEAN CORPUSCULAR VOLUME 89 fL (80-100); MONOCYTES # (AUTO) 0.6 K/uL (0.1-1.0); MONOCYTES % (AUTO) 10.2 % (2.0-9.0); NEUTROPHILS # (AUTO) 2.6 K/uL (1.8-7.7); NEUTROPHILS % (AUTO) 43.3 % (40.0-70.0); PLATELET COUNT (AUTO) 274 K/uL (150-450); RED BLOOD CELL COUNT(AUTO) 5.31 MIL/uL (4.50-5.90); RED CELL DISTRIBUTION WIDTH 13.5 % (11.5-14.5)
[2019-04-02 09:10] LABS: HEMOGLOBIN A1C 5.5 % (4.5-6.2)
[2019-04-02] MEDS: OSELTAMIVIR PHOSPHATE 75 MG CAPSULE PO SCH ×2 (09:12→20:31)
[2019-04-02 09:21] LABS: ALANINE AMINOTRANSFERASE 51 U/L (12-78); ALBUMIN 3.5 g/dL (3.4-5.0); ALKALINE PHOSPHATASE 90 U/L (46-116); ANION GAP 8 mmol/L (8-16); ASPARTATE AMINOTRANSFERASE 23 U/L (15-37); BILIRUBIN,TOTAL 0.6 mg/dL (0.1-1.0); CALCIUM, TOTAL 8.7 mg/dL (8.8-10.5); CARBON DIOXIDE 27 mmol/L (22-29); CHLORIDE 104 mmol/L (98-107); CHOL/HDL RATIO 5.3 (4.2-7.3); CHOLESTEROL 137 mg/dL (131-200); CREATININE 0.89 mg/dL (0.60-1.30); FREE T4 (FREE THYROXINE) 1.19 ng/dL (0.76-1.46); GLOMERULAR FILTR. RATE CALC > 60 mL/min (>60); GLUCOSE,RANDOM 90 mg/dL (70-110); HDL CHOLESTEROL 26 mg/dL (40-60); LDL CHOL (CALC.) 87 mg/dL (0-130); POTASSIUM 4.3 mmol/L (3.5-5.1); SODIUM SERUM 139 mmol/L (136-145); THYROID STIMULATING HORMONE 0.67 uIU/mL (0.36-3.74); TOTAL PROTEIN, SERUM 6.7 g/dL (6.4-8.2); TRIGLYCERIDES 122 mg/dL (15-150); UREA NITROGEN, BLOOD 13 mg/dL (7-18)
[2019-04-02] MEDS: BuPROPion HCL XL 150 MG ER TABLET PO SCH (12:01)
[2019-04-02] MEDS ORDERED: ALBUTEROL SULFATE HFA 90 MCG/PUFF 8 GM INHALER IH PRN (14:00)
[2019-04-02] MEDS ORDERED: LOPERAMIDE HCL 2 MG CAPSULE PO PRN (14:00)
[2019-04-02] MEDS ORDERED: ACETAMINOPHEN 325 MG TABLET PO PRN (14:00)
[2019-04-02] MEDS ORDERED: IBUPROFEN 600 MG TABLET PO PRN (14:00)
[2019-04-02] MEDS ORDERED: ONDANSETRON HCL 4 MG TABLET PO PRN (14:00)
[2019-04-02] MEDS ORDERED: PETROLATUM,WHITE 28 GM JELLY TP PRN (14:00)
[2019-04-02] MEDS ORDERED: MAGNESIUM HYDROXIDE SUSPENSION 30 ML UDCUP PO PRN (14:00)
[2019-04-02] MEDS ORDERED: MAG HYDROX/AL HYDROX/SIMETH ES 30 ML SUSPENSION UDCUP PO PRN (14:00)
[2019-04-02] MEDS ORDERED: BACITRACIN 28.4 GM OINTMENT TP PRN (14:00)
[2019-04-02] MEDS ORDERED: BENZOCAINE/MENTHOL LOZENGE MM PRN (14:00)
[2019-04-02] MEDS ORDERED: CloNIDine HCL 0.1 MG TABLET PO PRN (14:00)
[2019-04-02 14:08] VITALS: BP 139/85
[2019-04-02 16:19] VITALS: BP 131/79
[2019-04-02] MEDS: DIVALPROEX SODIUM 500 MG DR TABLET PO SCH (16:28)
[2019-04-02] MEDS: ClonazePAM 0.5 MG TABLET PO SCH (16:28)
[2019-04-02] MEDS: OLANZapine 7.5 MG TABLET PO SCH (16:28)
[2019-04-02 18:08] VITALS: BP 145/82
[2019-04-03 00:57] VITALS: BP 116/74
[2019-04-03] MEDS: LORazepam 2 MG TABLET PO PRN ×3 (03:07→21:23)
[2019-04-03 08:17] VITALS: BP 140/68
[2019-04-03] MEDS: OMEPRAZOLE 20 MG CAPSULE PO SCH (09:35)
[2019-04-03] MEDS: DIVALPROEX SODIUM 500 MG DR TABLET PO SCH ×2 (09:35→17:28)
[2019-04-03] MEDS: ClonazePAM 0.5 MG TABLET PO SCH ×2 (09:35→17:26)
[2019-04-03] MEDS: BuPROPion HCL XL 150 MG ER TABLET PO SCH (09:36)
[2019-04-03] MEDS: DOCUSATE SODIUM 100 MG CAPSULE PO SCH (09:36)
[2019-04-03] MEDS: OLANZapine 7.5 MG TABLET PO SCH ×2 (09:36→17:27)
[2019-04-03] MEDS: OSELTAMIVIR PHOSPHATE 75 MG CAPSULE PO SCH ×2 (09:36→20:48)
[2019-04-03 16:42] VITALS: BP 131/74
[2019-04-03] MEDS: ZOLPIDEM TARTRATE 10 MG TABLET PO PRN (20:48)
[2019-04-04 01:29] VITALS: BP 100/90
[2019-04-04] MEDS: LORazepam 2 MG TABLET PO PRN ×5 (01:49→23:37)
[2019-04-04] MEDS: DOCUSATE SODIUM 100 MG CAPSULE PO SCH (08:15)
[2019-04-04] MEDS: BuPROPion HCL XL 150 MG ER TABLET PO SCH (08:15)
[2019-04-04] MEDS: ClonazePAM 0.5 MG TABLET PO SCH ×2 (08:15→16:41)
[2019-04-04] MEDS: OLANZapine 7.5 MG TABLET PO SCH ×2 (08:15→16:41)
[2019-04-04] MEDS: OMEPRAZOLE 20 MG CAPSULE PO SCH (08:15)
[2019-04-04] MEDS: DIVALPROEX SODIUM 500 MG DR TABLET PO SCH ×2 (08:15→16:41)
[2019-04-04 09:56] VITALS: BP 138/90
[2019-04-04] MEDS: IBUPROFEN 600 MG TABLET PO PRN (16:41)
[2019-04-04 16:42] VITALS: BP 135/90
[2019-04-04] MEDS: ZOLPIDEM TARTRATE 10 MG TABLET PO PRN (22:37)
[2019-04-05] MEDS: LORazepam 2 MG TABLET PO PRN ×2 (01:50→21:39)
[2019-04-05 01:55] VITALS: BP 121/83
[2019-04-05] MEDS: HALOPERIDOL 5 MG TABLET PO PRN (02:16)
[2019-04-05 08:19] VITALS: BP 120/84
[2019-04-05] MEDS: DOCUSATE SODIUM 100 MG CAPSULE PO SCH (09:11)
[2019-04-05] MEDS: ClonazePAM 0.5 MG TABLET PO SCH ×2 (09:11→16:33)
[2019-04-05] MEDS: OMEPRAZOLE 20 MG CAPSULE PO SCH (09:11)
[2019-04-05] MEDS: BuPROPion HCL XL 150 MG ER TABLET PO SCH (09:11)
[2019-04-05] MEDS: DIVALPROEX SODIUM 500 MG DR TABLET PO SCH ×2 (09:12→16:34)
[2019-04-05] MEDS: LISINOPRIL 10 MG TABLET PO SCH (09:12)
[2019-04-05] MEDS: OLANZapine 7.5 MG TABLET PO SCH ×2 (09:12→16:34)
[2019-04-05 16:13] VITALS: BP 113/64
[2019-04-06 01:50] VITALS: BP 109/69
[2019-04-06] MEDS: ZOLPIDEM TARTRATE 10 MG TABLET PO PRN ×2 (01:51→22:49)
[2019-04-06] MEDS: DIVALPROEX SODIUM 500 MG DR TABLET PO SCH ×2 (08:44→16:42)
[2019-04-06] MEDS: DOCUSATE SODIUM 100 MG CAPSULE PO SCH (08:44)
[2019-04-06] MEDS: BuPROPion HCL XL 150 MG ER TABLET PO SCH (08:44)
[2019-04-06] MEDS: ClonazePAM 0.5 MG TABLET PO SCH ×2 (08:44→16:42)
[2019-04-06] MEDS: OLANZapine 7.5 MG TABLET PO SCH ×2 (08:44→16:43)
[2019-04-06] MEDS: LISINOPRIL 10 MG TABLET PO SCH (08:44)
[2019-04-06] MEDS: OMEPRAZOLE 20 MG CAPSULE PO SCH (08:44)
[2019-04-06 08:47] VITALS: BP 111/65
[2019-04-06] MEDS ORDERED: CLON.5 PO (12:46)
[2019-04-06] MEDS ORDERED: DOCU100C33 PO (12:47)
[2019-04-06] MEDS ORDERED: OMEP20 PO (12:49)
[2019-04-06] MEDS ORDERED: LISI-661 PO (12:50)
[2019-04-06 16:12] VITALS: BP 118/70
[2019-04-06] MEDS: LORazepam 2 MG TABLET PO PRN (20:16)
[2019-04-07 00:40] VITALS: BP 135/85
[2019-04-07] MEDS: LORazepam 2 MG TABLET PO PRN (00:41)
[2019-04-07 01:50] VITALS: BP 125/80
[2019-04-07] MEDS: HALOPERIDOL 5 MG TABLET PO PRN (01:52)
[2019-04-07 08:23] VITALS: BP 125/84
[2019-04-07] MEDS: DOCUSATE SODIUM 100 MG CAPSULE PO SCH (08:31)
[2019-04-07] MEDS: OMEPRAZOLE 20 MG CAPSULE PO SCH (08:31)
[2019-04-07] MEDS: ClonazePAM 0.5 MG TABLET PO SCH (08:32)
[2019-04-07] MEDS: BuPROPion HCL XL 150 MG ER TABLET PO SCH (08:32)
[2019-04-07] MEDS: LISINOPRIL 10 MG TABLET PO SCH (08:32)
[2019-04-07] MEDS: DIVALPROEX SODIUM 500 MG DR TABLET PO SCH (08:32)
[2019-04-07] MEDS: OLANZapine 7.5 MG TABLET PO SCH (08:33)
[2019-04-07] MEDS ORDERED: BUPR100 PO (10:22)
[2019-04-07] MEDS ORDERED: LISI-661 PO (10:22)
== END 2019-04-07 13:30 | disposition home or self-care (01) | DRG 885 ==
LOC: B2X 17:37
PROVIDERS: ADMIT Psychiatry & Neurology Psychiatry; ATTEND Psychiatry & Neurology Psychiatry
DX: F25.9 Schizoaffective disorder, unspecified (principal); R45.851 Suicidal ideations; F17.200 Nicotine dependence, unspecified, uncomplicated; F10.10 Alcohol abuse, uncomplicated; F22 Delusional disorders; E66.9 Obesity, unspecified; I10 Essential (primary) hypertension; F41.9 Anxiety disorder, unspecified; G47.00 Insomnia, unspecified
CPT/HCPCS: 83036; 84439; 84443

== ENCOUNTER 2019-04-14 23:42 | Inpatient (IN) | payer MEDICARE, MEDICAID ==
[~2019-04-14] VITALS: Ht 170.2 cm; Wt 105.7 kg
[~2019-04-14 23:42] MED LIST changes: -BUPR-93 PO; +BUPR100 PO; +CLON.5 PO; -CLON1TAB13 PO; +DOCU100C33 PO; +LISI-661 PO; +OMEP20 PO
[2019-04-15] MEDS ORDERED: LORazepam 1 MG TABLET PO PRN (02:00)
[2019-04-15] MEDS ORDERED: HALOPERIDOL 5 MG TABLET PO PRN (02:00)
[2019-04-15 03:59] VITALS: BP 117/85
[2019-04-15 08:19] VITALS: BP 140/69
[2019-04-15] MEDS: OMEPRAZOLE 20 MG CAPSULE PO SCH (09:11)
[2019-04-15] MEDS: DOCUSATE SODIUM 100 MG CAPSULE PO SCH (09:11)
[2019-04-15] MEDS: LISINOPRIL 10 MG TABLET PO SCH (09:11)
[2019-04-15] MEDS ORDERED: PETROLATUM,WHITE 28 GM JELLY TP PRN (11:30)
[2019-04-15] MEDS ORDERED: ACETAMINOPHEN 325 MG TABLET PO PRN (11:30)
[2019-04-15] MEDS ORDERED: MAG HYDROX/AL HYDROX/SIMETH ES 30 ML SUSPENSION UDCUP PO PRN (11:30)
[2019-04-15] MEDS ORDERED: LOPERAMIDE HCL 2 MG CAPSULE PO PRN (11:30)
[2019-04-15] MEDS ORDERED: NICOTINE 14 MG/24 HOUR PATCH TD PRN (11:30)
[2019-04-15] MEDS ORDERED: DOCUSATE SODIUM 100 MG CAPSULE PO PRN (11:30)
[2019-04-15] MEDS ORDERED: ONDANSETRON HCL 4 MG TABLET PO PRN (11:30)
[2019-04-15] MEDS ORDERED: ALBUTEROL SULFATE HFA 90 MCG/PUFF 8 GM INHALER IH PRN (11:30)
[2019-04-15] MEDS ORDERED: CloNIDine HCL 0.1 MG TABLET PO PRN (11:30)
[2019-04-15] MEDS ORDERED: GuaiFENesin/D-METHORPHAN [SUGAR-FREE] 200-20MG/10 ML SYRUP UDCUP PO PRN (11:30)
[2019-04-15] MEDS ORDERED: MAGNESIUM HYDROXIDE SUSPENSION 30 ML UDCUP PO PRN (11:30)
[2019-04-15 16:02] VITALS: BP 139/86
[2019-04-15] MEDS: OLANZapine 7.5 MG TABLET PO SCH (16:31)
[2019-04-15] MEDS: DIVALPROEX SODIUM 500 MG ER TABLET PO SCH (16:31)
[2019-04-16 00:12] VITALS: BP 140/89
[2019-04-16 07:56] LABS: BASOPHILS % (AUTO) 0.5 % (0.0-2.0); EOSINOPHILS % (AUTO) 1.8 % (1.0-6.0); HEMATOCRIT 46.9 % (41-53); HEMOGLOBIN 15.9 g/dL (13.5-17.5); LYMPHOCYTES % (AUTO) 33.6 % (22.0-44.0); MEAN CORPUSCULAR HEMOGLOBIN 30.2 pg (26.0-34.0); MEAN CORPUSCULAR VOLUME 89 fL (80-100); MONOCYTES # (AUTO) 1.2 K/uL (0.1-1.0); MONOCYTES % (AUTO) 10.4 % (2.0-9.0); NEUTROPHILS # (AUTO) 6.4 K/uL (1.8-7.7); NEUTROPHILS % (AUTO) 53.7 % (40.0-70.0); PLATELET COUNT (AUTO) 283 K/uL (150-450); RED BLOOD CELL COUNT(AUTO) 5.28 MIL/uL (4.50-5.90); RED CELL DISTRIBUTION WIDTH 13.9 % (11.5-14.5)
[2019-04-16] MEDS: DOCUSATE SODIUM 100 MG CAPSULE PO SCH (08:04)
[2019-04-16] MEDS: OLANZapine 7.5 MG TABLET PO SCH ×2 (08:04→16:34)
[2019-04-16] MEDS: LISINOPRIL 10 MG TABLET PO SCH (08:04)
[2019-04-16] MEDS: OMEPRAZOLE 20 MG CAPSULE PO SCH (08:04)
[2019-04-16] MEDS: BuPROPion HCL XL 150 MG ER TABLET PO SCH (08:05)
[2019-04-16] MEDS: DIVALPROEX SODIUM 500 MG ER TABLET PO SCH ×2 (08:05→16:34)
[2019-04-16 08:08] VITALS: BP 115/65
[2019-04-16 08:50] LABS: HEMOGLOBIN A1C 5.6 % (4.5-6.2)
[2019-04-16 08:57] VITALS: BP 115/65
[2019-04-16] MEDS: IBUPROFEN 400 MG TABLET PO PRN (08:57)
[2019-04-16] MEDS ORDERED: OMEPRAZOLE 20 MG CAPSULE PO SCH (09:00)
[2019-04-16] MEDS ORDERED: LISINOPRIL 10 MG TABLET PO SCH (09:00)
[2019-04-16 09:01] LABS: ALANINE AMINOTRANSFERASE 55 U/L (12-78); ALBUMIN 3.4 g/dL (3.4-5.0); ALKALINE PHOSPHATASE 74 U/L (46-116); ANION GAP 10 mmol/L (8-16); ASPARTATE AMINOTRANSFERASE 22 U/L (15-37); BILIRUBIN,TOTAL 0.4 mg/dL (0.1-1.0); CARBON DIOXIDE 24 mmol/L (22-29); CHLORIDE 108 mmol/L (98-107); CHOLESTEROL 174 mg/dL (131-200); CREATININE 0.96 mg/dL (0.60-1.30); GLOMERULAR FILTR. RATE CALC > 60 mL/min (>60); GLUCOSE,RANDOM 88 mg/dL (70-110); HDL CHOLESTEROL 25 mg/dL (40-60); LDL CHOL (CALC.) 104 mg/dL (0-130); POTASSIUM 4.7 mmol/L (3.5-5.1); SODIUM SERUM 142 mmol/L (136-145); THYROID STIMULATING HORMONE 0.55 uIU/mL (0.36-3.74); TRIGLYCERIDES 226 mg/dL (15-150); UREA NITROGEN, BLOOD 0 mg/dL (7-18)
[2019-04-16 09:19] LABS: TOTAL PROTEIN, SERUM 6.4 g/dL (6.4-8.2)
[2019-04-16 16:07] VITALS: BP 112/60
[2019-04-16] MEDS: ZOLPIDEM TARTRATE 10 MG TABLET PO PRN (23:54)
[2019-04-17 01:25] VITALS: BP 106/62
[2019-04-17] MEDS: IBUPROFEN 400 MG TABLET PO PRN (01:33)
[2019-04-17 08:05] LABS: APPEARANCE,URINE CLEAR (CLEAR); BILIRUBIN,URINE NEGATIVE (NEGATIVE); GLUCOSE, URINE (UA) NEGATIVE (NEGATIVE); KETONES,URINE NEGATIVE (NEGATIVE); LEUKOCYTE ESTERASE ,URINE NEGATIVE (NEGATIVE); NITRATE,URINE NEGATIVE (NEGATIVE); OCCULT BLOOD,URINE NEGATIVE (NEGATIVE); PH,URINE 5.5 (5.0-8.0); PROTEIN,URINE NEGATIVE (NEGATIVE); UROBILINOGEN,URINE 0.2 mg/dL (<=1.0)
[2019-04-17 08:12] LABS: AMPHET/METH SCREEN,URINE POSITIVE (NEGATIVE); BARBITURATE SCREEN, URINE NEGATIVE (NEGATIVE); BENZODIAZEPINES SCREEN,URINE NEGATIVE (NEGATIVE); CANNABINOID SCREEN,URINE POSITIVE (NEGATIVE); COCAINE SCREEN,URINE NEGATIVE (NEGATIVE); METHADONE SCREEN, URINE NEGATIVE (NEGATIVE); OPIATE SCREEN,URINE NEGATIVE (NEGATIVE)
[2019-04-17 08:13] LABS: PHENCYCLIDINE SCREEN,URINE NEGATIVE (NEGATIVE)
[2019-04-17 08:14] VITALS: BP 133/75
[2019-04-17] MEDS: DIVALPROEX SODIUM 500 MG ER TABLET PO SCH ×2 (08:14→16:48)
[2019-04-17] MEDS: OMEPRAZOLE 20 MG CAPSULE PO SCH (08:15)
[2019-04-17] MEDS: DOCUSATE SODIUM 100 MG CAPSULE PO SCH (08:15)
[2019-04-17] MEDS: LISINOPRIL 10 MG TABLET PO SCH (08:15)
[2019-04-17] MEDS: BuPROPion HCL XL 150 MG ER TABLET PO SCH (08:15)
[2019-04-17] MEDS: OLANZapine 7.5 MG TABLET PO SCH ×2 (08:15→16:49)
[2019-04-17 16:03] VITALS: BP 107/63
[2019-04-17] MEDS: ZOLPIDEM TARTRATE 10 MG TABLET PO PRN (22:03)
[2019-04-18 04:16] VITALS: BP 117/69
[2019-04-18] MEDS: IBUPROFEN 400 MG TABLET PO PRN (04:19)
[2019-04-18 08:05] VITALS: BP 127/81
[2019-04-18] MEDS: OMEPRAZOLE 20 MG CAPSULE PO SCH (08:36)
[2019-04-18] MEDS: DOCUSATE SODIUM 100 MG CAPSULE PO SCH (08:36)
[2019-04-18] MEDS: DIVALPROEX SODIUM 500 MG ER TABLET PO SCH ×2 (08:36→16:23)
[2019-04-18] MEDS: LISINOPRIL 10 MG TABLET PO SCH (08:37)
[2019-04-18] MEDS: OLANZapine 7.5 MG TABLET PO SCH ×2 (08:37→16:23)
[2019-04-18] MEDS: BuPROPion HCL XL 150 MG ER TABLET PO SCH (08:37)
[2019-04-18 16:07] VITALS: BP 108/62
[2019-04-19 00:30] VITALS: BP 122/70
[2019-04-19] MEDS: ZOLPIDEM TARTRATE 10 MG TABLET PO PRN (00:31)
[2019-04-19 08:12] VITALS: BP 123/67
[2019-04-19] MEDS: DIVALPROEX SODIUM 500 MG ER TABLET PO SCH ×2 (08:18→16:31)
[2019-04-19] MEDS: BuPROPion HCL XL 150 MG ER TABLET PO SCH (08:19)
[2019-04-19] MEDS: LISINOPRIL 10 MG TABLET PO SCH (08:19)
[2019-04-19] MEDS: DOCUSATE SODIUM 100 MG CAPSULE PO SCH (08:19)
[2019-04-19] MEDS: OMEPRAZOLE 20 MG CAPSULE PO SCH (08:19)
[2019-04-19] MEDS: OLANZapine 7.5 MG TABLET PO SCH ×2 (08:19→16:32)
[2019-04-19 16:39] VITALS: BP 124/72
[2019-04-20 00:53] VITALS: BP 126/86
[2019-04-20] MEDS: ZOLPIDEM TARTRATE 10 MG TABLET PO PRN (02:13)
[2019-04-20 08:11] VITALS: BP 107/69
[2019-04-20] MEDS: OLANZapine 7.5 MG TABLET PO SCH ×2 (08:33→16:31)
[2019-04-20] MEDS: OMEPRAZOLE 20 MG CAPSULE PO SCH (08:33)
[2019-04-20] MEDS: DIVALPROEX SODIUM 500 MG ER TABLET PO SCH ×2 (08:33→16:31)
[2019-04-20] MEDS: DOCUSATE SODIUM 100 MG CAPSULE PO SCH (08:34)
[2019-04-20] MEDS: BuPROPion HCL XL 150 MG ER TABLET PO SCH (08:34)
[2019-04-20] MEDS: LISINOPRIL 10 MG TABLET PO SCH (08:34)
[2019-04-20 16:19] VITALS: BP 113/72
[2019-04-21 01:30] VITALS: BP 111/72
[2019-04-21] MEDS: ZOLPIDEM TARTRATE 10 MG TABLET PO PRN ×2 (02:45→02:46)
[2019-04-21 03:44] VITALS: BP 110/71
[2019-04-21] MEDS: IBUPROFEN 400 MG TABLET PO PRN (03:46)
[2019-04-21 08:07] LABS: BASOPHILS % (AUTO) 0.3 % (0.0-2.0); EOSINOPHILS % (AUTO) 0.7 % (1.0-6.0); HEMOGLOBIN 15.8 g/dL (13.5-17.5); LYMPHOCYTES # (AUTO) 2.9 K/uL (1.0-4.8); LYMPHOCYTES % (AUTO) 25.9 % (22.0-44.0); MEAN CORPUSCULAR HEMOGLOBIN 30.7 pg (26.0-34.0); MEAN CORPUSCULAR HGB CONC 34.3 G/dL (31.0-37.0); MEAN CORPUSCULAR VOLUME 90 fL (80-100); MONOCYTES # (AUTO) 1.2 K/uL (0.1-1.0); MONOCYTES % (AUTO) 11.3 % (2.0-9.0); NEUTROPHILS # (AUTO) 6.8 K/uL (1.8-7.7); NEUTROPHILS % (AUTO) 61.8 % (40.0-70.0); PLATELET COUNT (AUTO) 311 K/uL (150-450); RED BLOOD CELL COUNT(AUTO) 5.13 MIL/uL (4.50-5.90)
[2019-04-21 08:24] VITALS: BP 131/76
[2019-04-21] MEDS: DOCUSATE SODIUM 100 MG CAPSULE PO SCH (08:49)
[2019-04-21] MEDS: LISINOPRIL 10 MG TABLET PO SCH (08:49)
[2019-04-21] MEDS: BuPROPion HCL XL 150 MG ER TABLET PO SCH (08:49)
[2019-04-21] MEDS: OLANZapine 7.5 MG TABLET PO SCH ×2 (08:49→16:30)
[2019-04-21] MEDS: DIVALPROEX SODIUM 500 MG ER TABLET PO SCH ×2 (08:49→16:30)
[2019-04-21] MEDS: OMEPRAZOLE 20 MG CAPSULE PO SCH (08:49)
[2019-04-21 16:12] VITALS: BP 100/65
[2019-04-22 00:37] VITALS: BP 116/74
[2019-04-22 08:06] VITALS: BP 132/81
[2019-04-22] MEDS: DIVALPROEX SODIUM 500 MG ER TABLET PO SCH ×2 (08:25→16:27)
[2019-04-22] MEDS: OLANZapine 7.5 MG TABLET PO SCH ×2 (08:25→16:27)
[2019-04-22] MEDS: BuPROPion HCL XL 150 MG ER TABLET PO SCH (08:25)
[2019-04-22] MEDS: OMEPRAZOLE 20 MG CAPSULE PO SCH (08:25)
[2019-04-22] MEDS: LISINOPRIL 10 MG TABLET PO SCH (08:26)
[2019-04-22] MEDS: DOCUSATE SODIUM 100 MG CAPSULE PO SCH (08:26)
[2019-04-22 16:36] VITALS: BP 110/70
[2019-04-23 00:57] VITALS: BP 111/61
[2019-04-23 08:01] LABS: BASOPHILS % (AUTO) 0.5 % (0.0-2.0); EOSINOPHILS % (AUTO) 0.9 % (1.0-6.0); HEMATOCRIT 49.5 % (41-53); HEMOGLOBIN 16.7 g/dL (13.5-17.5); LYMPHOCYTES # (AUTO) 2.9 K/uL (1.0-4.8); LYMPHOCYTES % (AUTO) 27.7 % (22.0-44.0); MEAN CORPUSCULAR HEMOGLOBIN 30.1 pg (26.0-34.0); MEAN CORPUSCULAR HGB CONC 33.6 G/dL (31.0-37.0); MEAN CORPUSCULAR VOLUME 89 fL (80-100); NEUTROPHILS # (AUTO) 6.3 K/uL (1.8-7.7); NEUTROPHILS % (AUTO) 60.9 % (40.0-70.0); PLATELET COUNT (AUTO) 299 K/uL (150-450); RED BLOOD CELL COUNT(AUTO) 5.54 MIL/uL (4.50-5.90); RED CELL DISTRIBUTION WIDTH 14.2 % (11.5-14.5)
[2019-04-23] MEDS: DIVALPROEX SODIUM 500 MG ER TABLET PO SCH ×2 (08:17→16:37)
[2019-04-23] MEDS: BuPROPion HCL XL 150 MG ER TABLET PO SCH (08:17)
[2019-04-23] MEDS: OLANZapine 7.5 MG TABLET PO SCH ×2 (08:17→16:37)
[2019-04-23] MEDS: OMEGA-3/DHA/EPA/FISH OIL 1,000 MG CAPSULE PO SCH (08:17)
[2019-04-23] MEDS: OMEPRAZOLE 20 MG CAPSULE PO SCH (08:17)
[2019-04-23] MEDS: MULTIVITAMINS WITH IRON TABLET PO SCH (08:21)
[2019-04-23] MEDS: DOCUSATE SODIUM 100 MG CAPSULE PO SCH (08:21)
[2019-04-23 08:33] VITALS: BP 129/76
[2019-04-23] MEDS: LISINOPRIL 10 MG TABLET PO SCH (09:00)
[2019-04-23 14:36] VITALS: BP 121/75
[2019-04-23] MEDS: IBUPROFEN 400 MG TABLET PO PRN (14:36)
[2019-04-23 16:08] VITALS: BP 116/73
[2019-04-24 00:27] VITALS: BP 116/66
[2019-04-24 08:09] VITALS: BP 152/85
[2019-04-24] MEDS: MULTIVITAMINS WITH IRON TABLET PO SCH (08:11)
[2019-04-24] MEDS: BuPROPion HCL XL 150 MG ER TABLET PO SCH (08:11)
[2019-04-24] MEDS: OLANZapine 7.5 MG TABLET PO SCH (08:11)
[2019-04-24] MEDS: OMEGA-3/DHA/EPA/FISH OIL 1,000 MG CAPSULE PO SCH (08:11)
[2019-04-24] MEDS: DOCUSATE SODIUM 100 MG CAPSULE PO SCH (08:11)
[2019-04-24] MEDS: DIVALPROEX SODIUM 500 MG ER TABLET PO SCH (08:11)
[2019-04-24] MEDS: LISINOPRIL 10 MG TABLET PO SCH (08:11)
[2019-04-24] MEDS: OMEPRAZOLE 20 MG CAPSULE PO SCH (08:14)
[2019-04-24] MEDS ORDERED: DIVA500T52 PO (10:42)
[2019-04-24] MEDS ORDERED: BUPR-93 PO (10:45)
== END 2019-04-24 13:25 | disposition home or self-care (01) | DRG 885 ==
LOC: B2X 04-15 01:45
PROVIDERS: ADMIT Psychiatry & Neurology Psychiatry; ATTEND Psychiatry & Neurology Psychiatry
DX: F25.9 Schizoaffective disorder, unspecified (principal); K86.1 Other chronic pancreatitis; R45.851 Suicidal ideations; I10 Essential (primary) hypertension; K59.00 Constipation, unspecified; K21.9 Gastro-esophageal reflux disease without esophagitis; F17.200 Nicotine dependence, unspecified, uncomplicated; F10.10 Alcohol abuse, uncomplicated; D72.829 Elevated white blood cell count, unspecified; F41.9 Anxiety disorder, unspecified
CPT/HCPCS: 80307; 83036; 84439; 84443; 87081

== ENCOUNTER 2019-05-13 02:27 | Inpatient (IN) | payer MEDICARE, MEDICAID ==
[~2019-05-13] VITALS: Ht 170.2 cm; Wt 103.9 kg
[~2019-05-13 02:27] MED LIST changes: +BUPR-93 PO; -BUPR100 PO; -CLON.5 PO; -DIVA-78 PO; +DIVA500T52 PO; -DOCU100C33 PO; -OMEP20 PO
[2019-05-13 03:12] LABS: BASOPHILS % (AUTO) 0.8 % (0.0-2.0); EOSINOPHILS % (AUTO) 1.8 % (1.0-6.0); HEMATOCRIT 47.3 % (41-53); HEMOGLOBIN 16.2 g/dL (13.5-17.5); LYMPHOCYTES # (AUTO) 3.7 K/uL (1.0-4.8); LYMPHOCYTES % (AUTO) 31.4 % (22.0-44.0); MEAN CORPUSCULAR HEMOGLOBIN 30.5 pg (26.0-34.0); MEAN CORPUSCULAR HGB CONC 34.3 G/dL (31.0-37.0); MEAN CORPUSCULAR VOLUME 89 fL (80-100); MONOCYTES # (AUTO) 0.9 K/uL (0.1-1.0); MONOCYTES % (AUTO) 7.6 % (2.0-9.0); NEUTROPHILS # (AUTO) 6.8 K/uL (1.8-7.7); NEUTROPHILS % (AUTO) 58.4 % (40.0-70.0); PLATELET COUNT (AUTO) 306 K/uL (150-450); RED BLOOD CELL COUNT(AUTO) 5.33 MIL/uL (4.50-5.90); RED CELL DISTRIBUTION WIDTH 14.6 % (11.5-14.5)
[2019-05-13 03:17] LABS: ANION GAP 12 mmol/L (8-16); CALCIUM, TOTAL 9.4 mg/dL (8.8-10.5); CARBON DIOXIDE 23 mmol/L (22-29); CHLORIDE 102 mmol/L (98-107); CREATININE 0.96 mg/dL (0.60-1.30); GLOMERULAR FILTR. RATE CALC > 60 mL/min (>60); GLUCOSE,RANDOM 98 mg/dL (70-110); POTASSIUM 3.8 mmol/L (3.5-5.1); SODIUM SERUM 137 mmol/L (136-145); UREA NITROGEN, BLOOD 15 mg/dL (7-18)
[2019-05-13 03:23] LABS: ALANINE AMINOTRANSFERASE 44 U/L (12-78); ALBUMIN 4.2 g/dL (3.4-5.0); ALKALINE PHOSPHATASE 85 U/L (46-116); ASPARTATE AMINOTRANSFERASE 24 U/L (15-37); BILIRUBIN,TOTAL 0.5 mg/dL (0.1-1.0)
[2019-05-13 03:35] LABS: VALPROIC ACID < 3 mcg/mL (50-100)
[2019-05-13] MEDS ORDERED: OLANZapine 5 MG TABLET PO ONE (05:15)
[2019-05-13 06:18] LABS: AMPHET/METH SCREEN,URINE NEGATIVE (NEGATIVE); BARBITURATE SCREEN, URINE NEGATIVE (NEGATIVE); BENZODIAZEPINES SCREEN,URINE NEGATIVE (NEGATIVE); CANNABINOID SCREEN,URINE POSITIVE (NEGATIVE); COCAINE SCREEN,URINE NEGATIVE (NEGATIVE); METHADONE SCREEN, URINE NEGATIVE (NEGATIVE); OPIATE SCREEN,URINE NEGATIVE (NEGATIVE)
[2019-05-13 06:21] LABS: PHENCYCLIDINE SCREEN,URINE NEGATIVE (NEGATIVE)
[2019-05-13] MEDS: LORazepam 2 MG TABLET PO PRN (06:44)
[2019-05-13 09:00] VITALS: BP 143/85
[2019-05-13] MEDS: LISINOPRIL 10 MG TABLET PO SCH (10:00)
[2019-05-13] MEDS ORDERED: LOPERAMIDE HCL 2 MG CAPSULE PO PRN (10:15)
[2019-05-13] MEDS ORDERED: CloNIDine HCL 0.1 MG TABLET PO PRN (10:15)
[2019-05-13] MEDS ORDERED: MAG HYDROX/AL HYDROX/SIMETH ES 30 ML SUSPENSION UDCUP PO PRN (10:15)
[2019-05-13] MEDS ORDERED: GuaiFENesin/D-METHORPHAN [SUGAR-FREE] 200-20MG/10 ML SYRUP UDCUP PO PRN (10:15)
[2019-05-13] MEDS ORDERED: MAGNESIUM HYDROXIDE SUSPENSION 30 ML UDCUP PO PRN (10:15)
[2019-05-13] MEDS ORDERED: DOCUSATE SODIUM 100 MG CAPSULE PO PRN (10:15)
[2019-05-13] MEDS ORDERED: ONDANSETRON HCL 4 MG TABLET PO PRN (10:15)
[2019-05-13] MEDS ORDERED: PETROLATUM,WHITE 28 GM JELLY TP PRN (10:15)
[2019-05-13] MEDS ORDERED: NICOTINE 14 MG/24 HOUR PATCH TD PRN (10:15)
[2019-05-13] MEDS ORDERED: ALBUTEROL SULFATE HFA 90 MCG/PUFF 8 GM INHALER IH PRN (10:15)
[2019-05-13] MEDS: BuPROPion HCL XL 150 MG ER TABLET PO SCH (11:49)
[2019-05-13] MEDS: DIVALPROEX SODIUM 500 MG ER TABLET PO SCH ×2 (11:49→16:42)
[2019-05-13] MEDS: OLANZapine 7.5 MG TABLET PO SCH ×2 (11:49→16:42)
[2019-05-13 16:16] VITALS: BP 108/68
[2019-05-14 00:41] VITALS: BP 116/75
[2019-05-14 06:27] VITALS: BP 120/100
[2019-05-14] MEDS: LORazepam 2 MG TABLET PO PRN ×3 (06:33→17:48)
[2019-05-14 08:41] VITALS: BP 149/78
[2019-05-14] MEDS ORDERED: LISINOPRIL 10 MG TABLET PO SCH (09:00)
[2019-05-14] MEDS: OLANZapine 7.5 MG TABLET PO SCH ×2 (09:33→16:31)
[2019-05-14] MEDS: BuPROPion HCL XL 150 MG ER TABLET PO SCH (09:33)
[2019-05-14] MEDS: LISINOPRIL 10 MG TABLET PO SCH (09:33)
[2019-05-14] MEDS: DIVALPROEX SODIUM 500 MG ER TABLET PO SCH ×2 (09:34→16:31)
[2019-05-14 09:43] LABS: CHOL/HDL RATIO 4.4 (4.2-7.3)
[2019-05-14 16:30] VITALS: BP 106/64
[2019-05-14 17:47] VITALS: BP 114/69
[2019-05-14] MEDS: ZOLPIDEM TARTRATE 10 MG TABLET PO PRN (20:51)
[2019-05-14 21:05] VITALS: BP 128/86
[2019-05-14] MEDS: ACETAMINOPHEN 325 MG TABLET PO PRN (21:08)
[2019-05-14] MEDS: HALOPERIDOL 5 MG TABLET PO PRN (22:19)
[2019-05-15] MEDS: LORazepam 2 MG TABLET PO PRN ×3 (00:24→20:57)
[2019-05-15 00:49] VITALS: BP 121/67
[2019-05-15 08:40] VITALS: BP 117/74
[2019-05-15] MEDS: DIVALPROEX SODIUM 500 MG ER TABLET PO SCH ×2 (09:43→17:57)
[2019-05-15] MEDS: OLANZapine 7.5 MG TABLET PO SCH ×2 (09:44→17:57)
[2019-05-15] MEDS: LISINOPRIL 10 MG TABLET PO SCH (09:44)
[2019-05-15] MEDS: BuPROPion HCL XL 150 MG ER TABLET PO SCH (09:44)
[2019-05-15 16:36] VITALS: BP 119/61
[2019-05-15 18:10] VITALS: BP 128/78
[2019-05-15] MEDS: IBUPROFEN 400 MG TABLET PO PRN (18:13)
[2019-05-15 20:55] VITALS: BP 137/92
[2019-05-15] MEDS: ACETAMINOPHEN 325 MG TABLET PO PRN (20:58)
[2019-05-15] MEDS: HALOPERIDOL 5 MG TABLET PO PRN (23:36)
[2019-05-15] MEDS: ZOLPIDEM TARTRATE 10 MG TABLET PO PRN (23:40)
[2019-05-16 00:23] VITALS: BP 123/73
[2019-05-16] MEDS: LORazepam 2 MG TABLET PO PRN ×4 (02:02→22:46)
[2019-05-16 08:11] VITALS: BP 126/82
[2019-05-16] MEDS: OLANZapine 7.5 MG TABLET PO SCH ×2 (08:43→16:35)
[2019-05-16] MEDS: DIVALPROEX SODIUM 500 MG ER TABLET PO SCH ×2 (08:43→16:35)
[2019-05-16] MEDS: LISINOPRIL 10 MG TABLET PO SCH (08:43)
[2019-05-16] MEDS: BuPROPion HCL XL 150 MG ER TABLET PO SCH (08:43)
[2019-05-16 16:19] VITALS: BP 109/68
[2019-05-16] MEDS: ZOLPIDEM TARTRATE 10 MG TABLET PO PRN (21:08)
[2019-05-17 00:25] VITALS: BP 144/89
[2019-05-17 03:20] VITALS: BP 128/91
[2019-05-17] MEDS: LORazepam 2 MG TABLET PO PRN ×4 (03:23→22:44)
[2019-05-17] MEDS: IBUPROFEN 400 MG TABLET PO PRN ×2 (03:45→15:57)
[2019-05-17 08:32] VITALS: BP 140/86
[2019-05-17] MEDS: BuPROPion HCL XL 150 MG ER TABLET PO SCH (09:05)
[2019-05-17] MEDS: LISINOPRIL 10 MG TABLET PO SCH (09:06)
[2019-05-17] MEDS: OLANZapine 7.5 MG TABLET PO SCH ×2 (09:06→16:35)
[2019-05-17] MEDS: DIVALPROEX SODIUM 500 MG ER TABLET PO SCH ×2 (09:06→16:35)
[2019-05-17 16:14] VITALS: BP 117/72
[2019-05-18 00:41] VITALS: BP 100/69
[2019-05-18] MEDS: ZOLPIDEM TARTRATE 10 MG TABLET PO PRN (01:40)
[2019-05-18 02:42] VITALS: BP 145/91
[2019-05-18] MEDS: IBUPROFEN 400 MG TABLET PO PRN (02:45)
[2019-05-18 05:40] VITALS: BP 132/90
[2019-05-18] MEDS: LORazepam 2 MG TABLET PO PRN (05:46)
[2019-05-18] MEDS: LISINOPRIL 10 MG TABLET PO SCH (08:10)
[2019-05-18] MEDS: DIVALPROEX SODIUM 500 MG ER TABLET PO SCH ×2 (08:11→17:09)
[2019-05-18] MEDS: OLANZapine 7.5 MG TABLET PO SCH ×2 (08:11→17:10)
[2019-05-18] MEDS: BuPROPion HCL XL 150 MG ER TABLET PO SCH (08:11)
[2019-05-18 08:32] VITALS: BP 135/83
[2019-05-18 16:27] VITALS: BP 108/74
[2019-05-19 00:19] VITALS: BP 114/70
[2019-05-19] MEDS: ZOLPIDEM TARTRATE 10 MG TABLET PO PRN (02:34)
[2019-05-19] MEDS: BuPROPion HCL XL 150 MG ER TABLET PO SCH (08:34)
[2019-05-19] MEDS: DIVALPROEX SODIUM 500 MG ER TABLET PO SCH (08:35)
[2019-05-19] MEDS: OLANZapine 7.5 MG TABLET PO SCH (08:35)
[2019-05-19] MEDS: LISINOPRIL 10 MG TABLET PO SCH (08:35)
== END 2019-05-19 13:05 | disposition home or self-care (01) | DRG 885 ==
LOC: EMS 02:30 → B2X 05:00
PROVIDERS: ADMIT Psychiatry & Neurology Psychiatry; ATTEND Psychiatry & Neurology Psychiatry
DX: F25.9 Schizoaffective disorder, unspecified (principal); R45.851 Suicidal ideations; I10 Essential (primary) hypertension; F15.90 Other stimulant use, unspecified, uncomplicated; G47.00 Insomnia, unspecified; F41.9 Anxiety disorder, unspecified; F17.200 Nicotine dependence, unspecified, uncomplicated; D72.829 Elevated white blood cell count, unspecified; F19.10 Other psychoactive substance abuse, uncomplicated; Z79.899 Other long term (current) drug therapy; Z91.5 Personal history of self-harm
CPT/HCPCS: 87081; G0480

== ENCOUNTER 2019-08-13 11:13 | Inpatient (IN) | payer MEDICARE, MEDICAID ==
[~2019-08-13] VITALS: Ht 170.2 cm; Wt 102.5 kg
[~2019-08-13 11:13] MED LIST changes: +CHOL100018 PO; -LISI-661 PO
[2019-08-13] MEDS ORDERED: LORazepam 2 MG/ML VIAL ONE (11:22)
[2019-08-13] MEDS ORDERED: HALOPERIDOL LACTATE 5 MG/ML VIAL ONE (11:22)
[2019-08-13] MEDS ORDERED: DiphenhydrAMINE HCL 50 MG/ML VIAL ONE (11:22)
[2019-08-13] MEDS ORDERED: LORazepam 2 MG/ML VIAL IM ONE (11:30)
[2019-08-13] MEDS ORDERED: HALOPERIDOL LACTATE 5 MG/ML VIAL IM ONE (11:30)
[2019-08-13] MEDS ORDERED: DiphenhydrAMINE HCL 50 MG/ML VIAL IM ONE (11:30)
[2019-08-13 12:13] LABS: BASOPHILS % (AUTO) 0.8 % (0.0-2.0); EOSINOPHILS % (AUTO) 0.2 % (1.0-6.0); HEMATOCRIT 46.4 % (41-53); HEMOGLOBIN 15.8 g/dL (13.5-17.5); LYMPHOCYTES # (AUTO) 2.5 K/uL (1.0-4.8); LYMPHOCYTES % (AUTO) 28.9 % (22.0-44.0); MEAN CORPUSCULAR HEMOGLOBIN 30.4 pg (26.0-34.0); MEAN CORPUSCULAR VOLUME 89 fL (80-100); MONOCYTES # (AUTO) 0.8 K/uL (0.1-1.0); MONOCYTES % (AUTO) 8.6 % (2.0-9.0); NEUTROPHILS # (AUTO) 5.4 K/uL (1.8-7.7); NEUTROPHILS % (AUTO) 61.5 % (40.0-70.0); PLATELET COUNT (AUTO) 259 K/uL (150-450); RED BLOOD CELL COUNT(AUTO) 5.19 MIL/uL (4.50-5.90); RED CELL DISTRIBUTION WIDTH 13.2 % (11.5-14.5)
[2019-08-13 12:20] LABS: ANION GAP 16 mmol/L (8-16); CALCIUM, TOTAL 8.6 mg/dL (8.8-10.5); CARBON DIOXIDE 19 mmol/L (22-29); CHLORIDE 105 mmol/L (98-107); CREATININE 1.01 mg/dL (0.60-1.30); GLOMERULAR FILTR. RATE CALC > 60 mL/min (>60); GLUCOSE,RANDOM 113 mg/dL (70-110); POTASSIUM 3.2 mmol/L (3.5-5.1); SODIUM SERUM 140 mmol/L (136-145); UREA NITROGEN, BLOOD 9 mg/dL (7-18)
[2019-08-13 12:27] LABS: ALANINE AMINOTRANSFERASE 61 U/L (12-78); ALBUMIN 4.4 g/dL (3.4-5.0); ALKALINE PHOSPHATASE 71 U/L (46-116); ASPARTATE AMINOTRANSFERASE 42 U/L (15-37); BILIRUBIN,TOTAL 0.5 mg/dL (0.1-1.0); TOTAL PROTEIN, SERUM 7.8 g/dL (6.4-8.2)
[2019-08-13 12:33] LABS: VALPROIC ACID < 3 mcg/mL (50-100)
[2019-08-13] MEDS ORDERED: HALOPERIDOL 5 MG TABLET PO PRN (14:30)
[2019-08-13 17:10] VITALS: BP 114/79
[2019-08-13 17:21] VITALS: BP 114/79
[2019-08-13] MEDS ORDERED: PNEUMOCOCCAL VACCINE POLYVALENT 0.5 ML VIAL [PPSV23] IM ONE (17:30)
[2019-08-13 18:10] VITALS: BP 100/64
[2019-08-13 18:36] VITALS: BP 100/64
[2019-08-13 19:10] VITALS: BP 101/57
[2019-08-13 20:26] VITALS: BP 132/78
[2019-08-14] VITALS (7 sets, daily range): BP systolic 101–136; BP diastolic 67–82
[2019-08-14] MEDS ORDERED: ALBUTEROL SULFATE HFA 90 MCG/PUFF 8 GM INHALER IH PRN (08:00)
[2019-08-14] MEDS ORDERED: CloNIDine HCL 0.1 MG TABLET PO PRN (08:00)
[2019-08-14] MEDS ORDERED: PETROLATUM,WHITE 28 GM JELLY TP PRN (08:00)
[2019-08-14] MEDS ORDERED: ONDANSETRON HCL 4 MG TABLET PO PRN (08:00)
[2019-08-14] MEDS ORDERED: OMEPRAZOLE 20 MG CAPSULE PO PRN (08:00)
[2019-08-14] MEDS ORDERED: MAGNESIUM HYDROXIDE SUSPENSION 30 ML UDCUP PO PRN (08:00)
[2019-08-14] MEDS ORDERED: BENZOCAINE/MENTHOL LOZENGE MM PRN (08:00)
[2019-08-14] MEDS ORDERED: LOPERAMIDE HCL 2 MG CAPSULE PO PRN (08:00)
[2019-08-14] MEDS ORDERED: DOCUSATE SODIUM 100 MG CAPSULE PO PRN (08:00)
[2019-08-14] MEDS ORDERED: ACETAMINOPHEN 325 MG TABLET PO PRN (08:00)
[2019-08-14] MEDS ORDERED: BACITRACIN 28.4 GM OINTMENT TP PRN (08:00)
[2019-08-14] MEDS ORDERED: MAG HYDROX/AL HYDROX/SIMETH ES 30 ML SUSPENSION UDCUP PO PRN (08:00)
[2019-08-14] MEDS: CHOLECALCIFEROL (VIT D3) 1,000 UNITS [25 MCG] TABLET PO SCH (08:27)
[2019-08-14] MEDS ORDERED: POTASSIUM CHLORIDE 20 MEQ ER TABLET PO ONE (10:00)
[2019-08-14] MEDS: LORazepam 2 MG TABLET PO PRN ×2 (10:09→20:04)
[2019-08-14] MEDS: DIVALPROEX SODIUM 500 MG DR TABLET PO SCH (16:30)
[2019-08-14] MEDS: OLANZapine 10 MG TABLET PO SCH (20:39)
[2019-08-15 00:20] VITALS: BP 128/91
[2019-08-15] MEDS: IBUPROFEN 600 MG TABLET PO PRN (00:37)
[2019-08-15 04:14] VITALS: BP 128/91
[2019-08-15] MEDS: DIVALPROEX SODIUM 500 MG DR TABLET PO SCH ×2 (08:27→16:30)
[2019-08-15] MEDS: CHOLECALCIFEROL (VIT D3) 1,000 UNITS [25 MCG] TABLET PO SCH (08:27)
[2019-08-15 08:43] LABS: ANION GAP 14 mmol/L (8-16); CALCIUM, TOTAL 8.9 mg/dL (8.8-10.5); CARBON DIOXIDE 24 mmol/L (22-29); CHLORIDE 103 mmol/L (98-107); CHOL/HDL RATIO 5.2 (4.2-7.3); CHOLESTEROL 146 mg/dL (131-200); CREATININE 1.02 mg/dL (0.60-1.30); GLOMERULAR FILTR. RATE CALC > 60 mL/min (>60); GLUCOSE,RANDOM 107 mg/dL (70-110); HDL CHOLESTEROL 28 mg/dL (40-60); LDL CHOL (CALC.) 78 mg/dL (0-130); POTASSIUM 3.7 mmol/L (3.5-5.1); SODIUM SERUM 141 mmol/L (136-145); TRIGLYCERIDES 198 mg/dL (15-150); UREA NITROGEN, BLOOD 12 mg/dL (7-18)
[2019-08-15 10:10] VITALS: BP 145/90
[2019-08-15 16:02] VITALS: BP 119/86
[2019-08-15] MEDS: OLANZapine 10 MG TABLET PO SCH (20:14)
[2019-08-15] MEDS: LORazepam 2 MG TABLET PO PRN (22:15)
[2019-08-16 01:18] VITALS: BP 141/86
[2019-08-16] MEDS: ZOLPIDEM TARTRATE 10 MG TABLET PO PRN ×2 (01:21→22:03)
[2019-08-16 06:45] VITALS: BP 122/75
[2019-08-16 08:16] VITALS: BP 144/90
[2019-08-16 08:17] VITALS: BP 144/90
[2019-08-16] MEDS: CHOLECALCIFEROL (VIT D3) 1,000 UNITS [25 MCG] TABLET PO SCH (08:18)
[2019-08-16] MEDS: DIVALPROEX SODIUM 500 MG DR TABLET PO SCH ×2 (08:19→16:26)
[2019-08-16 16:02] VITALS: BP 131/75
[2019-08-16] MEDS: OLANZapine 10 MG TABLET PO SCH (20:31)
[2019-08-16] MEDS: LORazepam 2 MG TABLET PO PRN (21:02)
[2019-08-17 00:22] VITALS: BP 121/90
[2019-08-17] MEDS: LORazepam 2 MG TABLET PO PRN ×3 (02:19→21:01)
[2019-08-17 04:11] VITALS: BP 118/74
[2019-08-17] MEDS: CHOLECALCIFEROL (VIT D3) 1,000 UNITS [25 MCG] TABLET PO SCH (08:09)
[2019-08-17] MEDS: DIVALPROEX SODIUM 500 MG DR TABLET PO SCH ×2 (08:09→16:30)
[2019-08-17 08:40] VITALS: BP_SYST 114; BP_SYST 130; BP_DIAS 60; BP_DIAS 82
[2019-08-17 13:40] VITALS: BP 122/76
[2019-08-17 16:24] VITALS: BP 110/66
[2019-08-17 17:10] VITALS: BP 110/66
[2019-08-17] MEDS: OLANZapine 10 MG TABLET PO SCH (20:26)
[2019-08-17] MEDS: ZOLPIDEM TARTRATE 10 MG TABLET PO PRN (22:35)
[2019-08-18 00:05] VITALS: BP 112/70
[2019-08-18] MEDS: LORazepam 2 MG TABLET PO PRN ×3 (01:17→21:17)
[2019-08-18 08:18] VITALS: BP 138/79
[2019-08-18] MEDS: CHOLECALCIFEROL (VIT D3) 1,000 UNITS [25 MCG] TABLET PO SCH (08:29)
[2019-08-18] MEDS: DIVALPROEX SODIUM 500 MG DR TABLET PO SCH ×2 (08:29→16:38)
[2019-08-18 08:30] VITALS: BP 138/79
[2019-08-18 16:07] VITALS: BP 105/79
[2019-08-18 16:39] VITALS: BP 105/79
[2019-08-18] MEDS: OLANZapine 10 MG TABLET PO SCH (20:36)
[2019-08-18] MEDS: ZOLPIDEM TARTRATE 10 MG TABLET PO PRN (23:56)
[2019-08-19 00:04] VITALS: BP 140/88
[2019-08-19 00:05] VITALS: BP 140/88
[2019-08-19 02:01] VITALS: BP 142/92
[2019-08-19] MEDS: IBUPROFEN 600 MG TABLET PO PRN (02:07)
[2019-08-19 08:16] VITALS: BP 125/72
[2019-08-19] MEDS: OMEGA-3/DHA/EPA/FISH OIL 1,000 MG CAPSULE PO SCH (08:25)
[2019-08-19] MEDS: DIVALPROEX SODIUM 500 MG DR TABLET PO SCH ×2 (08:25→16:29)
[2019-08-19] MEDS: CHOLECALCIFEROL (VIT D3) 1,000 UNITS [25 MCG] TABLET PO SCH (08:25)
[2019-08-19] MEDS: LORazepam 2 MG TABLET PO PRN ×2 (12:29→18:06)
[2019-08-19 16:00] VITALS: BP 116/68
[2019-08-19 16:31] VITALS: BP 116/68
[2019-08-19] MEDS: OLANZapine 10 MG TABLET PO SCH (20:42)
[2019-08-20 00:16] VITALS: BP 142/92
[2019-08-20] MEDS: LORazepam 2 MG TABLET PO PRN (00:19)
[2019-08-20 01:32] VITALS: BP 140/94
[2019-08-20] MEDS: ZOLPIDEM TARTRATE 10 MG TABLET PO PRN (01:37)
[2019-08-20 01:49] VITALS: BP 142/92
[2019-08-20 02:16] VITALS: BP 141/90
[2019-08-20] MEDS: IBUPROFEN 600 MG TABLET PO PRN (02:17)
[2019-08-20] MEDS: CHOLECALCIFEROL (VIT D3) 1,000 UNITS [25 MCG] TABLET PO SCH (08:16)
[2019-08-20] MEDS: OMEGA-3/DHA/EPA/FISH OIL 1,000 MG CAPSULE PO SCH (08:17)
[2019-08-20] MEDS: DIVALPROEX SODIUM 500 MG DR TABLET PO SCH (08:20)
[2019-08-20] MEDS ORDERED: FOLIC ACID 1 MG TABLET PO SCH (09:00)
[2019-08-20] MEDS ORDERED: THIAMINE 100 MG TABLET PO SCH (09:00)
[2019-08-20] MEDS ORDERED: MULTIVITAMINS WITH IRON TABLET PO SCH (09:00)
== END 2019-08-20 11:50 | disposition home or self-care (01) | DRG 885 ==
LOC: EMS 11:18 → B2X 15:37 → UNDOADMIN 15:37 → UNDODISIN 08-20 11:50
PROVIDERS: ADMIT Psychiatry & Neurology Child & Adolescent Psychiatry; ATTEND Psychiatry & Neurology Psychiatry
DX: F20.0 Paranoid schizophrenia (principal); E66.9 Obesity, unspecified; F17.200 Nicotine dependence, unspecified, uncomplicated; I10 Essential (primary) hypertension; G47.00 Insomnia, unspecified; F41.9 Anxiety disorder, unspecified; F12.10 Cannabis abuse, uncomplicated; K21.9 Gastro-esophageal reflux disease without esophagitis; E55.9 Vitamin D deficiency, unspecified; Z79.899 Other long term (current) drug therapy; Z68.35 Body mass index [BMI] 35.0-35.9, adult
CPT/HCPCS: G0480; J1200; J1630; J2060

== ENCOUNTER 2019-10-12 17:48 | Inpatient (IN) | payer MEDICARE, MEDICAID ==
[~2019-10-12] VITALS: Ht 170.2 cm; Wt 99.1 kg
[~2019-10-12 17:48] MED LIST changes: -BUPR-93 PO; -CHOL100018 PO; +DIVA-80 PO; -DIVA500T52 PO
[2019-10-12] MEDS ORDERED: HALOPERIDOL 5 MG TABLET PO PRN (19:15)
[2019-10-12] MEDS ORDERED: PNEUMOCOCCAL VACCINE POLYVALENT 0.5 ML VIAL [PPSV23] IM ONE (20:30)
[2019-10-12 20:51] VITALS: BP 129/72
[2019-10-12] MEDS: LORazepam 2 MG TABLET PO PRN (21:46)
[2019-10-13 06:44] VITALS: BP 124/86
[2019-10-13] MEDS ORDERED: OMEPRAZOLE 20 MG CAPSULE PO PRN (07:15)
[2019-10-13] MEDS ORDERED: ACETAMINOPHEN 325 MG TABLET PO PRN (07:15)
[2019-10-13] MEDS ORDERED: BENZOCAINE/MENTHOL LOZENGE MM PRN (07:15)
[2019-10-13] MEDS ORDERED: ALBUTEROL SULFATE HFA 90 MCG/PUFF 8 GM INHALER IH PRN (07:15)
[2019-10-13] MEDS ORDERED: LOPERAMIDE HCL 2 MG CAPSULE PO PRN (07:15)
[2019-10-13] MEDS ORDERED: MAG HYDROX/AL HYDROX/SIMETH ES 30 ML SUSPENSION UDCUP PO PRN (07:15)
[2019-10-13] MEDS ORDERED: DOCUSATE SODIUM 100 MG CAPSULE PO PRN (07:15)
[2019-10-13] MEDS ORDERED: CloNIDine HCL 0.1 MG TABLET PO PRN (07:15)
[2019-10-13] MEDS ORDERED: MAGNESIUM HYDROXIDE SUSPENSION 30 ML UDCUP PO PRN (07:15)
[2019-10-13] MEDS ORDERED: PETROLATUM,WHITE 28 GM JELLY TP PRN (07:15)
[2019-10-13] MEDS ORDERED: ONDANSETRON HCL 4 MG TABLET PO PRN (07:15)
[2019-10-13] MEDS ORDERED: BACITRACIN 28.4 GM OINTMENT TP PRN (07:15)
[2019-10-13] MEDS ORDERED: IBUPROFEN 600 MG TABLET PO PRN (07:15)
[2019-10-13 08:18] VITALS: BP 140/82
[2019-10-13] MEDS: OLANZapine 10 MG TABLET PO SCH ×2 (12:43→20:40)
[2019-10-13] MEDS: DIVALPROEX SODIUM 500 MG DR TABLET PO SCH ×2 (12:44→20:40)
[2019-10-13] MEDS: LORazepam 2 MG TABLET PO PRN ×2 (12:50→21:43)
[2019-10-13 16:11] VITALS: BP 120/73
[2019-10-13] MEDS: ZOLPIDEM TARTRATE 10 MG TABLET PO PRN (22:42)
[2019-10-14 01:28] VITALS: BP 150/98
[2019-10-14] MEDS: LORazepam 2 MG TABLET PO PRN ×2 (01:58→06:25)
[2019-10-14 08:50] VITALS: BP 131/86
[2019-10-14] MEDS: OLANZapine 10 MG TABLET PO SCH ×2 (08:56→20:34)
[2019-10-14] MEDS: DIVALPROEX SODIUM 500 MG DR TABLET PO SCH ×2 (08:56→20:34)
[2019-10-14 16:25] VITALS: BP 139/78
[2019-10-14] MEDS: ZOLPIDEM TARTRATE 10 MG TABLET PO PRN (21:35)
[2019-10-15 00:56] VITALS: BP 141/88
[2019-10-15 08:28] VITALS: BP 138/86
[2019-10-15] MEDS: DIVALPROEX SODIUM 500 MG DR TABLET PO SCH ×2 (09:00→20:43)
[2019-10-15] MEDS: OLANZapine 10 MG TABLET PO SCH ×2 (09:00→20:43)
[2019-10-15 16:21] VITALS: BP 114/63
[2019-10-16 01:09] VITALS: BP 132/85
[2019-10-16] MEDS: OLANZapine 10 MG TABLET PO SCH ×2 (08:21→20:44)
[2019-10-16] MEDS: DIVALPROEX SODIUM 500 MG DR TABLET PO SCH ×2 (08:21→20:44)
[2019-10-16 08:37] VITALS: BP 137/82
[2019-10-16 16:35] VITALS: BP 120/82
[2019-10-16] MEDS: ZOLPIDEM TARTRATE 10 MG TABLET PO PRN (21:56)
[2019-10-17 01:11] VITALS: BP 132/81
[2019-10-17] MEDS: DIVALPROEX SODIUM 500 MG DR TABLET PO SCH (08:26)
[2019-10-17] MEDS: OLANZapine 10 MG TABLET PO SCH (08:26)
[2019-10-17 08:59] VITALS: BP 131/73
[2019-10-17] MEDS ORDERED: OMEGA-3/DHA/EPA/FISH OIL 1,000 MG CAPSULE PO SCH (09:00)
[2019-10-17] MEDS ORDERED: MULTIVITAMINS WITH IRON TABLET PO SCH (09:00)
[2019-10-17] MEDS ORDERED: DIVA-112 PO (11:51)
[2019-10-17] MEDS ORDERED: OLAN10TA3 PO ×2 (11:52)
== END 2019-10-17 14:05 | disposition home or self-care (01) | DRG 885 ==
LOC: B2X 19:27
PROVIDERS: ADMIT Psychiatry & Neurology Child & Adolescent Psychiatry; ATTEND Psychiatry & Neurology Child & Adolescent Psychiatry
DX: F25.1 Schizoaffective disorder, depressive type (principal); Z91.14 Patient's other noncompliance with medication regimen; F17.200 Nicotine dependence, unspecified, uncomplicated; E66.9 Obesity, unspecified; Z68.34 Body mass index [BMI] 34.0-34.9, adult; I10 Essential (primary) hypertension; G47.00 Insomnia, unspecified; F41.9 Anxiety disorder, unspecified; F12.10 Cannabis abuse, uncomplicated; K21.9 Gastro-esophageal reflux disease without esophagitis; E55.9 Vitamin D deficiency, unspecified
CPT/HCPCS: 87081; Z7610

== ENCOUNTER 2020-01-28 05:08 | Inpatient (IN) | payer MEDICARE, MEDICAID ==
[~2020-01-28] VITALS: Ht 170.2 cm; Wt 89.7 kg
[~2020-01-28 05:08] MED LIST changes: +NALT50TA PO; +NALT50TA6 PO; +OLAN10TA22 PO; +OLAN10TA3 PO; -OLAN7.5T2 PO; +OMEG-135 PO
[2020-01-28] MEDS ORDERED: CLON0.5T4 PO (05:42)
[2020-01-28 06:05] LABS: BASOPHILS % (AUTO) 0.6 % (0.0-2.0); EOSINOPHILS % (AUTO) 1.2 % (1.0-6.0); HEMATOCRIT 41.5 % (41-53); HEMOGLOBIN 14.4 g/dL (13.5-17.5); LYMPHOCYTES % (AUTO) 20.6 % (22.0-44.0); MEAN CORPUSCULAR HEMOGLOBIN 30.5 pg (26.0-34.0); MEAN CORPUSCULAR HGB CONC 34.7 G/dL (31.0-37.0); MEAN CORPUSCULAR VOLUME 88 fL (80-100); MONOCYTES # (AUTO) 0.7 K/uL (0.1-1.0); NEUTROPHILS # (AUTO) 6.9 K/uL (1.8-7.7); NEUTROPHILS % (AUTO) 70.6 % (40.0-70.0); PLATELET COUNT (AUTO) 255 K/uL (150-450); RED BLOOD CELL COUNT(AUTO) 4.73 MIL/uL (4.50-5.90); RED CELL DISTRIBUTION WIDTH 13.5 % (11.5-14.5)
[2020-01-28 06:24] LABS: ALANINE AMINOTRANSFERASE 43 U/L (12-78); ALBUMIN 3.6 g/dL (3.4-5.0); ALKALINE PHOSPHATASE 78 U/L (46-116); ANION GAP 11 mmol/L (8-16); ASPARTATE AMINOTRANSFERASE 36 U/L (15-37); BILIRUBIN,TOTAL 0.9 mg/dL (0.1-1.0); CALCIUM, TOTAL 8.4 mg/dL (8.8-10.5); CARBON DIOXIDE 24 mmol/L (22-29); CHLORIDE 105 mmol/L (98-107); GLOMERULAR FILTR. RATE CALC > 60 mL/min (>60); GLUCOSE,RANDOM 108 mg/dL (70-110); SODIUM SERUM 140 mmol/L (136-145); UREA NITROGEN, BLOOD 21 mg/dL (7-18)
[2020-01-28 06:31] LABS: SALICYLATE < 2.8 mg/dL (2.8-20.0)
[2020-01-28 06:39] LABS: ACETAMINOPHEN < 2 mcg/mL (10-30); POTASSIUM 2.8 mmol/L (3.5-5.1); VALPROIC ACID < 3 mcg/mL (50-100)
[2020-01-28 06:44] LABS: AMPHET/METH SCREEN,URINE POSITIVE (NEGATIVE); BARBITURATE SCREEN, URINE NEGATIVE (NEGATIVE); BENZODIAZEPINES SCREEN,URINE NEGATIVE (NEGATIVE); CANNABINOID SCREEN,URINE POSITIVE (NEGATIVE); COCAINE SCREEN,URINE NEGATIVE (NEGATIVE); METHADONE SCREEN, URINE NEGATIVE (NEGATIVE); OPIATE SCREEN,URINE POSITIVE (NEGATIVE)
[2020-01-28] MEDS ORDERED: POTASSIUM CHL 20 MEQ/0.9% NS 1,000 ML IV ONE (06:45)
[2020-01-28 07:11] LABS: PHENCYCLIDINE SCREEN,URINE NEGATIVE (NEGATIVE)
[2020-01-28 07:54] LABS: GLUCOSE,POINT OF CARE 79 MG/DL (70-110)
[2020-01-28 14:19] LABS: GLUCOSE,POINT OF CARE 68 MG/DL (70-110)
[2020-01-28] MEDS ORDERED: ACETAMINOPHEN 500 MG TABLET PO ONE (15:45)
[2020-01-28] MEDS ORDERED: ACETAMINOPHEN 325 MG TABLET PO ONE (15:45)
[2020-01-28] MEDS ORDERED: ChlorproMAZINE HCL 100 MG TABLET PO PRN (16:45)
[2020-01-28 17:01] LABS: COVID AG,FIA SOURCE NASOPHARYNGEAL
[2020-01-28] MEDS: RisperiDONE 1 MG TABLET PO SCH (18:50)
[2020-01-28] MEDS: HydrOXYzine PAMOATE 50 MG CAPSULE PO PRN (18:57)
[2020-01-28] MEDS: DIVALPROEX SODIUM 500 MG ER TABLET PO SCH (21:09)
[2020-01-28 21:33] VITALS: BP 127/86
[2020-01-29] VITALS: BP 124/80
[2020-01-29] MEDS ORDERED: INFLUENZA VIRUS VACCINE QVS 2020-21 (6MO+)/PF 60 MCG/0.5 ML SYRINGE IM ONE (01:45)
[2020-01-29] MEDS ORDERED: PNEUMOCOCCAL VACCINE POLYVALENT 0.5 ML VIAL [PPSV23] IM ONE (01:45)
[2020-01-29] MEDS ORDERED: ACETAMINOPHEN 325 MG TABLET PO PRN (07:30)
[2020-01-29] MEDS ORDERED: LOPERAMIDE HCL 2 MG CAPSULE PO PRN (07:30)
[2020-01-29] MEDS ORDERED: DOCUSATE SODIUM 100 MG CAPSULE PO PRN (07:30)
[2020-01-29] MEDS ORDERED: CloNIDine HCL 0.1 MG TABLET PO PRN (07:30)
[2020-01-29] MEDS ORDERED: IBUPROFEN 600 MG TABLET PO PRN (07:30)
[2020-01-29] MEDS ORDERED: MAG HYDROX/AL HYDROX/SIMETH ES 30 ML SUSPENSION UDCUP PO PRN (07:30)
[2020-01-29] MEDS ORDERED: OMEPRAZOLE 20 MG CAPSULE PO PRN (07:30)
[2020-01-29] MEDS ORDERED: BENZOCAINE/MENTHOL LOZENGE PO PRN (07:30)
[2020-01-29] MEDS ORDERED: MAGNESIUM HYDROXIDE SUSPENSION 30 ML UDCUP PO PRN (07:30)
[2020-01-29] MEDS ORDERED: PETROLATUM,WHITE 28 GM JELLY TP PRN (07:30)
[2020-01-29] MEDS ORDERED: ONDANSETRON HCL 4 MG TABLET PO PRN (07:30)
[2020-01-29] MEDS ORDERED: BACITRACIN 28 GM OINTMENT TP PRN (07:30)
[2020-01-29] MEDS ORDERED: ALBUTEROL SULFATE HFA 90 MCG/PUFF 8 GM INHALER IH PRN (07:30)
[2020-01-29 08:27] VITALS: BP 134/69
[2020-01-29] MEDS: OMEGA-3/DHA/EPA/FISH OIL 1,000 MG CAPSULE PO SCH (10:04)
[2020-01-29] MEDS: DIVALPROEX SODIUM 500 MG ER TABLET PO SCH ×2 (10:06→16:36)
[2020-01-29] MEDS: BACITRACIN 28 GM OINTMENT TP SCH (10:06)
[2020-01-29] MEDS: RisperiDONE 1 MG TABLET PO SCH (10:06)
[2020-01-29] MEDS ORDERED: GuaiFENesin/D-METHORPHAN [SUGAR-FREE] 200-20MG/10 ML SYRUP UDCUP PO PRN (14:15)
[2020-01-29] MEDS ORDERED: HydrOXYzine PAMOATE 50 MG CAPSULE PO PRN (14:15)
[2020-01-29] MEDS ORDERED: OLANZapine 5 MG RAPDIS TABLET PO PRN (16:15)
[2020-01-29] MEDS ORDERED: PALIPERIDONE PALMITATE 234 MG/1.5 ML SYRINGE IM ONE (16:15)
[2020-01-29] MEDS: THIAMINE 100 MG TABLET PO SCH (16:29)
[2020-01-29 16:46] VITALS: BP 136/86
[2020-01-29] MEDS ORDERED: RisperiDONE 2 MG TABLET PO SCH (17:00)
[2020-01-29] MEDS: OLANZapine 5 MG RAPDIS TABLET PO SCH (20:29)
[2020-01-30 05:10] VITALS: BP 118/77
[2020-01-30 08:17] VITALS: BP 110/72
[2020-01-30] MEDS: OMEGA-3/DHA/EPA/FISH OIL 1,000 MG CAPSULE PO SCH (10:11)
[2020-01-30] MEDS: MULTIVITAMINS WITH MINERALS, THERAPEUTIC TABLET PO SCH (10:12)
[2020-01-30] MEDS: THIAMINE 100 MG TABLET PO SCH ×2 (10:12→16:45)
[2020-01-30] MEDS: DIVALPROEX SODIUM 500 MG ER TABLET PO SCH ×3 (10:12→16:45)
[2020-01-30] MEDS: FOLIC ACID 1 MG TABLET PO SCH (10:12)
[2020-01-30] MEDS: NALTREXONE HCL 50 MG TABLET PO SCH (10:13)
[2020-01-30] MEDS: BACITRACIN 28 GM OINTMENT TP SCH (10:14)
[2020-01-30 16:34] VITALS: BP 136/85
[2020-01-30] MEDS: OLANZapine 5 MG RAPDIS TABLET PO SCH (20:20)
[2020-01-31 00:28] VITALS: BP 124/86
[2020-01-31 08:17] VITALS: BP 146/86
[2020-01-31] MEDS: THIAMINE 100 MG TABLET PO SCH ×2 (08:39→16:37)
[2020-01-31] MEDS: NALTREXONE HCL 50 MG TABLET PO SCH (08:39)
[2020-01-31] MEDS: DIVALPROEX SODIUM 500 MG ER TABLET PO SCH ×3 (08:39→16:37)
[2020-01-31] MEDS: MULTIVITAMINS WITH MINERALS, THERAPEUTIC TABLET PO SCH (08:39)
[2020-01-31] MEDS: FOLIC ACID 1 MG TABLET PO SCH (08:39)
[2020-01-31] MEDS: OMEGA-3/DHA/EPA/FISH OIL 1,000 MG CAPSULE PO SCH (08:39)
[2020-01-31] MEDS: BACITRACIN 28 GM OINTMENT TP SCH (08:40)
[2020-01-31 16:14] VITALS: BP 140/84
[2020-01-31] MEDS: OLANZapine 5 MG RAPDIS TABLET PO SCH (20:16)
[2020-02-01 05:11] VITALS: BP 128/80
[2020-02-01 08:06] VITALS: BP 131/72
[2020-02-01] MEDS: FOLIC ACID 1 MG TABLET PO SCH (09:29)
[2020-02-01] MEDS: DIVALPROEX SODIUM 500 MG ER TABLET PO SCH ×3 (09:29→16:33)
[2020-02-01] MEDS: OMEGA-3/DHA/EPA/FISH OIL 1,000 MG CAPSULE PO SCH (09:29)
[2020-02-01] MEDS: NALTREXONE HCL 50 MG TABLET PO SCH (09:29)
[2020-02-01] MEDS: BACITRACIN 28 GM OINTMENT TP SCH (09:31)
[2020-02-01] MEDS: THIAMINE 100 MG TABLET PO SCH ×2 (09:58→16:33)
[2020-02-01] MEDS: MULTIVITAMINS WITH MINERALS, THERAPEUTIC TABLET PO SCH (09:58)
[2020-02-01] MEDS ORDERED: FLUoxetine HCL 20 MG CAPSULE PO ONE (15:30)
[2020-02-01 16:16] VITALS: BP 135/80
[2020-02-01] MEDS: OLANZapine 10 MG RAPDIS TABLET PO SCH (20:29)
[2020-02-01] MEDS: ZOLPIDEM TARTRATE 5 MG TABLET PO PRN (22:21)
[2020-02-02 00:26] VITALS: BP 139/88
[2020-02-02 08:37] VITALS: BP 124/81
[2020-02-02] MEDS: MULTIVITAMINS WITH MINERALS, THERAPEUTIC TABLET PO SCH (08:42)
[2020-02-02] MEDS: OMEGA-3/DHA/EPA/FISH OIL 1,000 MG CAPSULE PO SCH (08:42)
[2020-02-02] MEDS: FOLIC ACID 1 MG TABLET PO SCH (08:42)
[2020-02-02] MEDS: THIAMINE 100 MG TABLET PO SCH ×2 (08:42→16:27)
[2020-02-02] MEDS: DIVALPROEX SODIUM 500 MG ER TABLET PO SCH ×3 (08:42→16:27)
[2020-02-02] MEDS: NALTREXONE HCL 50 MG TABLET PO SCH (08:42)
[2020-02-02] MEDS: BACITRACIN 28 GM OINTMENT TP SCH (08:43)
[2020-02-02] MEDS ORDERED: FLUoxetine HCL 20 MG CAPSULE PO SCH (09:00)
[2020-02-02] MEDS ORDERED: PALIPERIDONE PALMITATE 156 MG/ML SYRINGE IM ONE (09:00)
[2020-02-02 16:13] VITALS: BP 129/82
[2020-02-02] MEDS: HydrOXYzine PAMOATE 50 MG CAPSULE PO PRN (18:16)
[2020-02-02] MEDS: OLANZapine 10 MG RAPDIS TABLET PO SCH (20:24)
[2020-02-02] MEDS: ZOLPIDEM TARTRATE 5 MG TABLET PO PRN (22:53)
[2020-02-03 01:18] VITALS: BP 143/89
[2020-02-03 08:29] VITALS: BP 124/80
[2020-02-03] MEDS: MULTIVITAMINS WITH MINERALS, THERAPEUTIC TABLET PO SCH (08:53)
[2020-02-03] MEDS: BACITRACIN 28 GM OINTMENT TP SCH (08:53)
[2020-02-03] MEDS: THIAMINE 100 MG TABLET PO SCH ×2 (08:53→16:37)
[2020-02-03] MEDS: DIVALPROEX SODIUM 500 MG ER TABLET PO SCH ×3 (08:54→16:37)
[2020-02-03] MEDS: OMEGA-3/DHA/EPA/FISH OIL 1,000 MG CAPSULE PO SCH (08:54)
[2020-02-03] MEDS: FOLIC ACID 1 MG TABLET PO SCH (08:54)
[2020-02-03] MEDS: FLUoxetine HCL 20 MG CAPSULE PO SCH (08:54)
[2020-02-03] MEDS: NALTREXONE HCL 50 MG TABLET PO SCH (08:54)
[2020-02-03 16:43] VITALS: BP 118/76
[2020-02-03] MEDS: OLANZapine 10 MG RAPDIS TABLET PO SCH (20:35)
[2020-02-03] MEDS: ZOLPIDEM TARTRATE 5 MG TABLET PO PRN (23:03)
[2020-02-04 00:05] VITALS: BP 121/78
[2020-02-04 08:07] VITALS: BP 138/86
[2020-02-04] MEDS: OMEGA-3/DHA/EPA/FISH OIL 1,000 MG CAPSULE PO SCH (08:54)
[2020-02-04] MEDS: THIAMINE 100 MG TABLET PO SCH ×2 (08:54→16:08)
[2020-02-04] MEDS: DIVALPROEX SODIUM 500 MG ER TABLET PO SCH ×3 (08:54→16:08)
[2020-02-04] MEDS: FOLIC ACID 1 MG TABLET PO SCH (08:54)
[2020-02-04] MEDS: NALTREXONE HCL 50 MG TABLET PO SCH (08:54)
[2020-02-04] MEDS: FLUoxetine HCL 20 MG CAPSULE PO SCH (08:55)
[2020-02-04] MEDS: BACITRACIN 28 GM OINTMENT TP SCH (08:55)
[2020-02-04] MEDS: MULTIVITAMINS WITH MINERALS, THERAPEUTIC TABLET PO SCH (08:55)
[2020-02-04] MEDS: HydrOXYzine PAMOATE 50 MG CAPSULE PO PRN (14:37)
[2020-02-04] MEDS ORDERED: NALT50TA PO (15:06)
[2020-02-04] MEDS ORDERED: OMEG-135 PO (15:06)
[2020-02-04] MEDS ORDERED: DIVA-80 PO (15:06)
[2020-02-04] MEDS ORDERED: OLAN10TA22 PO (15:06)
[2020-02-04] MEDS ORDERED: FLUO-191 PO (15:06)
[2020-02-04 16:08] VITALS: BP 123/76
[2020-02-04] MEDS: OLANZapine 10 MG RAPDIS TABLET PO SCH (20:21)
[2020-02-05] MEDS: ZOLPIDEM TARTRATE 5 MG TABLET PO PRN (01:07)
[2020-02-05 01:16] VITALS: BP 150/111
[2020-02-05 02:16] VITALS: BP 128/94
[2020-02-05 08:10] VITALS: BP 117/60
[2020-02-05] MEDS: OMEGA-3/DHA/EPA/FISH OIL 1,000 MG CAPSULE PO SCH (08:55)
[2020-02-05] MEDS: THIAMINE 100 MG TABLET PO SCH (08:55)
[2020-02-05] MEDS: NALTREXONE HCL 50 MG TABLET PO SCH (08:56)
[2020-02-05] MEDS: MULTIVITAMINS WITH MINERALS, THERAPEUTIC TABLET PO SCH (08:56)
[2020-02-05] MEDS: FOLIC ACID 1 MG TABLET PO SCH (08:56)
[2020-02-05] MEDS: DIVALPROEX SODIUM 500 MG ER TABLET PO SCH ×2 (08:56→12:05)
[2020-02-05] MEDS: BACITRACIN 28 GM OINTMENT TP SCH (08:57)
[2020-02-05] MEDS ORDERED: FLUoxetine HCL 20 MG CAPSULE PO SCH (09:00)
== END 2020-02-05 13:10 | disposition home or self-care (01) | DRG 885 ==
LOC: EMS 05:09 → B2X 17:56
PROVIDERS: ADMIT Psychiatry & Neurology Psychiatry; ATTEND Psychiatry & Neurology Psychiatry
DX: F33.2 Major depressive disorder, recurrent severe without psychotic features (principal); T42.4X2A Poisoning by benzodiazepines, intentional self-harm, initial encounter; F17.200 Nicotine dependence, unspecified, uncomplicated; F15.10 Other stimulant abuse, uncomplicated; F12.20 Cannabis dependence, uncomplicated; Z20.828 Contact with and (suspected) exposure to other viral communicable diseases; I10 Essential (primary) hypertension; Z91.14 Patient's other noncompliance with medication regimen; Z91.19 Patient's noncompliance with other medical treatment and regimen; F41.9 Anxiety disorder, unspecified; Y92.89 Other specified places as the place of occurrence of the external cause; K21.9 Gastro-esophageal reflux disease without esophagitis; F10.10 Alcohol abuse, uncomplicated; Y90.9 Presence of alcohol in blood, level not specified; G47.00 Insomnia, unspecified; E55.9 Vitamin D deficiency, unspecified; E66.9 Obesity, unspecified; Z68.31 Body mass index [BMI] 31.0-31.9, adult
CPT/HCPCS: 84132; 87426; 93005; 99291; G0480; G0481; J3480

== ENCOUNTER 2020-02-18 07:18 | Emergency (ER) | payer MEDICARE, OTHER ==
[~2020-02-18] VITALS: Ht 170.2 cm; Wt 100.0 kg
[~2020-02-18 07:18] MED LIST changes: +FLUO-191 PO; -NALT50TA6 PO; -OLAN10TA3 PO
[2020-02-18] MEDS ORDERED: ZOLPIDEM TARTRATE 10 MG TABLET PO PRN (09:00)
[2020-02-18] MEDS ORDERED: OLANZapine 5 MG RAPDIS TABLET PO PRN (09:00)
[2020-02-18] MEDS ORDERED: LORazepam 2 MG TABLET PO PRN (09:00)
[2020-02-18 09:03] LABS: BASOPHILS % (AUTO) 0.8 % (0.0-2.0); EOSINOPHILS % (AUTO) 1.3 % (1.0-6.0); HEMATOCRIT 42.8 % (41-53); HEMOGLOBIN 14.3 g/dL (13.5-17.5); LYMPHOCYTES # (AUTO) 2.2 K/uL (1.0-4.8); LYMPHOCYTES % (AUTO) 22.3 % (22.0-44.0); MEAN CORPUSCULAR HEMOGLOBIN 30.1 pg (26.0-34.0); MEAN CORPUSCULAR HGB CONC 33.5 G/dL (31.0-37.0); MEAN CORPUSCULAR VOLUME 90 fL (80-100); MONOCYTES % (AUTO) 10.3 % (2.0-9.0); NEUTROPHILS # (AUTO) 6.6 K/uL (1.8-7.7); NEUTROPHILS % (AUTO) 65.3 % (40.0-70.0); PLATELET COUNT (AUTO) 299 K/uL (150-450); RED BLOOD CELL COUNT(AUTO) 4.76 MIL/uL (4.50-5.90); RED CELL DISTRIBUTION WIDTH 14.3 % (11.5-14.5)
[2020-02-18 09:14] LABS: ANION GAP 8 mmol/L (8-16); CALCIUM, TOTAL 8.8 mg/dL (8.8-10.5); CARBON DIOXIDE 27 mmol/L (22-29); CHLORIDE 105 mmol/L (98-107); CREATININE 0.96 mg/dL (0.60-1.30); GLOMERULAR FILTR. RATE CALC > 60 mL/min (>60); GLUCOSE,RANDOM 72 mg/dL (70-110); POTASSIUM 3.7 mmol/L (3.5-5.1); SODIUM SERUM 140 mmol/L (136-145); UREA NITROGEN, BLOOD 14 mg/dL (7-18)
[2020-02-18 09:25] LABS: ALANINE AMINOTRANSFERASE 42 U/L (12-78); ALBUMIN 3.6 g/dL (3.4-5.0); ALKALINE PHOSPHATASE 82 U/L (46-116); ASPARTATE AMINOTRANSFERASE 32 U/L (15-37); TOTAL PROTEIN, SERUM 7.3 g/dL (6.4-8.2); VALPROIC ACID < 3 mcg/mL (50-100)
[2020-02-18 11:17] VITALS: BP 130/82
[2020-02-18] MEDS ORDERED: LORazepam 1 MG TABLET PO ONE (12:00)
== END 2020-02-18 11:55 | disposition home or self-care (01) ==
LOC: EMS 07:18
DX: F10.129 Alcohol abuse with intoxication, unspecified (principal); F41.9 Anxiety disorder, unspecified; I10 Essential (primary) hypertension; E11.9 Type 2 diabetes mellitus without complications; F15.90 Other stimulant use, unspecified, uncomplicated; Z79.899 Other long term (current) drug therapy; Y90.1 Blood alcohol level of 20-39 mg/100 ml
CPT/HCPCS: 80053; 80164; 85025; 99285; G0480

== ENCOUNTER 2020-02-18 12:12 | Emergency (ER) | payer MEDICARE, OTHER | END 2020-02-18 12:33 | disposition left against medical advice (07) | LOC: EMS 12:12 | DX: F41.9 Anxiety disorder, unspecified (principal); Z53.21 Procedure and treatment not carried out due to patient leaving prior to being seen by health care provider ==

== ENCOUNTER 2020-07-25 22:29 | Emergency (ER) | payer MEDICARE, OTHER ==
[~2020-07-25] VITALS: Ht 172.7 cm; Wt 88.0 kg
[~2020-07-25 22:29] MED LIST changes: +DISU250 PO; -FLUO-191 PO; +MELA5TAB3 PO; -OLAN10TA22 PO; +QUET200T29 PO; +SERT-440 PO; +TRAZ150 PO
[2020-07-26 02:39] LABS: COVID AG,FIA SOURCE NASOPHARYNGEAL
[2020-07-26] MEDS ORDERED: DiphenhydrAMINE HCL 50 MG/ML VIAL IM ONE (02:45)
[2020-07-26] MEDS ORDERED: LORazepam 2 MG/ML VIAL IM ONE (02:45)
[2020-07-26] MEDS ORDERED: HALOPERIDOL LACTATE 5 MG/ML VIAL IM ONE (02:45)
[2020-07-26 04:12] LABS: BASOPHILS % (AUTO) 0.3 % (0.0-2.0); EOSINOPHILS % (AUTO) 0.9 % (1.0-6.0); HEMATOCRIT 45.3 % (41-53); HEMOGLOBIN 15.4 g/dL (13.5-17.5); LYMPHOCYTES # (AUTO) 2.2 K/uL (1.0-4.8); LYMPHOCYTES % (AUTO) 19.2 % (22.0-44.0); MEAN CORPUSCULAR HEMOGLOBIN 30.2 pg (26.0-34.0); MEAN CORPUSCULAR VOLUME 89 fL (80-100); MONOCYTES # (AUTO) 1.1 K/uL (0.1-1.0); MONOCYTES % (AUTO) 9.5 % (2.0-9.0); NEUTROPHILS # (AUTO) 8.1 K/uL (1.8-7.7); NEUTROPHILS % (AUTO) 70.1 % (40.0-70.0); PLATELET COUNT (AUTO) 303 K/uL (150-450); RED CELL DISTRIBUTION WIDTH 13.5 % (11.5-14.5)
[2020-07-26 04:22] LABS: ANION GAP 7 mmol/L (8-16); CALCIUM, TOTAL 8.8 mg/dL (8.8-10.5); CARBON DIOXIDE 29 mmol/L (22-29); CHLORIDE 109 mmol/L (98-107); CREATININE 1.11 mg/dL (0.60-1.30); GLOMERULAR FILTR. RATE CALC > 60 mL/min (>60); GLUCOSE,RANDOM 99 mg/dL (70-110); POTASSIUM 4.2 mmol/L (3.5-5.1); SODIUM SERUM 145 mmol/L (136-145); UREA NITROGEN, BLOOD 19 mg/dL (7-18)
[2020-07-26 04:27] LABS: ALANINE AMINOTRANSFERASE 31 U/L (12-78); ALBUMIN 3.8 g/dL (3.4-5.0); ALKALINE PHOSPHATASE 111 U/L (46-116); ASPARTATE AMINOTRANSFERASE 22 U/L (15-37); BILIRUBIN,TOTAL 0.2 mg/dL (0.1-1.0); TOTAL PROTEIN, SERUM 7.5 g/dL (6.4-8.2)
[2020-07-26 04:45] VITALS: BP 128/86
== END 2020-07-26 06:38 | disposition home or self-care (01) ==
LOC: EMS 22:29
DX: F20.0 Paranoid schizophrenia (principal); R45.851 Suicidal ideations; F41.9 Anxiety disorder, unspecified; I10 Essential (primary) hypertension; F19.90 Other psychoactive substance use, unspecified, uncomplicated; Z20.822 Contact with and (suspected) exposure to COVID-19
CPT/HCPCS: 36415; 80053; 85025; 87426; 96372; 99285; G0480; J1200; J1630; J2060

== ENCOUNTER 2022-01-22 23:39 | Inpatient (IN) | payer MEDICARE, MEDICAID ==
[~2022-01-22] VITALS: Ht 170.2 cm; Wt 94.9 kg
[~2022-01-22 23:39] MED LIST changes: -DISU250 PO; +FLUO20CA36 PO; -MELA5TAB3 PO; +MELA5TAB40 PO; -QUET200T29 PO; -SERT-440 PO; +TRAZ-283 PO; -TRAZ150 PO
[2022-01-23] MEDS ORDERED: HALOPERIDOL LACTATE 5 MG/ML VIAL ONE (00:51)
[2022-01-23] MEDS ORDERED: LORazepam 2 MG/ML VIAL ONE (00:51)
[2022-01-23] MEDS ORDERED: DiphenhydrAMINE HCL 50 MG/ML VIAL ONE (00:51)
[2022-01-23 00:55] LABS: BASOPHILS % (AUTO) 0.6 % (0.0-2.0); EOSINOPHILS % (AUTO) 0.4 % (1.0-6.0); HEMATOCRIT 51.3 % (41-53); HEMOGLOBIN 17.3 g/dL (13.5-17.5); LYMPHOCYTES # (AUTO) 2.7 K/uL (1.0-4.8); LYMPHOCYTES % (AUTO) 18.2 % (22.0-44.0); MEAN CORPUSCULAR HEMOGLOBIN 29.8 pg (26.0-34.0); MEAN CORPUSCULAR HGB CONC 33.8 G/dL (31.0-37.0); MEAN CORPUSCULAR VOLUME 88 fL (80-100); MONOCYTES % (AUTO) 6.6 % (2.0-9.0); NEUTROPHILS # (AUTO) 11.1 K/uL (1.8-7.7); NEUTROPHILS % (AUTO) 74.2 % (40.0-70.0); PLATELET COUNT (AUTO) 362 K/uL (150-450); RED BLOOD CELL COUNT(AUTO) 5.81 MIL/uL (4.50-5.90); RED CELL DISTRIBUTION WIDTH 14.1 % (11.5-14.5)
[2022-01-23] MEDS ORDERED: LORazepam 2 MG/ML VIAL IM ONE (01:00)
[2022-01-23] MEDS ORDERED: DiphenhydrAMINE HCL 50 MG/ML VIAL IM ONE (01:00)
[2022-01-23] MEDS ORDERED: HALOPERIDOL LACTATE 5 MG/ML VIAL IM ONE (01:00)
[2022-01-23 01:04] LABS: ANION GAP 12 mmol/L (8-16); CALCIUM, TOTAL 10.4 mg/dL (8.8-10.5); CARBON DIOXIDE 25 mmol/L (22-29); CHLORIDE 97 mmol/L (98-107); CREATININE 0.92 mg/dL (0.60-1.30); GLUCOSE,RANDOM 122 mg/dL (70-110); POTASSIUM 3.9 mmol/L (3.5-5.1); SODIUM SERUM 134 mmol/L (136-145); UREA NITROGEN, BLOOD 13 mg/dL (7-18)
[2022-01-23 01:05] LABS: GLOMERULAR FILTR. RATE CALC > 60 mL/min (>60)
[2022-01-23 01:10] LABS: ALANINE AMINOTRANSFERASE 52 U/L (12-78); ALBUMIN 4.6 g/dL (3.4-5.0); ALKALINE PHOSPHATASE 104 U/L (46-116); ASPARTATE AMINOTRANSFERASE 29 U/L (15-37); BILIRUBIN,TOTAL 0.7 mg/dL (0.1-1.0); TOTAL PROTEIN, SERUM 8.4 g/dL (6.4-8.2)
[2022-01-23 01:11] LABS: VALPROIC ACID < 3 mcg/mL (50-100)
[2022-01-23 01:34] LABS: COVID AG,FIA SOURCE NASAL SWAB
[2022-01-23] MEDS ORDERED: ZOLPIDEM TARTRATE 10 MG TABLET PO PRN (06:15)
[2022-01-23] MEDS ORDERED: HALOPERIDOL 5 MG TABLET PO PRN (06:15)
[2022-01-23] MEDS: LORazepam 2 MG TABLET PO PRN (08:46)
[2022-01-23 10:30] VITALS: BP 141/91
[2022-01-23] MEDS ORDERED: INFLUENZA VIRUS VACCINE QVS 2022-23 (6MO+)/PF 60 MCG/0.5 ML SYRINGE IM. ONE (10:45)
[2022-01-23] MEDS ORDERED: HydrOXYzine PAMOATE 50 MG CAPSULE PO PRN (11:00)
[2022-01-23] MEDS ORDERED: TUBERCULIN, PURIFIED PROTEIN DERIVATIVE 5 TU/0.1 ML SYRINGE ID ONE (11:00)
[2022-01-23] MEDS ORDERED: MAG HYDROX/AL HYDROX/SIMETH ES 30 ML SUSPENSION UDCUP PO PRN (11:00)
[2022-01-23] MEDS ORDERED: LOPERAMIDE HCL 2 MG CAPSULE PO PRN (11:00)
[2022-01-23] MEDS ORDERED: PROMETHAZINE HCL 25 MG TABLET PO PRN (11:00)
[2022-01-23] MEDS ORDERED: ACETAMINOPHEN 325 MG TABLET PO PRN (11:00)
[2022-01-23] MEDS ORDERED: OLANZapine 5 MG RAPDIS TABLET PO PRN (11:00)
[2022-01-23] MEDS ORDERED: MAGNESIUM HYDROXIDE SUSPENSION 30 ML UDCUP PO PRN (11:00)
[2022-01-23] MEDS ORDERED: GuaiFENesin/D-METHORPHAN [SUGAR-FREE] 200-20MG/10 ML SYRUP UDCUP PO PRN (11:00)
[2022-01-23] MEDS ORDERED: PALIPERIDONE PALMITATE 234 MG/1.5 ML SYRINGE IM ONE (12:00)
[2022-01-23 12:15] LABS: APPEARANCE,URINE CLEAR (CLEAR); BILIRUBIN,URINE NEGATIVE (NEGATIVE); GLUCOSE, URINE (UA) NEGATIVE (NEGATIVE); KETONES,URINE NEGATIVE (NEGATIVE); LEUKOCYTE ESTERASE ,URINE NEGATIVE (NEGATIVE); NITRATE,URINE NEGATIVE (NEGATIVE); OCCULT BLOOD,URINE NEGATIVE (NEGATIVE); PROTEIN,URINE NEGATIVE (NEGATIVE); SPECIFIC GRAVITIY, URINE 1.011 (1.003-1.030); UROBILINOGEN,URINE <=1.0 mg/dL (<=1.0)
[2022-01-23 12:20] LABS: AMPHET/METH SCREEN,URINE POSITIVE (NEGATIVE); BARBITURATE SCREEN, URINE NEGATIVE (NEGATIVE); BENZODIAZEPINES SCREEN,URINE NEGATIVE (NEGATIVE); CANNABINOID SCREEN,URINE POSITIVE (NEGATIVE); COCAINE SCREEN,URINE NEGATIVE (NEGATIVE); METHADONE SCREEN, URINE NEGATIVE (NEGATIVE); OPIATE SCREEN,URINE NEGATIVE (NEGATIVE)
[2022-01-23 12:32] LABS: PHENCYCLIDINE SCREEN,URINE NEGATIVE (NEGATIVE)
[2022-01-23 16:42] VITALS: BP 120/70
[2022-01-23] MEDS: THIAMINE 100 MG TABLET PO SCH (16:50)
[2022-01-23] MEDS: DIVALPROEX SODIUM 500 MG ER TABLET PO SCH (20:41)
[2022-01-23] MEDS: MELATONIN 5 MG TABLET PO SCH (20:42)
[2022-01-23] MEDS ORDERED: OLANZapine 5 MG RAPDIS TABLET PO SCH (21:00)
[2022-01-24 07:17] LABS: FREE T4 (FREE THYROXINE) 1.74 ng/dL (0.76-1.46); THYROID STIMULATING HORMONE 0.24 uIU/mL (0.36-3.74)
[2022-01-24 07:23] LABS: HEMOGLOBIN A1C 5.1 % (3.8-5.6)
[2022-01-24 08:07] VITALS: BP 136/76
[2022-01-24] MEDS: MULTIVITAMINS WITH MINERALS, THERAPEUTIC TABLET PO SCH (08:22)
[2022-01-24] MEDS: FOLIC ACID 1 MG TABLET PO SCH (08:22)
[2022-01-24] MEDS: FLUoxetine HCL 20 MG CAPSULE PO SCH (08:22)
[2022-01-24] MEDS: OMEGA-3/DHA/EPA/FISH OIL 1,000 MG CAPSULE PO SCH (08:22)
[2022-01-24] MEDS: NALTREXONE HCL 50 MG TABLET PO SCH (08:22)
[2022-01-24] MEDS: THIAMINE 100 MG TABLET PO SCH ×2 (08:22→16:26)
[2022-01-24] MEDS: LORazepam 2 MG TABLET PO PRN (11:47)
[2022-01-24 16:09] VITALS: BP 122/74
[2022-01-24] MEDS ORDERED: OMEG-135 PO (17:07)
[2022-01-24] MEDS ORDERED: MELA5TAB40 PO (17:07)
[2022-01-24] MEDS ORDERED: TRAZ-257 PO (17:07)
[2022-01-24] MEDS ORDERED: NALT50TA PO (17:07)
[2022-01-24] MEDS ORDERED: OLAN10TA26 PO (17:07)
[2022-01-24] MEDS ORDERED: DIVA-80 PO (17:07)
[2022-01-24] MEDS ORDERED: PROZ20 PO (17:07)
[2022-01-24] MEDS: TraZODone HCL 100 MG TABLET PO SCH (20:56)
[2022-01-24] MEDS: DIVALPROEX SODIUM 500 MG ER TABLET PO SCH (20:56)
[2022-01-24] MEDS: OLANZapine 10 MG RAPDIS TABLET PO SCH (20:57)
[2022-01-24] MEDS: MELATONIN 5 MG TABLET PO SCH (20:57)
[2022-01-25] MEDS: LORazepam 2 MG TABLET PO PRN ×3 (03:19→19:41)
[2022-01-25] MEDS: NALTREXONE HCL 50 MG TABLET PO SCH (08:05)
[2022-01-25] MEDS: THIAMINE 100 MG TABLET PO SCH ×2 (08:05→16:17)
[2022-01-25] MEDS: MULTIVITAMINS WITH MINERALS, THERAPEUTIC TABLET PO SCH (08:05)
[2022-01-25] MEDS: OMEGA-3/DHA/EPA/FISH OIL 1,000 MG CAPSULE PO SCH (08:05)
[2022-01-25] MEDS: FOLIC ACID 1 MG TABLET PO SCH (08:05)
[2022-01-25] MEDS: FLUoxetine HCL 20 MG CAPSULE PO SCH (08:06)
[2022-01-25 10:15] VITALS: BP 109/69
[2022-01-25 16:00] VITALS: BP 113/76
[2022-01-25] MEDS: OLANZapine 10 MG RAPDIS TABLET PO SCH (20:25)
[2022-01-25] MEDS: TraZODone HCL 100 MG TABLET PO SCH (20:25)
[2022-01-25] MEDS: DIVALPROEX SODIUM 500 MG ER TABLET PO SCH (20:25)
[2022-01-25] MEDS: MELATONIN 5 MG TABLET PO SCH (20:25)
[2022-01-26] MEDS: MULTIVITAMINS WITH MINERALS, THERAPEUTIC TABLET PO SCH (08:30)
[2022-01-26] MEDS: FLUoxetine HCL 20 MG CAPSULE PO SCH (08:30)
[2022-01-26] MEDS: THIAMINE 100 MG TABLET PO SCH (08:30)
[2022-01-26] MEDS: FOLIC ACID 1 MG TABLET PO SCH (08:30)
[2022-01-26] MEDS: OMEGA-3/DHA/EPA/FISH OIL 1,000 MG CAPSULE PO SCH (08:30)
[2022-01-26] MEDS: LORazepam 2 MG TABLET PO PRN (08:33)
[2022-01-26] MEDS: NALTREXONE HCL 50 MG TABLET PO SCH (08:35)
[2022-01-26 08:40] VITALS: BP 105/60
[2022-01-27] MEDS ORDERED: PALIPERIDONE PALMITATE 156 MG/ML SYRINGE IM ONE (09:00)
== END 2022-01-26 13:45 | disposition home or self-care (01) | DRG 885 ==
LOC: EMS 23:40 → 3EC 01-23 09:42
PROVIDERS: ADMIT Psychiatry & Neurology Psychiatry; ATTEND Psychiatry & Neurology Psychiatry
DX: F20.9 Schizophrenia, unspecified (principal); N18.9 Chronic kidney disease, unspecified; E87.1 Hypo-osmolality and hyponatremia; D72.829 Elevated white blood cell count, unspecified; E03.9 Hypothyroidism, unspecified; F41.0 Panic disorder [episodic paroxysmal anxiety]; F41.9 Anxiety disorder, unspecified; I12.9 Hypertensive chronic kidney disease with stage 1 through stage 4 chronic kidney disease, or unspecified chronic kidney disease; K21.9 Gastro-esophageal reflux disease without esophagitis; Z20.822 Contact with and (suspected) exposure to COVID-19; Z55.9 Problems related to education and literacy, unspecified; Z59.9 Problem related to housing and economic circumstances, unspecified; Z63.9 Problem related to primary support group, unspecified; Z65.3 Problems related to other legal circumstances; Z87.891 Personal history of nicotine dependence; Z91.14 Patient's other noncompliance with medication regimen; Z91.199 Patient's noncompliance with other medical treatment and regimen due to unspecified reason; Z79.899 Other long term (current) drug therapy
CPT/HCPCS: 80053; 80061; 80164; 81003; 83036; 84439; 84443; 85025; 86592; 99285; G0480; J1200; J1630; J2060; Q9967

== ENCOUNTER 2022-05-02 13:18 | Inpatient (IN) | payer MEDICARE, MEDICAID ==
[~2022-05-02] VITALS: Ht 165.1 cm; Wt 97.5 kg
[~2022-05-02 13:18] MED LIST changes: -DIVA-80 PO; +DIVA500T53 PO; -FLUO20CA36 PO; +OLAN10TA26 PO; +PROZ20 PO; +TRAZ-257 PO; -TRAZ-283 PO
[2022-05-02 14:55] LABS: EOSINOPHILS % (AUTO) 0.1 % (1.0-6.0); HEMATOCRIT 49.9 % (41-53); LYMPHOCYTES # (AUTO) 2.6 K/uL (1.0-4.8); LYMPHOCYTES % (AUTO) 19.4 % (22.0-44.0); MEAN CORPUSCULAR HEMOGLOBIN 29.8 pg (26.0-34.0); MEAN CORPUSCULAR HGB CONC 34.1 G/dL (31.0-37.0); MEAN CORPUSCULAR VOLUME 87 fL (80-100); MONOCYTES # (AUTO) 0.9 K/uL (0.1-1.0); MONOCYTES % (AUTO) 6.4 % (2.0-9.0); NEUTROPHILS # (AUTO) 9.9 K/uL (1.8-7.7); NEUTROPHILS % (AUTO) 73.1 % (40.0-70.0); PLATELET COUNT (AUTO) 360 K/uL (150-450); RED BLOOD CELL COUNT(AUTO) 5.71 MIL/uL (4.50-5.90); RED CELL DISTRIBUTION WIDTH 13.5 % (11.5-14.5)
[2022-05-02 15:14] LABS: ANION GAP 11 mmol/L (8-16); CALCIUM, TOTAL 9.6 mg/dL (8.8-10.5); CARBON DIOXIDE 27 mmol/L (22-29); CHLORIDE 105 mmol/L (98-107); CREATININE 0.89 mg/dL (0.60-1.30); GLOMERULAR FILTR. RATE CALC > 60 mL/min (>60); GLUCOSE,RANDOM 115 mg/dL (70-110); POTASSIUM 4.1 mmol/L (3.5-5.1); SODIUM SERUM 143 mmol/L (136-145); UREA NITROGEN, BLOOD 15 mg/dL (7-18)
[2022-05-02 15:19] LABS: ALANINE AMINOTRANSFERASE 34 U/L (12-78); ALBUMIN 4.3 g/dL (3.4-5.0); ALKALINE PHOSPHATASE 89 U/L (46-116); ASPARTATE AMINOTRANSFERASE 22 U/L (15-37); BILIRUBIN,TOTAL 0.6 mg/dL (0.1-1.0); TOTAL PROTEIN, SERUM 8.2 g/dL (6.4-8.2)
[2022-05-02] MEDS ORDERED: LORazepam 2 MG TABLET PO ONE (19:15)
[2022-05-02] MEDS ORDERED: OLANZapine 5 MG RAPDIS TABLET PO ONE (19:15)
[2022-05-02 20:15] LABS: COVID AG,FIA SOURCE NASAL SWAB
[2022-05-02 22:47] VITALS: BP 130/85
[2022-05-03] MEDS: LORazepam 2 MG TABLET PO PRN ×4 (01:05→17:18)
[2022-05-03] MEDS ORDERED: ACETAMINOPHEN 325 MG TABLET PO PRN (05:30)
[2022-05-03] MEDS ORDERED: ALBUTEROL SULFATE HFA 90 MCG/PUFF 8 GM INHALER IH PRN (05:30)
[2022-05-03] MEDS ORDERED: LOPERAMIDE HCL 2 MG CAPSULE PO PRN (05:30)
[2022-05-03] MEDS ORDERED: BENZOCAINE/MENTHOL LOZENGE PO PRN (05:30)
[2022-05-03] MEDS ORDERED: BACITRACIN 28 GM OINTMENT TP PRN (05:30)
[2022-05-03] MEDS ORDERED: PETROLATUM,WHITE 28 GM JELLY TP PRN (05:30)
[2022-05-03] MEDS ORDERED: DOCUSATE SODIUM 100 MG CAPSULE PO PRN (05:30)
[2022-05-03] MEDS ORDERED: ONDANSETRON HCL 4 MG TABLET PO PRN (05:30)
[2022-05-03] MEDS ORDERED: MAGNESIUM HYDROXIDE SUSPENSION 30 ML UDCUP PO PRN (05:30)
[2022-05-03] MEDS ORDERED: MAG HYDROX/AL HYDROX/SIMETH ES 30 ML SUSPENSION UDCUP PO PRN (05:30)
[2022-05-03] MEDS ORDERED: OMEPRAZOLE 20 MG CAPSULE PO PRN (05:30)
[2022-05-03] MEDS: HALOPERIDOL 5 MG TABLET PO PRN ×3 (07:19→17:18)
[2022-05-03] MEDS: OMEGA-3/DHA/EPA/FISH OIL 1,000 MG CAPSULE PO SCH (07:20)
[2022-05-03] MEDS: CHOLECALCIFEROL (VIT D3) 1,000 UNITS [25 MCG] TABLET PO SCH (07:20)
[2022-05-03] MEDS: LITHIUM CARBONATE 300 MG CAPSULE PO SCH ×2 (10:54→17:18)
[2022-05-03] MEDS: FLUoxetine HCL 20 MG CAPSULE PO SCH (10:54)
[2022-05-03] MEDS: TraZODone HCL 100 MG TABLET PO SCH (21:43)
[2022-05-03] MEDS: OLANZapine 10 MG RAPDIS TABLET PO SCH (21:43)
[2022-05-03] MEDS: DIVALPROEX SODIUM 500 MG ER TABLET PO SCH (21:43)
[2022-05-03] MEDS: ZOLPIDEM TARTRATE 10 MG TABLET PO PRN (21:53)
[2022-05-04] MEDS: FLUoxetine HCL 20 MG CAPSULE PO SCH (08:27)
[2022-05-04] MEDS: OMEGA-3/DHA/EPA/FISH OIL 1,000 MG CAPSULE PO SCH (08:27)
[2022-05-04] MEDS: LITHIUM CARBONATE 300 MG CAPSULE PO SCH ×2 (08:27→16:05)
[2022-05-04] MEDS: CHOLECALCIFEROL (VIT D3) 1,000 UNITS [25 MCG] TABLET PO SCH (08:28)
[2022-05-04] MEDS: LORazepam 2 MG TABLET PO PRN ×2 (16:06→22:40)
[2022-05-04 16:18] VITALS: BP 155/85
[2022-05-04 20:13] VITALS: BP 143/80
[2022-05-04] MEDS: TraZODone HCL 100 MG TABLET PO SCH (20:58)
[2022-05-04] MEDS: OLANZapine 10 MG RAPDIS TABLET PO SCH (20:58)
[2022-05-04] MEDS: DIVALPROEX SODIUM 500 MG ER TABLET PO SCH (20:58)
[2022-05-04] MEDS: ZOLPIDEM TARTRATE 10 MG TABLET PO PRN (22:01)
[2022-05-04] MEDS: HALOPERIDOL 5 MG TABLET PO PRN (22:39)
[2022-05-05] MEDS: OMEGA-3/DHA/EPA/FISH OIL 1,000 MG CAPSULE PO SCH (08:17)
[2022-05-05] MEDS: CHOLECALCIFEROL (VIT D3) 1,000 UNITS [25 MCG] TABLET PO SCH (08:17)
[2022-05-05] MEDS: FLUoxetine HCL 20 MG CAPSULE PO SCH (08:17)
[2022-05-05] MEDS: LITHIUM CARBONATE 300 MG CAPSULE PO SCH ×2 (08:17→16:11)
[2022-05-05 09:58] VITALS: BP 138/91
[2022-05-05] MEDS: LORazepam 2 MG TABLET PO PRN ×2 (12:51→21:45)
[2022-05-05] MEDS: HALOPERIDOL 5 MG TABLET PO PRN (13:25)
[2022-05-05 16:22] VITALS: BP 144/91
[2022-05-05] MEDS: OLANZapine 10 MG RAPDIS TABLET PO SCH (21:00)
[2022-05-05] MEDS: DIVALPROEX SODIUM 500 MG ER TABLET PO SCH (21:01)
[2022-05-05] MEDS: TraZODone HCL 100 MG TABLET PO SCH (21:01)
[2022-05-05] MEDS: ZOLPIDEM TARTRATE 10 MG TABLET PO PRN (22:16)
[2022-05-06 07:53] LABS: LITHIUM 0.27 mmol/L (0.60-1.20)
[2022-05-06 08:00] VITALS: BP 158/104
[2022-05-06] MEDS: HALOPERIDOL 5 MG TABLET PO PRN ×2 (08:45→17:39)
[2022-05-06] MEDS: OMEGA-3/DHA/EPA/FISH OIL 1,000 MG CAPSULE PO SCH (08:45)
[2022-05-06] MEDS: CHOLECALCIFEROL (VIT D3) 1,000 UNITS [25 MCG] TABLET PO SCH (08:45)
[2022-05-06] MEDS: FLUoxetine HCL 20 MG CAPSULE PO SCH (08:45)
[2022-05-06] MEDS: LORazepam 1 MG TABLET PO PRN ×2 (08:46→17:39)
[2022-05-06] MEDS: LITHIUM CARBONATE 300 MG CAPSULE PO SCH ×2 (08:46→17:39)
[2022-05-06] MEDS: ZOLPIDEM TARTRATE 10 MG TABLET PO PRN (20:16)
[2022-05-06] MEDS: DIVALPROEX SODIUM 500 MG ER TABLET PO SCH (20:16)
[2022-05-06] MEDS: OLANZapine 10 MG RAPDIS TABLET PO SCH (20:17)
[2022-05-06] MEDS: TraZODone HCL 100 MG TABLET PO SCH (21:16)
[2022-05-07] MEDS: HALOPERIDOL 5 MG TABLET PO PRN ×4 (08:02→22:21)
[2022-05-07] MEDS: CHOLECALCIFEROL (VIT D3) 1,000 UNITS [25 MCG] TABLET PO SCH (08:02)
[2022-05-07] MEDS: OMEGA-3/DHA/EPA/FISH OIL 1,000 MG CAPSULE PO SCH (08:02)
[2022-05-07] MEDS: FLUoxetine HCL 20 MG CAPSULE PO SCH (08:02)
[2022-05-07] MEDS: LITHIUM CARBONATE 300 MG CAPSULE PO SCH ×2 (08:03→16:07)
[2022-05-07] MEDS: LORazepam 1 MG TABLET PO PRN ×2 (08:03→12:03)
[2022-05-07 08:30] VITALS: BP 152/101
[2022-05-07] MEDS: CloNIDine HCL 0.1 MG TABLET PO PRN (08:34)
[2022-05-07 09:34] VITALS: BP 112/70
[2022-05-07] MEDS: DIVALPROEX SODIUM 500 MG ER TABLET PO SCH (20:34)
[2022-05-07] MEDS: TraZODone HCL 100 MG TABLET PO SCH (20:35)
[2022-05-07] MEDS: OLANZapine 10 MG TABLET PO SCH (20:35)
[2022-05-07] MEDS: MIRTAZAPINE 15 MG TABLET PO SCH (20:35)
[2022-05-07] MEDS: ZOLPIDEM TARTRATE 10 MG TABLET PO PRN (21:27)
[2022-05-08 08:31] VITALS: BP 150/100
[2022-05-08] MEDS: FLUoxetine HCL 20 MG CAPSULE PO SCH (09:00)
[2022-05-08] MEDS: CHOLECALCIFEROL (VIT D3) 1,000 UNITS [25 MCG] TABLET PO SCH (09:00)
[2022-05-08] MEDS: LITHIUM CARBONATE 300 MG CAPSULE PO SCH ×2 (09:00→17:00)
[2022-05-08] MEDS: OMEGA-3/DHA/EPA/FISH OIL 1,000 MG CAPSULE PO SCH (09:00)
[2022-05-08 16:48] VITALS: BP 137/98
[2022-05-08 20:56] VITALS: BP 132/89
[2022-05-08] MEDS: DIVALPROEX SODIUM 500 MG ER TABLET PO SCH (21:13)
[2022-05-08] MEDS: OLANZapine 10 MG TABLET PO SCH (21:13)
[2022-05-08] MEDS: TraZODone HCL 100 MG TABLET PO SCH (21:14)
[2022-05-08] MEDS: MIRTAZAPINE 15 MG TABLET PO SCH (21:14)
[2022-05-08] MEDS: ZOLPIDEM TARTRATE 10 MG TABLET PO PRN (23:32)
[2022-05-09] MEDS: HALOPERIDOL 5 MG TABLET PO PRN ×2 (01:39→15:53)
[2022-05-09 08:09] VITALS: BP 153/108
[2022-05-09] MEDS: LITHIUM CARBONATE 300 MG CAPSULE PO SCH ×2 (08:45→16:22)
[2022-05-09] MEDS: OMEGA-3/DHA/EPA/FISH OIL 1,000 MG CAPSULE PO SCH (08:45)
[2022-05-09] MEDS: FLUoxetine HCL 20 MG CAPSULE PO SCH (08:45)
[2022-05-09] MEDS: CHOLECALCIFEROL (VIT D3) 1,000 UNITS [25 MCG] TABLET PO SCH (08:46)
[2022-05-09 11:10] LABS: COVID AG,FIA SOURCE NASAL SWAB
[2022-05-09 16:17] VITALS: BP 153/93
[2022-05-09] MEDS: OLANZapine 10 MG TABLET PO SCH (20:49)
[2022-05-09] MEDS: MIRTAZAPINE 15 MG TABLET PO SCH (20:49)
[2022-05-09] MEDS: DIVALPROEX SODIUM 500 MG ER TABLET PO SCH (20:49)
[2022-05-09] MEDS: TraZODone HCL 100 MG TABLET PO SCH (20:49)
[2022-05-09 20:56] VITALS: BP 133/93
[2022-05-09] MEDS: ZOLPIDEM TARTRATE 10 MG TABLET PO PRN (21:00)
[2022-05-10 08:47] VITALS: BP 149/100
[2022-05-10] MEDS: LITHIUM CARBONATE 300 MG CAPSULE PO SCH ×2 (09:02→16:40)
[2022-05-10] MEDS: FLUoxetine HCL 20 MG CAPSULE PO SCH (09:02)
[2022-05-10] MEDS: OMEGA-3/DHA/EPA/FISH OIL 1,000 MG CAPSULE PO SCH (09:02)
[2022-05-10] MEDS: CHOLECALCIFEROL (VIT D3) 1,000 UNITS [25 MCG] TABLET PO SCH (09:04)
[2022-05-10] MEDS: CloNIDine HCL 0.1 MG TABLET PO PRN (15:49)
[2022-05-10 16:10] VITALS: BP 178/103
[2022-05-10 17:20] VITALS: BP 140/109
[2022-05-10] MEDS: DIVALPROEX SODIUM 500 MG ER TABLET PO SCH (20:40)
[2022-05-10] MEDS: OLANZapine 10 MG TABLET PO SCH (20:40)
[2022-05-10] MEDS: MIRTAZAPINE 15 MG TABLET PO SCH (20:40)
[2022-05-10] MEDS: TraZODone HCL 100 MG TABLET PO SCH (20:40)
[2022-05-10 22:05] VITALS: BP 148/99
[2022-05-10] MEDS: ZOLPIDEM TARTRATE 10 MG TABLET PO PRN (22:20)
[2022-05-11 09:20] VITALS: BP 147/86
[2022-05-11] MEDS: LITHIUM CARBONATE 300 MG CAPSULE PO SCH ×2 (10:10→15:59)
[2022-05-11] MEDS: CHOLECALCIFEROL (VIT D3) 1,000 UNITS [25 MCG] TABLET PO SCH (10:10)
[2022-05-11] MEDS: OMEGA-3/DHA/EPA/FISH OIL 1,000 MG CAPSULE PO SCH (10:10)
[2022-05-11] MEDS: FLUoxetine HCL 20 MG CAPSULE PO SCH (10:10)
[2022-05-11 16:26] VITALS: BP 123/86
[2022-05-11] MEDS: HALOPERIDOL 5 MG TABLET PO PRN (17:04)
[2022-05-11] MEDS: OLANZapine 10 MG TABLET PO SCH (20:30)
[2022-05-11] MEDS: DIVALPROEX SODIUM 500 MG ER TABLET PO SCH (20:31)
[2022-05-11] MEDS: MIRTAZAPINE 15 MG TABLET PO SCH (20:31)
[2022-05-11] MEDS: TraZODone HCL 100 MG TABLET PO SCH (20:31)
[2022-05-11] MEDS: ZOLPIDEM TARTRATE 10 MG TABLET PO PRN (21:57)
[2022-05-12] MEDS: FLUoxetine HCL 20 MG CAPSULE PO SCH (08:46)
[2022-05-12] MEDS: OMEGA-3/DHA/EPA/FISH OIL 1,000 MG CAPSULE PO SCH (08:46)
[2022-05-12] MEDS: CHOLECALCIFEROL (VIT D3) 1,000 UNITS [25 MCG] TABLET PO SCH (08:46)
[2022-05-12] MEDS: LITHIUM CARBONATE 300 MG CAPSULE PO SCH ×3 (08:47→16:14)
[2022-05-12 08:58] VITALS: BP 142/96
[2022-05-12 16:19] VITALS: BP 156/94
[2022-05-12] MEDS: DIVALPROEX SODIUM 500 MG ER TABLET PO SCH (21:57)
[2022-05-12] MEDS: OLANZapine 10 MG TABLET PO SCH (21:57)
[2022-05-12] MEDS: TraZODone HCL 100 MG TABLET PO SCH (21:57)
[2022-05-12] MEDS: MIRTAZAPINE 15 MG TABLET PO SCH (21:58)
[2022-05-12] MEDS: ZOLPIDEM TARTRATE 10 MG TABLET PO PRN (22:47)
[2022-05-12] MEDS: HALOPERIDOL 5 MG TABLET PO PRN (23:16)
[2022-05-13 01:40] VITALS: BP 138/90
[2022-05-13] MEDS: IBUPROFEN 600 MG TABLET PO PRN (01:45)
[2022-05-13 08:00] VITALS: BP 150/111
[2022-05-13] MEDS: CHOLECALCIFEROL (VIT D3) 1,000 UNITS [25 MCG] TABLET PO SCH (08:46)
[2022-05-13] MEDS: CloNIDine HCL 0.1 MG TABLET PO PRN (08:46)
[2022-05-13] MEDS: OMEGA-3/DHA/EPA/FISH OIL 1,000 MG CAPSULE PO SCH (08:46)
[2022-05-13] MEDS: HALOPERIDOL 5 MG TABLET PO PRN ×2 (08:47→21:37)
[2022-05-13] MEDS: FLUoxetine HCL 20 MG CAPSULE PO SCH (08:47)
[2022-05-13] MEDS: LITHIUM CARBONATE 300 MG CAPSULE PO SCH ×3 (08:47→18:07)
[2022-05-13 09:00] VITALS: BP 142/94
[2022-05-13 17:36] VITALS: BP 130/83
[2022-05-13] MEDS: OLANZapine 10 MG TABLET PO SCH (20:26)
[2022-05-13] MEDS: DIVALPROEX SODIUM 500 MG ER TABLET PO SCH (20:27)
[2022-05-13] MEDS: MIRTAZAPINE 15 MG TABLET PO SCH (20:27)
[2022-05-13] MEDS: TraZODone HCL 100 MG TABLET PO SCH (20:27)
[2022-05-13] MEDS: ZOLPIDEM TARTRATE 10 MG TABLET PO PRN (21:37)
[2022-05-14] MEDS: CHOLECALCIFEROL (VIT D3) 1,000 UNITS [25 MCG] TABLET PO SCH (08:18)
[2022-05-14] MEDS: FLUoxetine HCL 20 MG CAPSULE PO SCH (08:18)
[2022-05-14] MEDS: LITHIUM CARBONATE 300 MG CAPSULE PO SCH ×3 (08:18→16:41)
[2022-05-14] MEDS: OMEGA-3/DHA/EPA/FISH OIL 1,000 MG CAPSULE PO SCH (08:19)
[2022-05-14 09:29] VITALS: BP 157/95
[2022-05-14 17:17] VITALS: BP 161/96
[2022-05-14] MEDS: DIVALPROEX SODIUM 500 MG ER TABLET PO SCH (20:22)
[2022-05-14] MEDS: TraZODone HCL 100 MG TABLET PO SCH (20:22)
[2022-05-14] MEDS: MIRTAZAPINE 15 MG TABLET PO SCH (20:23)
[2022-05-14] MEDS: OLANZapine 10 MG TABLET PO SCH (20:23)
[2022-05-14] MEDS: ZOLPIDEM TARTRATE 10 MG TABLET PO PRN (22:55)
[2022-05-15 08:00] VITALS: BP 125/82
[2022-05-15] MEDS: FLUoxetine HCL 20 MG CAPSULE PO SCH (08:36)
[2022-05-15] MEDS: OMEGA-3/DHA/EPA/FISH OIL 1,000 MG CAPSULE PO SCH (08:37)
[2022-05-15] MEDS: LISINOPRIL 10 MG TABLET PO SCH (08:37)
[2022-05-15] MEDS: CHOLECALCIFEROL (VIT D3) 1,000 UNITS [25 MCG] TABLET PO SCH (08:37)
[2022-05-15] MEDS: LITHIUM CARBONATE 300 MG CAPSULE PO SCH ×3 (08:37→16:34)
[2022-05-15 16:06] VITALS: BP 144/86
[2022-05-15] MEDS: HALOPERIDOL 5 MG TABLET PO PRN (18:03)
[2022-05-15 20:41] VITALS: BP 117/68
[2022-05-15] MEDS: MIRTAZAPINE 15 MG TABLET PO SCH (21:07)
[2022-05-15] MEDS: OLANZapine 10 MG TABLET PO SCH (21:07)
[2022-05-15] MEDS: DIVALPROEX SODIUM 500 MG ER TABLET PO SCH (21:07)
[2022-05-15] MEDS: TraZODone HCL 100 MG TABLET PO SCH (21:07)
[2022-05-15] MEDS: ZOLPIDEM TARTRATE 10 MG TABLET PO PRN (23:50)
[2022-05-16 08:36] VITALS: BP 129/89
[2022-05-16 08:38] LABS: COVID AG,FIA SOURCE NASAL SWAB
[2022-05-16] MEDS: CHOLECALCIFEROL (VIT D3) 1,000 UNITS [25 MCG] TABLET PO SCH (09:20)
[2022-05-16] MEDS: LISINOPRIL 10 MG TABLET PO SCH (09:20)
[2022-05-16] MEDS: LITHIUM CARBONATE 300 MG CAPSULE PO SCH ×3 (09:20→17:33)
[2022-05-16] MEDS: FLUoxetine HCL 20 MG CAPSULE PO SCH (09:21)
[2022-05-16] MEDS: OMEGA-3/DHA/EPA/FISH OIL 1,000 MG CAPSULE PO SCH (09:21)
[2022-05-16 17:51] VITALS: BP 136/89
[2022-05-16] MEDS: OLANZapine 10 MG TABLET PO SCH (21:15)
[2022-05-16] MEDS: DIVALPROEX SODIUM 500 MG ER TABLET PO SCH (21:16)
[2022-05-16] MEDS: TraZODone HCL 100 MG TABLET PO SCH (21:16)
[2022-05-16] MEDS: MIRTAZAPINE 15 MG TABLET PO SCH (21:17)
[2022-05-16] MEDS: HALOPERIDOL 5 MG TABLET PO PRN (21:17)
[2022-05-16] MEDS: ZOLPIDEM TARTRATE 10 MG TABLET PO PRN (22:28)
[2022-05-17 08:00] VITALS: BP 138/81
[2022-05-17] MEDS: OMEGA-3/DHA/EPA/FISH OIL 1,000 MG CAPSULE PO SCH (08:15)
[2022-05-17] MEDS: FLUoxetine HCL 20 MG CAPSULE PO SCH (08:17)
[2022-05-17] MEDS: LITHIUM CARBONATE 300 MG CAPSULE PO SCH ×3 (08:17→16:14)
[2022-05-17] MEDS: CHOLECALCIFEROL (VIT D3) 1,000 UNITS [25 MCG] TABLET PO SCH (08:17)
[2022-05-17] MEDS: LISINOPRIL 10 MG TABLET PO SCH (08:17)
[2022-05-17 08:34] VITALS: BP 158/98
[2022-05-17 16:00] VITALS: BP 138/81
[2022-05-17] MEDS: DIVALPROEX SODIUM 500 MG ER TABLET PO SCH (21:19)
[2022-05-17] MEDS: OLANZapine 10 MG TABLET PO SCH (21:19)
[2022-05-17] MEDS: HALOPERIDOL 5 MG TABLET PO PRN (21:20)
[2022-05-17] MEDS: TraZODone HCL 100 MG TABLET PO SCH (21:20)
[2022-05-17] MEDS: MIRTAZAPINE 15 MG TABLET PO SCH (21:21)
[2022-05-17 21:28] VITALS: BP 140/95
[2022-05-17] MEDS: ZOLPIDEM TARTRATE 10 MG TABLET PO PRN (21:50)
[2022-05-18 08:15] VITALS: BP 130/92
[2022-05-18] MEDS: LITHIUM CARBONATE 300 MG CAPSULE PO SCH ×3 (08:51→17:05)
[2022-05-18] MEDS: FLUoxetine HCL 20 MG CAPSULE PO SCH (08:51)
[2022-05-18] MEDS: LISINOPRIL 10 MG TABLET PO SCH (08:51)
[2022-05-18] MEDS: CHOLECALCIFEROL (VIT D3) 1,000 UNITS [25 MCG] TABLET PO SCH (08:51)
[2022-05-18] MEDS: OMEGA-3/DHA/EPA/FISH OIL 1,000 MG CAPSULE PO SCH (08:51)
[2022-05-18 16:13] VITALS: BP 121/78
[2022-05-18] MEDS: OLANZapine 10 MG TABLET PO SCH (20:30)
[2022-05-18] MEDS: TraZODone HCL 100 MG TABLET PO SCH (20:30)
[2022-05-18] MEDS: MIRTAZAPINE 15 MG TABLET PO SCH (20:30)
[2022-05-18] MEDS: DIVALPROEX SODIUM 500 MG ER TABLET PO SCH (20:30)
[2022-05-18] MEDS: ZOLPIDEM TARTRATE 10 MG TABLET PO PRN (20:37)
[2022-05-19] MEDS: FLUoxetine HCL 20 MG CAPSULE PO SCH (08:14)
[2022-05-19] MEDS: CHOLECALCIFEROL (VIT D3) 1,000 UNITS [25 MCG] TABLET PO SCH (08:15)
[2022-05-19] MEDS: LISINOPRIL 10 MG TABLET PO SCH (08:15)
[2022-05-19] MEDS: LITHIUM CARBONATE 300 MG CAPSULE PO SCH ×3 (08:15→16:14)
[2022-05-19] MEDS: OMEGA-3/DHA/EPA/FISH OIL 1,000 MG CAPSULE PO SCH (08:15)
[2022-05-19 08:22] VITALS: BP 135/88
[2022-05-19] MEDS: IBUPROFEN 600 MG TABLET PO PRN (08:22)
[2022-05-19 09:22] VITALS: BP 132/78
[2022-05-19 16:06] VITALS: BP 134/88
[2022-05-19] MEDS: HALOPERIDOL 5 MG TABLET PO PRN (21:05)
[2022-05-19] MEDS: DIVALPROEX SODIUM 500 MG ER TABLET PO SCH (21:05)
[2022-05-19] MEDS: OLANZapine 10 MG TABLET PO SCH (21:05)
[2022-05-19] MEDS: MIRTAZAPINE 15 MG TABLET PO SCH (21:05)
[2022-05-19] MEDS: TraZODone HCL 100 MG TABLET PO SCH (21:06)
[2022-05-19] MEDS: ZOLPIDEM TARTRATE 10 MG TABLET PO PRN (21:55)
[2022-05-20 08:04] VITALS: BP 148/86
[2022-05-20] MEDS: LITHIUM CARBONATE 300 MG CAPSULE PO SCH ×3 (08:17→17:45)
[2022-05-20] MEDS: CHOLECALCIFEROL (VIT D3) 1,000 UNITS [25 MCG] TABLET PO SCH (08:17)
[2022-05-20] MEDS: FLUoxetine HCL 20 MG CAPSULE PO SCH (08:17)
[2022-05-20] MEDS: LISINOPRIL 10 MG TABLET PO SCH (08:17)
[2022-05-20] MEDS: OMEGA-3/DHA/EPA/FISH OIL 1,000 MG CAPSULE PO SCH (08:18)
[2022-05-20 16:07] VITALS: BP 118/75
[2022-05-20] MEDS: OLANZapine 10 MG TABLET PO SCH (21:03)
[2022-05-20] MEDS: DIVALPROEX SODIUM 500 MG ER TABLET PO SCH (21:04)
[2022-05-20] MEDS: TraZODone HCL 100 MG TABLET PO SCH (21:05)
[2022-05-20] MEDS: MIRTAZAPINE 15 MG TABLET PO SCH (21:06)
[2022-05-20] MEDS: ZOLPIDEM TARTRATE 10 MG TABLET PO PRN (21:06)
[2022-05-21] MEDS: LISINOPRIL 10 MG TABLET PO SCH (08:08)
[2022-05-21] MEDS: FLUoxetine HCL 20 MG CAPSULE PO SCH (08:08)
[2022-05-21] MEDS: OMEGA-3/DHA/EPA/FISH OIL 1,000 MG CAPSULE PO SCH (08:08)
[2022-05-21] MEDS: LITHIUM CARBONATE 300 MG CAPSULE PO SCH ×3 (08:08→17:18)
[2022-05-21] MEDS: CHOLECALCIFEROL (VIT D3) 1,000 UNITS [25 MCG] TABLET PO SCH (08:09)
[2022-05-21 08:24] VITALS: BP 123/72
[2022-05-21 16:32] VITALS: BP 149/66
[2022-05-21] MEDS: OLANZapine 10 MG TABLET PO SCH (20:38)
[2022-05-21] MEDS: DIVALPROEX SODIUM 500 MG ER TABLET PO SCH (20:38)
[2022-05-21] MEDS: MIRTAZAPINE 15 MG TABLET PO SCH (20:39)
[2022-05-21] MEDS: TraZODone HCL 100 MG TABLET PO SCH (20:39)
[2022-05-21 21:22] VITALS: BP 110/65
[2022-05-21] MEDS: ZOLPIDEM TARTRATE 10 MG TABLET PO PRN (22:00)
[2022-05-22 08:03] VITALS: BP 128/82
[2022-05-22] MEDS: LITHIUM CARBONATE 300 MG CAPSULE PO SCH ×3 (08:15→17:16)
[2022-05-22] MEDS: OMEGA-3/DHA/EPA/FISH OIL 1,000 MG CAPSULE PO SCH (08:15)
[2022-05-22] MEDS: FLUoxetine HCL 20 MG CAPSULE PO SCH (08:15)
[2022-05-22] MEDS: LISINOPRIL 10 MG TABLET PO SCH (08:15)
[2022-05-22] MEDS: CHOLECALCIFEROL (VIT D3) 1,000 UNITS [25 MCG] TABLET PO SCH (08:16)
[2022-05-22] MEDS ORDERED: DIVA500T69 PO (16:56)
[2022-05-22] MEDS ORDERED: OLAN10 PO (16:56)
[2022-05-22] MEDS ORDERED: LISI-661 PO (17:20)
== END 2022-05-22 19:45 | disposition home or self-care (01) | DRG 885 ==
LOC: EMS 13:20 → 3EC 20:00
PROVIDERS: ADMIT Psychiatry & Neurology Psychiatry; ATTEND Psychiatry & Neurology Psychiatry
DX: F25.9 Schizoaffective disorder, unspecified (principal); F17.200 Nicotine dependence, unspecified, uncomplicated; F41.0 Panic disorder [episodic paroxysmal anxiety]; F94.0 Selective mutism; I10 Essential (primary) hypertension; K21.9 Gastro-esophageal reflux disease without esophagitis; F41.9 Anxiety disorder, unspecified; E55.9 Vitamin D deficiency, unspecified; E66.9 Obesity, unspecified; Z68.35 Body mass index [BMI] 35.0-35.9, adult; Z20.822 Contact with and (suspected) exposure to COVID-19; F12.10 Cannabis abuse, uncomplicated; G47.00 Insomnia, unspecified; Z56.0 Unemployment, unspecified
CPT/HCPCS: 80053; 80164; 80178; 85025; 99285; G0480

== ENCOUNTER 2023-12-11 13:02 | Emergency (ER) | payer MEDICARE, OTHER ==
[~2023-12-11] VITALS: Ht 175.3 cm; Wt 104.5 kg
[~2023-12-11 13:02] MED LIST changes: -DIVA500T53 PO; +DIVA500T69 PO; +LISI-893 PO; -MELA5TAB40 PO; -NALT50TA PO; -OLAN10TA26 PO; +OLAN10TA74 PO; +OLAN5TAB52 PO; -OMEG-135 PO; -PROZ20 PO; -TRAZ-257 PO
[2023-12-11 13:08] VITALS: BP 142/89; PULSE 116; RESP 18; TEMP 98.2; O2SAT 99
[2023-12-11] MEDS: ACETAMINOPHEN 325 MG TABLET PO ONE (15:48)
[2023-12-11] MEDS: IBUPROFEN 400 MG TABLET PO ONE (15:48)
[2023-12-11] MEDS ORDERED: ACET-3385 PO (19:20)
== END 2023-12-12 01:34 | disposition home or self-care (01) ==
LOC: EMS 13:02
DX: S99.911A Unspecified injury of right ankle, initial encounter (principal); F10.20 Alcohol dependence, uncomplicated; F41.9 Anxiety disorder, unspecified; I10 Essential (primary) hypertension; F17.210 Nicotine dependence, cigarettes, uncomplicated; F20.9 Schizophrenia, unspecified; F12.90 Cannabis use, unspecified, uncomplicated; F15.90 Other stimulant use, unspecified, uncomplicated; Z90.49 Acquired absence of other specified parts of digestive tract; Z98.890 Other specified postprocedural states; X58.XXXA Exposure to other specified factors, initial encounter; Y93.89 Activity, other specified; Y92.89 Other specified places as the place of occurrence of the external cause; Y99.8 Other external cause status; Y90.9 Presence of alcohol in blood, level not specified
CPT/HCPCS: 99283

== ENCOUNTER 2024-09-04 10:03 | Inpatient (IN) | payer MEDICARE, MEDICAID ==
[~2024-09-04] VITALS: Ht 170.2 cm; Wt 97.5 kg
[~2024-09-04 10:03] MED LIST changes: +ACET-3385 PO; -OLAN10TA74 PO
[2024-09-04 10:24] LABS: PLATELET COUNT (AUTO) 373 K/uL (150-450); RED BLOOD CELL COUNT(AUTO) 6.11 MIL/uL (4.50-5.90); RED CELL DISTRIBUTION WIDTH 14.5 % (11.5-14.5); WHITE BLOOD COUNT (AUTO) 12.1 K/uL (4.5-11.0)
[2024-09-04 10:35] LABS: CALCIUM, TOTAL 9.4 mg/dL (8.8-10.5); CREATININE 0.76 mg/dL (0.60-1.30); GLOMERULAR FILTR. RATE CALC > 60 mL/min (>60); GLUCOSE,RANDOM 104 mg/dL (70-110); SODIUM SERUM 144 mmol/L (136-145); UREA NITROGEN, BLOOD 11 mg/dL (7-18)
[2024-09-04 10:56] LABS: COVID AG,FIA SOURCE NPH
[2024-09-04 12:11] LABS: SARS-COV2 (COVID) ANTIGEN,FIA Negative (Negative)
[2024-09-04 12:26] VITALS: O2SAT 98
[2024-09-04 12:38] LABS: APPEARANCE,URINE CLEAR (CLEAR); GLUCOSE, URINE (UA) NEGATIVE (NEGATIVE); LEUKOCYTE ESTERASE ,URINE NEGATIVE (NEGATIVE); NITRATE,URINE NEGATIVE (NEGATIVE); OCCULT BLOOD,URINE NEGATIVE (NEGATIVE); SPECIFIC GRAVITIY, URINE 1.017 (1.003-1.030)
[2024-09-04 12:40] LABS: PH,URINE DRUG SCREEN 6.5 (5.0-8.0)
[2024-09-04 12:44] LABS: ALCOHOL, URINE DRUG SCREEN NEGATIVE (NEGATIVE); AMPHET/METH SCREEN,URINE NEGATIVE (NEGATIVE); BARBITURATE SCREEN, URINE NEGATIVE (NEGATIVE); CANNABINOID SCREEN,URINE POSITIVE (NEGATIVE); COCAINE SCREEN,URINE NEGATIVE (NEGATIVE); METHADONE SCREEN, URINE NEGATIVE (NEGATIVE)
[2024-09-04] MEDS ORDERED: MAGNESIUM HYDROXIDE SUSPENSION 30 ML UDCUP PO PRN ×2 (16:30→17:00)
[2024-09-04] MEDS ORDERED: GuaiFENesin/D-METHORPHAN [SUGAR-FREE] 200-20MG/10 ML SYRUP UDCUP PO PRN ×2 (16:30→17:00)
[2024-09-04] MEDS ORDERED: NICOTINE 14 MG/24 HOUR PATCH TD PRN ×2 (16:30→17:00)
[2024-09-04] MEDS ORDERED: DOCUSATE SODIUM 100 MG CAPSULE PO PRN ×2 (16:30→17:00)
[2024-09-04] MEDS ORDERED: PETROLATUM,WHITE 28 GM JELLY TP PRN ×2 (16:30→17:00)
[2024-09-04] MEDS ORDERED: ONDANSETRON 4 MG TABLET PO PRN ×2 (16:30→17:00)
[2024-09-04] MEDS ORDERED: MAG HYDROX/ALUMINUM HYD/SIMETH ES 30 ML SUSPENSION UDCUP PO PRN ×2 (16:30→17:00)
[2024-09-04] MEDS ORDERED: ALBUTEROL SULFATE HFA 90 MCG/PUFF 8 GM INHALER IH PRN ×2 (16:30→17:00)
[2024-09-04] MEDS: LOPERAMIDE HCL 2 MG CAPSULE PO PRN (16:45)
[2024-09-04] MEDS ORDERED: LOPERAMIDE HCL 2 MG CAPSULE PO PRN (17:00)
[2024-09-04] MEDS ORDERED: ACETAMINOPHEN 325 MG TABLET PO PRN (17:00)
[2024-09-04] MEDS ORDERED: IBUPROFEN 400 MG TABLET PO PRN (17:00)
[2024-09-04 17:25] VITALS: BP 154/117; PULSE 80; RESP 16; O2SAT 99
[2024-09-04] MEDS: ZOLPIDEM TARTRATE 10 MG TABLET PO PRN (20:11)
[2024-09-04 22:30] VITALS: BP 128/77; PULSE 94; RESP 17; TEMP 98.4; O2SAT 100
[2024-09-04 23:30] VITALS: BP_SYST 128; BP_SYST 148; BP_DIAS 102; BP_DIAS 77; PULSE 85; PULSE 94; RESP 17; RESP 18; TEMP 97.8; TEMP 98.4; O2SAT 100
[2024-09-05] VITALS (11 sets, daily range): BP systolic 118–142; BP diastolic 58–95; PULSE 76–99; RESP 16–19; TEMP 97.4–99.7; O2SAT 97–99
[2024-09-05] MEDS: ACETAMINOPHEN 325 MG TABLET PO PRN (13:44)
[2024-09-05] MEDS: DIVALPROEX SODIUM 500 MG ER TABLET PO SCH (20:27)
[2024-09-06 01:35] VITALS: BP 129/79; PULSE 85; RESP 18; TEMP 97.8; O2SAT 97
[2024-09-06 08:11] VITALS: BP 132/80; PULSE 81; RESP 18; TEMP 97.7; O2SAT 100
[2024-09-06 09:02] LABS: APPEARANCE,URINE CLEAR (CLEAR); GLUCOSE, URINE (UA) NEGATIVE (NEGATIVE); LEUKOCYTE ESTERASE ,URINE NEGATIVE (NEGATIVE); NITRATE,URINE NEGATIVE (NEGATIVE); OCCULT BLOOD,URINE NEGATIVE (NEGATIVE); PH,URINE DRUG SCREEN 6.5 (5.0-8.0); SPECIFIC GRAVITIY, URINE 1.010 (1.003-1.030)
[2024-09-06 09:06] LABS: ALCOHOL, URINE DRUG SCREEN NEGATIVE (NEGATIVE); AMPHET/METH SCREEN,URINE NEGATIVE (NEGATIVE); BARBITURATE SCREEN, URINE NEGATIVE (NEGATIVE); CANNABINOID SCREEN,URINE POSITIVE (NEGATIVE); COCAINE SCREEN,URINE NEGATIVE (NEGATIVE); METHADONE SCREEN, URINE NEGATIVE (NEGATIVE)
[2024-09-06] MEDS: BUPRENORPHINE HCL/NALOXONE HCL 8-2 MG SUBLINGUAL TABLET SL SCH (16:47)
[2024-09-06 20:16] VITALS: BP 130/90; PULSE 81; RESP 16; TEMP 97.8; O2SAT 100
[2024-09-07 09:11] VITALS: BP 138/93; PULSE 96; RESP 18; TEMP 97.2; O2SAT 99
[2024-09-07 20:01] VITALS: BP 163/45; PULSE 97; RESP 17; TEMP 97.5; O2SAT 100
[2024-09-07 22:06] LABS: HEPATITIS C AB (EIA) Non Reactive (Non Reactive)
[2024-09-08 08:24] LABS: PLATELET COUNT (AUTO) 313 K/uL (150-450); RED BLOOD CELL COUNT(AUTO) 5.53 MIL/uL (4.50-5.90); RED CELL DISTRIBUTION WIDTH 14.6 % (11.5-14.5); WHITE BLOOD COUNT (AUTO) 10.5 K/uL (4.5-11.0)
[2024-09-08 10:41] VITALS: BP 130/70; PULSE 91; RESP 17; TEMP 98.3; O2SAT 98
[2024-09-08 16:00] VITALS: BP 136/77; PULSE 87; RESP 17; TEMP 98.6
[2024-09-08 20:07] VITALS: BP 109/92; PULSE 89; RESP 18; TEMP 97.7; O2SAT 89
[2024-09-09 08:03] VITALS: BP 121/82; PULSE 90; RESP 19; TEMP 98.3; O2SAT 97
[2024-09-09] MEDS: IBUPROFEN 400 MG TABLET PO PRN (12:35)
[2024-09-09 16:07] VITALS: BP 128/77; PULSE 88; RESP 18; TEMP 97.6
[2024-09-09] MEDS: GABAPENTIN 100 MG CAPSULE PO SCH (16:08)
[2024-09-09 20:05] VITALS: BP 140/80; PULSE 90; RESP 18; TEMP 98.1; O2SAT 99
[2024-09-10 08:29] VITALS: BP 141/108; PULSE 94; RESP 17; TEMP 97.8; O2SAT 97
[2024-09-10 20:03] VITALS: BP 134/82; PULSE 90; RESP 18; TEMP 98; O2SAT 96
[2024-09-11 09:18] VITALS: BP 101/90; PULSE 86; RESP 17; TEMP 97.8; O2SAT 99
[2024-09-11 16:27] VITALS: BP 111/86; PULSE 85; RESP 18; TEMP 97.6
[2024-09-11 20:27] VITALS: BP 119/82; PULSE 82; RESP 18; TEMP 97.7; O2SAT 99
[2024-09-12 08:53] VITALS: BP 118/94; PULSE 85; RESP 16; TEMP 97.5; O2SAT 95
[2024-09-12 20:45] VITALS: RESP 18
[2024-09-13 09:12] VITALS: BP 124/88; PULSE 82; RESP 18; TEMP 97.8; O2SAT 95
[2024-09-13 20:56] VITALS: BP 125/79; PULSE 83; RESP 18; TEMP 97.7; O2SAT 97
[2024-09-14 08:06] VITALS: BP 129/77; PULSE 94; RESP 19; TEMP 98.1; O2SAT 99
[2024-09-14 16:00] VITALS: BP 131/77; PULSE 88; RESP 18; TEMP 97.8
[2024-09-14 20:10] VITALS: BP 127/82; PULSE 87; RESP 16; TEMP 98; O2SAT 100
[2024-09-15 08:06] VITALS: BP 148/88; PULSE 100; RESP 18; TEMP 97.9; O2SAT 97
[2024-09-15 16:12] VITALS: BP 139/76; PULSE 89; RESP 18; TEMP 97.6
[2024-09-15 20:21] VITALS: BP 115/70; PULSE 74; RESP 16; TEMP 96.8; O2SAT 95
[2024-09-16 08:17] VITALS: BP 115/87; PULSE 72; RESP 18; TEMP 97.4; O2SAT 95
[2024-09-16 16:17] VITALS: BP 129/84; PULSE 82; RESP 18; TEMP 97.8
[2024-09-16 20:05] VITALS: BP 114/60; PULSE 81; RESP 16; TEMP 97.7; O2SAT 100
[2024-09-17 08:11] VITALS: BP 140/90; PULSE 74; RESP 17; TEMP 97.4; O2SAT 99
[2024-09-17 20:38] VITALS: BP 116/87; PULSE 75; RESP 17; TEMP 97.4; O2SAT 96
[2024-09-18 08:59] VITALS: BP 122/85; PULSE 74; RESP 18; TEMP 97.1; O2SAT 99
[2024-09-18 20:05] VITALS: BP 115/85; PULSE 80; RESP 16; TEMP 97.2; O2SAT 100
[2024-09-19 08:18] VITALS: BP 133/78; PULSE 77; RESP 18; TEMP 97.5; O2SAT 96
[2024-09-19 20:02] VITALS: BP 126/86; PULSE 81; RESP 17; TEMP 97.4; O2SAT 97
[2024-09-20 08:24] VITALS: BP 112/76; PULSE 79; RESP 18; TEMP 97.8; O2SAT 96
[2024-09-20 20:02] VITALS: BP 118/83; PULSE 65; RESP 18; TEMP 97.4; O2SAT 98
[2024-09-21 08:36] VITALS: BP 107/76; PULSE 72; RESP 17; TEMP 97.5; O2SAT 98
[2024-09-21 16:14] VITALS: BP 114/79; PULSE 77; RESP 18; TEMP 97.6
[2024-09-21 20:07] VITALS: BP 111/70; PULSE 66; RESP 16; TEMP 97.5; O2SAT 98
[2024-09-22 08:05] VITALS: BP 118/62; PULSE 70; RESP 18; TEMP 97.3; O2SAT 96
[2024-09-22 20:04] VITALS: BP 106/58; PULSE 67; RESP 18; TEMP 97.5; O2SAT 100
[2024-09-23 08:04] VITALS: BP 102/81; PULSE 66; RESP 18; TEMP 97.5; O2SAT 97
[2024-09-23 17:16] VITALS: BP 108/73; PULSE 74; RESP 18; TEMP 97.7
[2024-09-23] MEDS ORDERED: AMLO2.5T96 PO (19:08)
[2024-09-23] MEDS ORDERED: BUPR1TAB46 SL (19:08)
[2024-09-23 20:03] VITALS: BP 113/81; PULSE 77; RESP 16; TEMP 97.4; O2SAT 98
[2024-09-24 00:54] VITALS: BP 106/70; PULSE 60; RESP 16; TEMP 97.3; O2SAT 98
[2024-09-24 08:34] VITALS: BP 127/89; PULSE 86; RESP 18; TEMP 97.7; O2SAT 96
[2024-09-24 10:07] LABS: PLATELET COUNT (AUTO) 196 K/uL (150-450); RED BLOOD CELL COUNT(AUTO) 5.08 MIL/uL (4.50-5.90); RED CELL DISTRIBUTION WIDTH 14.1 % (11.5-14.5); WHITE BLOOD COUNT (AUTO) 6.4 K/uL (4.5-11.0)
[2024-09-24] MEDS ORDERED: GABA-1216 PO (10:49)
[2024-09-24] MEDS ORDERED: DIVA-153 PO (10:50)
[2024-09-24] MEDS ORDERED: OLAN5TAB52 PO (10:50)
== END 2024-09-24 12:45 | disposition home or self-care (01) | DRG 885 ==
LOC: EMS 10:09 → B2S 13:03 → B3A 18:22
PROVIDERS: ADMIT Psychiatry & Neurology Child & Adolescent Psychiatry; ATTEND Psychiatry & Neurology Child & Adolescent Psychiatry
PROC: GZ58ZZZ Individual Psychotherapy, Cognitive-Behavioral (ICD-10-PCS; 2024-09-05)
PROC: GZ56ZZZ Individual Psychotherapy, Supportive (ICD-10-PCS; 2024-09-05)
PROC: GZHZZZZ Group Psychotherapy (ICD-10-PCS; principal; 2024-09-09)
DX: F25.0 Schizoaffective disorder, bipolar type (principal); F11.20 Opioid dependence, uncomplicated; F13.20 Sedative, hypnotic or anxiolytic dependence, uncomplicated; F12.20 Cannabis dependence, uncomplicated; I10 Essential (primary) hypertension; D72.829 Elevated white blood cell count, unspecified; F17.210 Nicotine dependence, cigarettes, uncomplicated; F41.9 Anxiety disorder, unspecified; Z20.822 Contact with and (suspected) exposure to COVID-19; G47.00 Insomnia, unspecified; Z90.49 Acquired absence of other specified parts of digestive tract
CPT/HCPCS: 80048; 80164; 80307; 81003; 85025; 86803; 87340; 99285; G0480

== ENCOUNTER 2024-10-12 09:59 | Inpatient (IN) | payer MEDICARE, MEDICAID ==
[~2024-10-12] VITALS: Ht 172.7 cm; Wt 104.4 kg
[~2024-10-12 09:59] MED LIST changes: -ACET-3385 PO; +AMLO2.5T96 PO; +BUPR1TAB46 SL; +DIVA-153 PO; -DIVA500T69 PO; +GABA-1216 PO; -LISI-893 PO
[2024-10-12 10:55] LABS: COVID AG,FIA SOURCE NASAL SWAB
[2024-10-12 10:58] LABS: PLATELET COUNT (AUTO) 236 K/uL (150-450); RED BLOOD CELL COUNT(AUTO) 4.86 MIL/uL (4.50-5.90); RED CELL DISTRIBUTION WIDTH 15.2 % (11.5-14.5); WHITE BLOOD COUNT (AUTO) 9.6 K/uL (4.5-11.0)
[2024-10-12 11:06] LABS: CALCIUM, TOTAL 8.9 mg/dL (8.8-10.5); CREATININE 0.79 mg/dL (0.60-1.30); GLOMERULAR FILTR. RATE CALC > 60 mL/min (>60); GLUCOSE,RANDOM 106 mg/dL (70-110); SODIUM SERUM 140 mmol/L (136-145); UREA NITROGEN, BLOOD 17 mg/dL (7-18)
[2024-10-12 11:16] LABS: SARS-COV2 (COVID) ANTIGEN,FIA Negative (Negative)
[2024-10-12] MEDS ORDERED: BUSP30TA2 PO (14:17)
[2024-10-12] MEDS ORDERED: PRAZ1 PO (14:17)
[2024-10-12 15:14] LABS: PH,URINE DRUG SCREEN 7.0 (5.0-8.0)
[2024-10-12 15:21] LABS: AMPHET/METH SCREEN,URINE POSITIVE (NEGATIVE); BARBITURATE SCREEN, URINE NEGATIVE (NEGATIVE); CANNABINOID SCREEN,URINE POSITIVE (NEGATIVE); COCAINE SCREEN,URINE NEGATIVE (NEGATIVE); METHADONE SCREEN, URINE NEGATIVE (NEGATIVE)
[2024-10-12 15:22] LABS: ALCOHOL, URINE DRUG SCREEN NEGATIVE (NEGATIVE)
[2024-10-12 17:25] VITALS: O2SAT 97
[2024-10-12] MEDS: BUPRENORPHINE HCL/NALOXONE HCL 8-2 MG SUBLINGUAL TABLET SL ONE (17:31)
[2024-10-12 20:31] VITALS: BP 134/89; PULSE 98; RESP 18; TEMP 98.4; O2SAT 98
[2024-10-12] MEDS ORDERED: ACETAMINOPHEN 325 MG TABLET PO PRN (21:30)
[2024-10-12] MEDS: ZOLPIDEM TARTRATE 10 MG TABLET PO PRN (22:09)
[2024-10-13] MEDS: LORazepam 2 MG/ML VIAL IM ONE (00:56)
[2024-10-13 01:31] VITALS: BP 109/68; PULSE 99; RESP 18; TEMP 97.7; O2SAT 99
[2024-10-13] MEDS ORDERED: MAG HYDROX/ALUMINUM HYD/SIMETH ES 30 ML SUSPENSION UDCUP PO PRN (06:15)
[2024-10-13] MEDS ORDERED: ONDANSETRON 4 MG TABLET PO PRN (06:15)
[2024-10-13] MEDS ORDERED: DOCUSATE SODIUM 100 MG CAPSULE PO PRN (06:15)
[2024-10-13] MEDS ORDERED: LOPERAMIDE HCL 2 MG CAPSULE PO PRN (06:15)
[2024-10-13] MEDS ORDERED: ALBUTEROL SULFATE HFA 90 MCG/PUFF 8 GM INHALER IH PRN (06:15)
[2024-10-13] MEDS ORDERED: MAGNESIUM HYDROXIDE SUSPENSION 30 ML UDCUP PO PRN (06:15)
[2024-10-13] MEDS ORDERED: PETROLATUM,WHITE 28 GM JELLY TP PRN (06:15)
[2024-10-13] MEDS ORDERED: GuaiFENesin/D-METHORPHAN [SUGAR-FREE] 200-20MG/10 ML SYRUP UDCUP PO PRN (06:15)
[2024-10-13 08:25] VITALS: BP 117/66; PULSE 79; RESP 17; TEMP 98.2; O2SAT 100
[2024-10-13 08:43] LABS: PLATELET COUNT (AUTO) 216 K/uL (150-450); RED BLOOD CELL COUNT(AUTO) 4.64 MIL/uL (4.50-5.90); RED CELL DISTRIBUTION WIDTH 14.6 % (11.5-14.5); WHITE BLOOD COUNT (AUTO) 9.1 K/uL (4.5-11.0)
[2024-10-13] MEDS: BUPRENORPHINE HCL/NALOXONE HCL 8-2 MG SUBLINGUAL TABLET SL SCH (08:45)
[2024-10-13 09:01] LABS: ASPARTATE AMINOTRANSFERASE 47 U/L (15-37); CALCIUM, TOTAL 8.7 mg/dL (8.8-10.5); CHOL/HDL RATIO 3.2 (4.2-7.3); CREATININE 0.74 mg/dL (0.60-1.30); GLOMERULAR FILTR. RATE CALC > 60 mL/min (>60); GLUCOSE,RANDOM 98 mg/dL (70-110); LDL CHOL (CALC.) 83 mg/dL (0-130); SODIUM SERUM 141 mmol/L (136-145); TOTAL PROTEIN, SERUM 6.4 g/dL (6.4-8.2); UREA NITROGEN, BLOOD 17 mg/dL (7-18)
[2024-10-13 16:00] VITALS: BP 113/74; PULSE 83; RESP 18; TEMP 97.6
[2024-10-13 20:01] VITALS: BP 105/53; PULSE 79; RESP 17; TEMP 97; O2SAT 100
[2024-10-14 08:06] VITALS: BP 126/65; PULSE 77; RESP 15; TEMP 97.6; O2SAT 98
[2024-10-14 20:04] VITALS: BP 114/68; PULSE 71; RESP 16; TEMP 97.3; O2SAT 98
[2024-10-15] VITALS (7 sets, daily range): BP systolic 105–118; BP diastolic 62–84; PULSE 75–87; RESP 16–18; TEMP 97.1–97.8; O2SAT 97–99
[2024-10-15] MEDS: IBUPROFEN 400 MG TABLET PO PRN (03:33)
[2024-10-15 08:42] LABS: CHOL/HDL RATIO 3.6 (4.2-7.3); LDL CHOL (CALC.) 74.0 mg/dL (0-130)
[2024-10-15] MEDS: NICOTINE 14 MG/24 HOUR PATCH TD PRN (09:12)
[2024-10-15] MEDS: ACETAMINOPHEN 325 MG TABLET PO PRN (10:29)
[2024-10-16 08:51] VITALS: BP 113/79; PULSE 81; RESP 17; TEMP 98.3; O2SAT 99
[2024-10-16 09:45] VITALS: BP 167/82; PULSE 68; RESP 18; TEMP 95.1; O2SAT 100
[2024-10-16 10:45] VITALS: RESP 16
[2024-10-16 22:37] VITALS: BP 120/84; PULSE 91; RESP 18; TEMP 97.3; O2SAT 98
[2024-10-17 08:01] VITALS: BP 136/85; PULSE 76; RESP 17; TEMP 98.4; O2SAT 100
[2024-10-17] MEDS: NICOTINE POLACRILEX 2 MG LOZENGE PO PRN (17:30)
[2024-10-17 20:01] VITALS: BP 104/63; PULSE 74; RESP 16; TEMP 97.4; O2SAT 98
[2024-10-18 08:17] VITALS: BP 162/107; PULSE 69; RESP 17; TEMP 97.3; O2SAT 97
[2024-10-18 10:09] VITALS: BP 125/82; PULSE 86; RESP 18; TEMP 97.5; O2SAT 99
[2024-10-18 20:03] VITALS: BP 93/63; PULSE 69; RESP 17; TEMP 97.5
[2024-10-19 08:43] VITALS: BP 135/86; PULSE 83; RESP 18; TEMP 97.5; O2SAT 99
[2024-10-19 09:35] LABS: APPEARANCE,URINE CLEAR (CLEAR); GLUCOSE, URINE (UA) NEGATIVE (NEGATIVE); LEUKOCYTE ESTERASE ,URINE NEGATIVE (NEGATIVE); NITRATE,URINE NEGATIVE (NEGATIVE); OCCULT BLOOD,URINE NEGATIVE (NEGATIVE); SPECIFIC GRAVITIY, URINE 1.010 (1.003-1.030)
[2024-10-19 20:02] VITALS: BP 107/60; PULSE 71; RESP 18; TEMP 97.5; O2SAT 98
[2024-10-20 08:03] VITALS: BP 114/68; PULSE 80; RESP 18; TEMP 97.6; O2SAT 97
[2024-10-20 20:09] VITALS: BP 95/60; PULSE 72; RESP 17; TEMP 97.3; O2SAT 99
[2024-10-21 08:03] VITALS: BP 111/74; PULSE 82; RESP 18; TEMP 97.5; O2SAT 98
[2024-10-21] MEDS ORDERED: BUPR1TAB46 SL (12:51)
[2024-10-21] MEDS ORDERED: AMLO2.5T96 PO (12:51)
== END 2024-10-21 15:30 | disposition home or self-care (01) | DRG 885 ==
LOC: EMS 10:10 → B2X 17:07 → B3A 10-13 14:48
PROVIDERS: ADMIT Psychiatry & Neurology Child & Adolescent Psychiatry; ATTEND Psychiatry & Neurology Child & Adolescent Psychiatry
PROC: GZ56ZZZ Individual Psychotherapy, Supportive (ICD-10-PCS; 2024-10-13)
PROC: GZ58ZZZ Individual Psychotherapy, Cognitive-Behavioral (ICD-10-PCS; 2024-10-13)
PROC: GZ52ZZZ Individual Psychotherapy, Cognitive (ICD-10-PCS; 2024-10-15)
PROC: GZHZZZZ Group Psychotherapy (ICD-10-PCS; principal; 2024-10-17)
DX: F25.1 Schizoaffective disorder, depressive type (principal); R45.851 Suicidal ideations; F11.20 Opioid dependence, uncomplicated; E78.5 Hyperlipidemia, unspecified; R73.9 Hyperglycemia, unspecified; I10 Essential (primary) hypertension; E66.9 Obesity, unspecified; Z20.822 Contact with and (suspected) exposure to COVID-19; G47.00 Insomnia, unspecified; F41.9 Anxiety disorder, unspecified; F15.10 Other stimulant abuse, uncomplicated; F10.90 Alcohol use, unspecified, uncomplicated; Y90.0 Blood alcohol level of less than 20 mg/100 ml; R07.89 Other chest pain; F12.10 Cannabis abuse, uncomplicated; Z91.148 Patient's other noncompliance with medication regimen for other reason; Z87.891 Personal history of nicotine dependence
CPT/HCPCS: 80048; 80053; 80061; 80307; 81003; 83036; 84436; 84439; 84443; 85025; 99285; G0480; J1200; J1630; J2060

== ENCOUNTER 2024-10-16 18:08 | Emergency (ER) | payer MEDICARE, OTHER ==
[~2024-10-16] VITALS: Ht 170.2 cm; Wt 106.8 kg
[~2024-10-16 18:08] MED LIST changes: +BUSP30TA2 PO; +PRAZ1 PO
[2024-10-16 20:13] VITALS: TEMP 97.5
[2024-10-16 20:51] LABS: PLATELET COUNT (AUTO) 248 K/uL (150-450); RED BLOOD CELL COUNT(AUTO) 4.74 MIL/uL (4.50-5.90); RED CELL DISTRIBUTION WIDTH 14.7 % (11.5-14.5); WHITE BLOOD COUNT (AUTO) 7.8 K/uL (4.5-11.0)
[2024-10-16 20:59] LABS: CALCIUM, TOTAL 8.8 mg/dL (8.8-10.5); CREATININE 0.82 mg/dL (0.60-1.30); GLOMERULAR FILTR. RATE CALC > 60 mL/min (>60); GLUCOSE,RANDOM 119 mg/dL (70-110); SODIUM SERUM 139 mmol/L (136-145); UREA NITROGEN, BLOOD 14 mg/dL (7-18)
[2024-10-16 21:08] LABS: LACTIC ACID 0.9 mmol/L (0.4-2.0)
[2024-10-16 21:09] LABS: TROPONIN I-HIGH SENSITIVITY 73 ng/L (<76)
[2024-10-16 22:00] VITALS: BP 128/85; PULSE 77; RESP 15; O2SAT 99
== END 2024-10-16 23:32 | disposition home or self-care (01) ==
LOC: EMS 18:08
DX: R07.89 Other chest pain (principal); F25.1 Schizoaffective disorder, depressive type; F41.9 Anxiety disorder, unspecified; I10 Essential (primary) hypertension; F17.210 Nicotine dependence, cigarettes, uncomplicated; F12.90 Cannabis use, unspecified, uncomplicated; F15.90 Other stimulant use, unspecified, uncomplicated; F10.90 Alcohol use, unspecified, uncomplicated; Z90.49 Acquired absence of other specified parts of digestive tract; Z79.899 Other long term (current) drug therapy; Z98.890 Other specified postprocedural states; Y90.9 Presence of alcohol in blood, level not specified
CPT/HCPCS: 71045; 80048; 83605; 83690; 83880; 84484; 85025; 93005; 99285; 36415-L1; 36415-TC